=== PATIENT | female | born 1960 | race Caucasian/White ===

== ENCOUNTER → 2017-09-10 15:35 | Outpatient (CLI) | payer OTHER, SELFPAY ==
--- NOTE | 2017-09-10 15:42 | RAD_ITS ---
STUDY: X-RAY - FACIAL BONES REASON FOR STUDY: Female, 57 years old. Contusion of the right orbital region. TECHNIQUE: 3 view(s) of the facial bones. COMPARISON: None. FINDINGS: Normal bilateral frontozygomatic and zygomatic-temporal arches. Normal bilateral medial and inferior orbital mccain. Normal bilateral orbits. Normal visualized nasal bones. Normal anterior nasal spine. The remaining visualized osseous structures are normal. Normal visualized paranasal sinuses. RAD/Facial Bones min 3 Views IMPRESSION: Normal x-ray examination of the facial bones. Electronically Signed: Jorge Parada MD at 16:01 EST Tel [phone], Service support ,
== END ==
PROVIDERS: Family Provider Family Medicine; PCP Family Medicine; Visit Provider Physician Assistant Surgical
DX: S00.11XA Contusion of right eyelid and periocular area, initial encounter (principal)
CPT/HCPCS: 70150

== ENCOUNTER 2017-11-18 06:49 | Day surgery (SDC) | payer BC, SELFPAY ==
[2017-11-18] VITALS (7 sets, daily range): BP systolic 96–154; BP diastolic 62–93; PULSE 74–85; RESP 16–18; TEMP 36.3–37; O2SAT 99–100; BMI 35.5
--- NOTE | 2017-11-18 08:16 | COLBX_PTH ---
PATIENT: JADE OVERTON LOC: EN U#:[id number] AGE/SX: 57/F ROOM: RE11/18/[address]: Dr. Nghia Otero MD : 1960 BED: DIS: 11/18/2017 SPEC #: [id number] RECD: 11/18/17 15:38 STATUS: LIZZIE MAYRA #: [id number] MARIVEL: 11/18/17 08:[address]: Nghia Otero DEPT: SURGICAL PATHOLOGY RECD BY: Atul Lynne ENTERED: 11/19/17 09:29 SP TYPE: COLON BX OTHR DR: Dr. Delano Shaw MD Tissues: Descending colon Procedures: Surgery Specimen Level IV HEADER OPERATION: Colonoscopy PRE-OP DIAGNOSIS: Screening TISSUE SUBMITTED: Polyp descending colon MICROSCOPIC DIAGNOSIS Descending colon polyp, biopsy: Inflammatory polyp. AM:thalia 11/20/17 MICROSCOPIC DESCRIPTION Slides are reviewed. GROSS DESCRIPTION Received in fixative is one container labeled with the patient's name and designated descending colon polyp. The specimen consists of a cauliflower-shaped polyp measuring 1.2 x 0.8 x 0.5 cm. The specimen is bisected and totally submitted in one cassette. / AM:thalia 11/19/17 TC:1 CPT: 68864
--- NOTE | 2017-11-18 08:22 | PCM.HP.STD ---
Problem List (1) Colon cancer screening Status: Acute History of Present Illness Date of Admission: 11/18/17 The patient is a 57 year old F who presents for screening colonoscopy. Past Medical History Allergies No Known Allergies Allergy (Verified 11/15/17 11:49) Home Medications: Ambulatory Orders Medication Instructions Recorded bisoprolol 10 1 tab PO DAILY 30 Days #30 09/10/17 mg-hydrochlorothiazide 6.25 mg tablet lovastatin 40 mg tablet 40 mg PO DAILY 30 Days #30 09/10/17 Smoking Status: Current every day smoker Tobacco Use: Cigarettes Review of Systems Cardiovascular: Denies: Chest Pain, Chest Pressure, Chest Tightness, Palpitations Respiratory: Denies: Cough, Hemoptysis, Shortness of breath at rest, Shortness of breath upon exertion, Wheezing Gastrointestinal: Denies: Abdominal Pain, Constipation, Diarrhea, Hematemesis, Nausea, Melena, Vomiting VTE Information - Inpt Only VTE Present on Admission: No VTE Mechan Device Prophylaxis: None VTE Pharm Prophylaxis ordered?: No Reason prophylaxis not ordered:: Treatment Not Indicated Patient Problems: Active and Suspected Problems (Last Reviewed 10/22/17 @ 14:14 by Adele Lopez) Colon cancer screening (Acute) - Physical Exam Lungs: Clear to auscultation Cardiovascular: Regular rate, Regular Rhythm, No murmurs Abdomen: Bowel Sounds Present, Soft, Non Tender, Non-Distended Vital Signs Temp Pulse Resp BP Pulse Ox 98.6 F 85 16 119/86 H 99 11/18/17 07:21 11/18/17 07:21 11/18/17 07:21 11/18/17 07:21 11/18/17 07:21 Oxygen Delivery Method Room Air Weight: 233 lb 14.567 oz Body Mass Index (BMI) 35.5 Assessment/Plan Active and Suspected Problems (Last Reviewed 10/22/17 @ 14:14 by Adele Lopez) Colon cancer screening (Acute) My plan is to perform a screening colonoscopy.
--- NOTE | 2017-11-18 08:23 | PCM.OPRPT ---
Problem List (1) Colon cancer screening Status: Acute Report of Operation Date of Procedure: 11/18/17 Pre-Operative Diagnosis: z12.11 screening colonoscopy Post-Operative Diagnosis: Same Surgery/Procedure Performed:: [id number] colonoscopy with snare polypectomy of the descending colon polyp Type of Anesthesia:: MAC Anesthesiologist: Teddy Nichols Description of Procedure: Patient was brought into the endoscopy suite. Placed in the left lateral decubitus position. Given graded anesthesia. Scope was inserted into the rectum and directed through the sigmoid colon, descending colon, transverse colon, ascending colon, to the cecum. Operative findings: 1. Cecum: Normal appearance no mass lesions normal ileocecal valve. 2. Ascending colon: Normal appearance no mass lesions 3. Transverse colon: Normal appearance no mass lesions. 4. Descending colon: Normal appearance no mass lesions. Large polyp on a long stalk was identified in the distal descending colon. This was removed with snare cautery technique. I sucked it to the scope and brought it out through the anus without difficulty. 5. Sigmoid colon: Normal appearance no mass lesions. 6. Rectum: Normal appearance no mass lesions retroflexion did not show any significant internal hemorrhoidal disease. The scope was withdrawn digital rectal exam was performed showing no masses. The patient will need another colonoscopy in 1-3 years depending on the pathology report. - Admit VTE Documentation VTE Present on Admission: No VTE Mechan Device Prophylaxis: None VTE Pharm Prophylaxis ordered?: No Reason prophylaxis not ordered:: Treatment Not Indicated
== END 2017-11-18 09:10 | disposition home or self-care (01) ==
LOC: EN 06:49 → AC 06:51
PROVIDERS: Family Provider Family Medicine; PCP Family Medicine; Visit Provider Surgery
PROC: 0DJD8ZZ Inspection of Lower Intestinal Tract, Via Natural or Artificial Opening Endoscopic (ICD-10-PCS; CPT 45378; principal; 2017-11-18 07:55)
DX: Z12.11 Encounter for screening for malignant neoplasm of colon (principal); K51.40 Inflammatory polyps of colon without complications; I10 Essential (primary) hypertension; E78.00 Pure hypercholesterolemia, unspecified; F17.210 Nicotine dependence, cigarettes, uncomplicated; Z79.899 Other long term (current) drug therapy
CPT/HCPCS: 45380; 88305; J7120; J1610

== ENCOUNTER → 2019-06-02 | Outpatient (CLI) | payer BC, SELFPAY ==
--- NOTE | 2019-06-02 13:42 | ART_ITS ---
Reason For Study: Claudication Procedure A bilateral lower extremity continuous wave Doppler with analog waveform analysis,segmental pressures,and ankle brachial indexes without exercise. Left Segmental Pressures Left brachial= 198mmHg. Left posterior tibial artery = 229mmHg. Left dorsalis pedis artery = 223mmHg. Left digit = 175 mmHg. The left dorsalis pedis waveforms are triphasic. The left posterior tibial artery waveforms are triphasic. Right Segmental Pressures Right brachial= 200mmHg. Right posterior tibial artery = 233mmHg. Right dorsalis pedis artery = 237mmHg. Right digit = 161 mmHg. The right dorsalis pedis waveforms are triphasic. The right posterior tibial artery waveforms are triphasic. Indices The right ankle brachial index by the dorsalis pedis is 1.19. The right ankle brachial index by the posterior tibial artery is 1.17. The right digital-brachial index is 0.81. The left ankle brachial index by the dorsalis pedis is 1.12. The left ankle brachial index by the posterior tibial artery is 1.15. The left digital-brachial index is 0.88. Interpretation Summary Triphasic Doppler waveforms are noted at ankle level bilaterally. Pulse-volume recordings appear satisfactory at all levels bilaterally, including low-thigh, calf, ankle, and digital levels. Resting ankle-brachial indices are normal bilaterally. Digital-brachial indices are normal bilaterally. There is no evidence of significant arterial occlusive disease in the lower extremities bilaterally. Ordering Physician: Delano Shaw Referring Physician: Delano Shaw Performed By: Addie Thompson RVT
== END | disposition home or self-care (01) ==
LOC: CVS 13:38
PROVIDERS: Family Provider Family Medicine; PCP Family Medicine; Referring Provider Family Medicine; Visit Provider Family Medicine
DX: I73.9 Peripheral vascular disease, unspecified (principal)
CPT/HCPCS: 93923

== ENCOUNTER 2020-11-23 06:44 | Day surgery (SDC) | payer OTHER, SELFPAY ==
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
--- NOTE | 2020-11-16 12:53 | EKG12_ITS ---
Test Reason : PRE OP Blood Pressure : / mmHG Vent. Rate : 066 BPM Atrial Rate : 066 BPM P-R Int : 166 ms QRS Dur : 086 ms QT Int : 384 ms P-R-T Axes : 056 026 065 degrees QTc Int : 402 ms Normal sinus rhythm Septal [place], age undetermined Confirmed by EMILE SANABRIA, SOULEYMANE ([id number]), industrial editor JOELLEN GU ([id number]) on 11/17/2020 2:08:08 PM Referred By: Grey Francois Confirmed By:SOULEYMANE BAPTISTE MD
[2020-11-16 14:44] LABS: Absolute Lymphocyte Count 2.05 X10^3/uL (0.83-4.51); Absolute Neutrophil Count 6.2 X10^3/uL (2.0-7.7); Basophil# 0.03 X10^3/uL; Basophil% 0.3 % (0-1); Eosinophil# 0.03 X10^3/uL; Eosinophils% 0.3 % (0-5); Hematocrit 44.5 % (37-47); Hemoglobin 14.2 g/dL (12.0-15.0); Lymphocyte # 2.05 X10^3/ul (0.83-4.51); Lymphocyte % 22.1 % (19-41); Mean Corp Hgb Conc 31.9 g/dL (32-36); Mean Corpuscular Hgb 32.9 pg (27.0-32.0); Mean Corpuscular Volume 103.2 fL (81-99); Mean Platelet Vol. 9.3 fl (6.2-12.0); Monocyte# 0.87 X10^3/uL; Monocyte% 9.4 % (0-10); NRBC Flagged by Analyzer 0 % (0-5); Neutrophil # 6.23 X10^3/uL (2.7-7.7); Neutrophil % 67.4 % (47-70); Platelet Count 358 K/mm3 (150-450); RBC Distribution Width CV 12.1 % (11.6-14.6); RBC Distribution Width SD 46.1 fl (35.1-43.9); Red Blood Count 4.31 M/mm3 (4.2-5.4); White Blood Count 9.3 K/mm3 (4.4-11.0)
[2020-11-16 14:58] LABS: Magnesium 2.3 mg/dL (1.6-2.6)
[2020-11-16 15:40] LABS: Anion Gap 7 (5-15); BUN 11 mg/dL (7-18); BUN/Creat Ratio 12.8 RATIO (10-20); Calcium,Total 9.5 mg/dL (8.5-10.1); Chloride 97 mmol/L (98-107); Creatinine, Serum 0.86 mg/dL (0.55-1.02); EST Glomerular Filtration Rate 71 mL/min (>60); Est Glom Filt Rate - Afr Amer 86 mL/min (>60); Glucose 113 mg/dL (74-106); Potassium 4.6 mmol/L (3.5-5.1); Sodium Level 130 mmol/L (136-145)
[2020-11-17 09:56] LABS: Thyroid Stim Hormone (TSH) 2.34 uIU/mL (0.358-3.74)
[2020-11-23] VITALS (9 sets, daily range): BP systolic 126–165; BP diastolic 68–87; PULSE 75–91; RESP 16–18; TEMP 36.2–36.7; O2SAT 94–100; BMI 40.9
[2020-11-23] MEDS: Lactated Ringers 1,000 ML 999 ML IV ×2 (07:19→11:30)
[2020-11-23] MEDS: Scopolamine 1mg/72hr Patch 1 PATCH TD (07:20)
[2020-11-23] MEDS: Gabapentin 600 MG Tablet PO (07:20)
[2020-11-23] MEDS: Celecoxib 200 MG Capsule 400 MG PO (07:20)
[2020-11-23] MEDS: Acetaminophen 500 MG Tablet 1000 MG PO ×2 (07:21→14:00)
[2020-11-23 07:50] LABS: Bedside Glucose 135 mg/dL (70-110)
--- NOTE | 2020-11-23 09:00 | RAD_ITS ---
STUDY: X-RAY - PELVIS AND LEFT HIP REASON FOR EXAM: Left hip arthroplasty. TECHNIQUE: 3 intraoperative images of the pelvis and hip. COMPARISON: None. FINDINGS: There is a left hip arthroplasty without evidence of complication. 8 seconds of fluoroscopy time was used. Electronically Signed: Kwadwo Frederick MD at 14:07 EDT Tel , Service support , RAD/Hip 1 view with Pelvis
[2020-11-23] MEDS: dexAMETHasone 10 MG/ML Vial IV (09:04)
--- NOTE | 2020-11-23 10:35 | OP.PCM_ITS ---
Report of Operation Date of Procedure: 11/23/20 Pre-Operative Diagnosis: Left hip primary osteoarthritis Post-Operative Diagnosis: Left hip primary osteoarthritis Surgery/Procedure Performed:: Left minimally invasive direct anterior hip replacement Description of Surgical Findings:: Stable hip with equal leg lengths pinsetter mechanic automatic: Scott Azul Type of Anesthesia: Spinal Anesthesiologist: Toi Herrera Special Medications: 2 g Ancef, 1 g TXA at incision, 1 g TXA closure, 10 mg Decadron, joint cocktail (5 mg Duramorph, 30 mL of 0.5% Ropivicaine, 1000 units of epinephrine, 30 mg of Toradol) Specimen's removed: Bony cuts Estimated Blood Loss (mL): 200 Fluids Replaced: 1400 ML Description of Procedure: Components used: 1. Accolade 2 Alvarado femoral stem size 5 127? 2. [place] trident 2 acetabular shell size 50 mm 3. Alvarado X3 polyethylene E 4. [place] Biolox delta 36 mm, 5 mm femoral head Brief history operative indications: 60yo female who failed conservative measures for their hip osteoarthritis. X- rays were consistent with osteoarthritis including joint space narrowing, osteophyte formation and subchondral cysts. Total hip replacement was discussed with the patient with risks and benefits including but not limited to blood loss, DVTs, PEs, neurovascular damage, dislocation, general risks of anesthesia including loss of life. Patient demonstrated an understanding medical clearance is obtained the patient was consented for surgery. Procedure: On the date of procedure the patient's L hip was marked in the preoperative area. Patient was then taken back to the operating room where anesthesia assumed control of the C-spine and airway and administered anesthetic. Patient was transferred to the operating table and placed in the supine position. The hips were placed at the break of the bed and a sacral bump was placed. L The lower extremity was then prepped out in a sterile fashion using chlorhexidine while the surgeon scrubbed. The PA was vital in the positioning of the patient. Upon reentering the room the left lower extremity was draped in the standard orthopedic fashion and the incision was marked. A timeout was called and everyone agreed upon the side, the site, the procedure be performed, antibody given, and patient's identity. At this time incision was made through skin, subcutaneous tissue, and fat down to fascia. The fascia was then incised and the TFL was retracted laterally. A retractor was placed on the lateral border of the femoral neck. Attention was directed to the inferior portion of the approach and all crossing vessels were identified and appropriately coagulated. A retractor was then placed on the medial portion of the femoral neck. The anterior capsule was then cleared of all soft tissue and then H shaped capsulotomy was made. The retractors were then placed inside the capsule. The femoral neck was identified and a cleanup cut was made. At this time a power corkscrew was used to remove the femoral head. Attention was then turned toward the acetabulum where the soft tissues were appropriately retracted and the acetabulum was sequentially reamed to 50 mm. A 50 mm cup was then selected and impacted into place. Acetabular liner was impacted into place and locking mechanism was verified. The position of the acetabular cup was then verified under live fluoroscopy. Attention was then turned to the femur. Soft tissue releases on the medial and lateral femoral neck were appropriately done, the leg was externally rotated and lateralized. A Candelario retractor was placed medially and proximally to the greater trochanter this allowed appropriate visualization and exposure of the femoral canal. Rongeour was then used to remove excess lateral bone. A canal finder and entry broach were used to open the proximal canal. Once we verified we were down the femoral canal we subsequently broached up to a size 5 femur. The appropriate neck was placed in the previously selected head was trialed with a 5 mm neck. Traction was pulled and the hip was reduced with internal rotation. Once it was appropriately reduced and stability was checked. There was minimal shuck, equal leg lengths and appropriate stability with hype rextension and external rotation as well as with 90? flexion and internal rotation. Fluoroscopy was then also used to verify the position of the components and leg lengths using the contralateral side for comparison. The trial components were then dislocated the proximal femur was again exposed and the components were removed from the wound. The final components were verified and opened. The wound was copiously irrigated out with normal saline. The acetabulum was checked for any residual debris. The final components were placed and impacted. Traction and internal rotation were again used to reduce the hip. After adequate reduction the hip remained stable with appropriate leg lengths. The final components were once again checked with live fluoroscopy and were found to be satisfactory. The wound was then copiously irrigated with normal saline once more, and hemostasis was obtained. Closure was then done using #1 Vicryl runner to close the fascia. A 2-0 vicryl interuppted sutures were used to close the subcutaneous skin. A 3-0 Monocryl and Steri-Strips were used for final skin closure. A Silverlon dressing was placed. Patient was awakened by anesthesia and transferred to the [facility]. Patient was then transferred to the PACU for recovery. Postoperative plan: Patient will get 24 hours postop antibiotics. Patient will get in-house physical therapy and will be weight-bear as tolerated. Patient will follow up in office in 2 weeks for a wound check and x-rays. Aspirin 81 mg twice daily. Complications No intraoperative complications Admit VTE Documentation VTE Present on Admission: No VTE Mechan Device Prophylaxis: SCD's and Thigh High FRAN Hose VTE Pharm Prophylaxis ordered?: Yes
--- NOTE | 2020-11-23 11:20 | RAD_ITS ---
STUDY: X-RAY - PELVIS AND LEFT HIP REASON FOR EXAM: Postop left hip arthroplasty. TECHNIQUE: 2 views of the pelvis and hip. COMPARISON: Intraoperative images. FINDINGS: There is postoperative gas in the soft tissues and surgical clips in the pelvis. Normal bilateral superior and inferior pubic rami. Normal pubic symphysis. Normal bilateral ischial tuberosities. There is a left hip arthroplasty without evidence of complication. RAD/Hip Min 2 Views (Portable) IMPRESSION: Uncomplicated left hip arthroplasty. Electronically Signed: Kwadwo Frederick MD at 14:03 EDT Tel , Service support ,
[2020-11-23] MEDS: Cefazolin 1 GM/50 ML BAG IV (13:27)
== END 2020-11-23 15:35 ==
LOC: SDC 06:44 → AC 06:45
PROVIDERS: Anesthesiology; PCP Family Medicine; Referring Provider Specialist; Visit Provider Specialist
PROC: (CPT 27284; principal; 2020-11-23 08:35)
DX: M16.12 Unilateral primary osteoarthritis, left hip (principal); F17.210 Nicotine dependence, cigarettes, uncomplicated; I10 Essential (primary) hypertension; E78.00 Pure hypercholesterolemia, unspecified; Z79.1 Long term (current) use of non-steroidal anti-inflammatories (NSAID); Z79.899 Other long term (current) drug therapy; Z20.828 Contact with and (suspected) exposure to other viral communicable diseases
CPT/HCPCS: 27130; 36415; 73501; 73502; 76000; 80048; 82962; 83735; 84443; 85025; 87081; 87426; 93005; 97162; C1776; C9803; J7120; J2405

== ENCOUNTER → 2020-12-09 13:39 | Outpatient (CLI) | payer OTHER, SELFPAY ==
[2020-11-23 07:26] VITALS: BMI 40.9
--- NOTE | 2020-12-09 13:42 | VDLE_ITS ---
Reason For Study: RLE swelling, S/P LT THR RIGHT GSV is normal. CFV is compressible, spontaneous, phasic, competent and demonstrates normal augmentation. FV is compressible, spontaneous, phasic, competent and demonstrates normal augmentation. POP V is compressible, spontaneous, phasic, competent and demonstrates normal augmentation. T/P Trunk is compressible. PTV is compressible. RT PerV is compressible. Procedure This is a venous duplex using B-mode, color flow and spectral Doppler. Exam performed in department. The exam was diagnostic. A preliminary report was called and/or faxed to Dr. Shaw @ 2:05 pm @ [phone]. VL/Venous Duplex US, Unilateral Interpretation Summary Deep veins of the right lower extremity are patent and compressible segmentally . There is no evidence of right lower extremity deep vein thrombosis. Valvular competence lula ears intact within the proximal deep venous system on the right . The right great saphenous vein a ppears patent and compressible segmentally. Ordering Physician: Delano Shaw Referring Physician: Delano Shaw Performed By: Louann Maynard, SOLOMON, RVT
== END ==
PROVIDERS: PCP Family Medicine; Referring Provider Family Medicine; Visit Provider Family Medicine
DX: R60.0 Localized edema (principal)
CPT/HCPCS: 93971

== ENCOUNTER 2021-01-24 11:00 | Outpatient (RCR) | payer OTHER, SELFPAY ==
[2020-11-23 07:26] VITALS: BMI 40.9
[2021-01-17 09:58] VITALS: BP 183/83; PULSE 67; RESP 16; TEMP 36.6; BMI 38.0
--- NOTE | 2021-01-17 12:32 | HP.PCM_ITS ---
History of Present Illness Date of Service: 01/17/21 Chief Complaint: Infected, dehiscent surgical wound?left hip History of Wound: This is a 60-year-old female who underwent left total hip replacement at [facility] on November 23, 2020. Approximately 2 weeks postoperatively, the patient developed a surgical wound dehiscence. She has been under the care of her orthopedic surgeon, Dr. Grey Francois, who was [facility] the [facility] for further evaluation and management. Dr. Francois has been managing the patient in the postop period, and feels as though the underlying fascia remains intact. Current management includes the use of a silver alginate. Patient is currently in the midst of a course of oral doxycycline. It appears as though no recent wound cultures have been obtained. Routine laboratory studies were obtained preoperatively (11/16/20), and no significant abnormalities are noted. The patient is now fully ambulatory. She is consuming a protein shake on a daily basis. Referral was for the preparation and implementation of negative pressure wound therapy, if felt to be appropriate. [facility] Medical History (Updated 01/17/21 @ 12:[address] Teddy García MD) Alcohol use disorder, mild, abuse Colon cancer screening Contusion of right eyebrow Hyperlipidemia Hypertension Hypertension Laceration of eyebrow, right Obesity (BMI 30-39.9) Surgical wound dehiscence Surgical wound infection Tobacco abuse Tobacco abuse counseling Home Medications lovastatin 40 mg tablet 40 mg PO DAILY 30 Days #30 09/10/17 [History Last Taken Unknown] cyanocobalamin (vitamin B-12) 1,000 mcg PO DAILY 11/09/20 [History Last Taken Unknown] escitalopram oxalate 5 mg PO DAILY 11/09/20 [History Last Taken Unknown] meloxicam 15 mg PO BID 11/09/20 [History Last Taken Unknown] bisoprolol fumarate 10 mg PO DAILY 01/17/21 [History Last Taken Unknown] Allergy/AdvReac Type Severity Reaction Status Date / Time No Known Allergies Allergy Verified 11/09/20 13:58 Family History (Updated 11/27/17 @ 13:55 by Louann Hoffman) Father Diabetes Mother Hypertension Surgical History (Updated 01/17/21 @ 12:[address] Teddy García MD) History of removal of cyst History of tonsillectomy History of tubal ligation S/P colonoscopy with polypectomy (~11/18/17) Status post left hip replacement Social History (Updated 11/28/17 @ 06:[address] Nghia Otero MD) Smoking Status: Current every day smoker alcohol intake: never substance use type: does not use Vital Signs Vital Signs Vital Signs: 01/17/21 09:58 Temperature 97.9 F Temperature Source Temporal Pulse Rate 67 Respiratory Rate 16 Blood Pressure 183/83 H Blood Pressure Mean 116 Blood Pressure Source Monitor Blood Pressure Position Sitting Blood Pressure Location Right Arm Oxygen Delivery Method Room Air Weight Weight: 250 lb Body Mass Index (BMI) 38.0 Physical Exam Const alert, oriented x3, no apparent distress and well nourished General Appearance: cooperative, comfortable and well developed Orientation / Consciousness: awake, oriented to person, oriented to place and oriented to time HEENT normocephalic and head/scalp atraumatic Head and Scalp: normal to inspection, normocephalic and atraumatic External Ear: external ears normal Eyes PERRL and EOMs intact bilaterally General Eye: normal appearance of both eyes Resp normal respiratory effort, normal air movement, no retractions and no use of accessory muscles Effort and Inspection: able to speak in complete sentences Extremity no calf tenderness General Extremity: Negative for clubbing or cyanosis Skin Wound Narrative: And open, infected, dehiscent surgical wound is noted on the patient's left hip, related to recent surgical left hip replacement. There is a disagreeable odor. Contained within the dehiscent wound is a significant amount of necrotic, nonviable, and purulent material. There is slight undermining. Wound dimensions are documented elsewhere. There is no significant surrounding erythema or cellulitis. Cultures have been obtained by swab for both aerobic and anaerobic bacterial growth. Neuro oriented x3, CN's II-XII intact bilaterally and moves all extremities Sensorium / Orientation: awake, alert, oriented to person, oriented to place and oriented to time Speech: speech normal Psych Appearance: grossly normal and appropriate Attitude: calm and engaged Activity / Motor Behavior: appropriate eye contact Speech: normal speech Mood & Affect: euthymic mood Debridement Note Debridement Note Post-Debridement Measurements and Additional Note: Post-Debridement Francisco urements/Treatment [id number] - Nurse 1 - General Ulcer Assessment Start: 01/17/21 09:58 Freq: Status: Active Protocol: TAMIKO Activity Type Activity Date Activity User E-Sign Co-Sign Detail Recorded Client Recorded Date Recorded By Document 01/17/21 09:58 [id number] 01/17/21 10:06 01/17/21 09:58 WC - Today's Visit Information Type of service Initial Visit Arrival Mode Ambulatory Transfer Assistance None Accompanied by self Patient Identification Verified (Name & Yes ) Patient Requires Transmission-Based No Precautions Safety Precautions NA Height and Weight Height 5 ft 8 in Weight 250 lb Weight in Pounds 250.0 lbs Body Mass Index (BMI) 38.0 BMI Classification Obese BSA - Radha 2.25 Vital Signs Temperature (97.8 F-99.1 F) 97.9 F Temperature Source Temporal Pulse Rate (60-100) 67 Pulse Location Monitor Respiratory Rate (12-18) 16 Respiratory rate source Observation Oxygen Delivery Method Room Air Blood Pressure (90/60-120/80) 183/83 H Blood Pressure Mean 116 Source Monitor Position Sitting Blood Pressure Location Right Arm History Since Last Visit- (Skip if this is Patient's initial visit) Left Footwear Regular Shoe Right Footwear Regular Shoe Pain Scale: 0-10 Numeric Is Patient Pain Free? Yes Communication Assessment Preferred language Arabic Loans Consultant Required No Able to Read Yes Able to Write Yes Communication Tools None Caregiver Communication Skills No Impairment Impairment Right Hearing Abillity Normal Left Hearing Abillity Normal Visual Assistive Devices Glasses Teaching Assessment Preferences Verbal,Written Barriers to Learning None Readiness To Learn Excellent Willingness to Engage in Self Management High Activies Readiness to Engage in Self Management High Activities Anxiety Level Calm Cooperation Cooperative Perception Coherent Interest in Health Problem Asks Questions Education Importance Acknowledges Need Does Patient Smoke tobacco or other Yes substances Smoking Status Current every day smoker Is Patient Diabetic No Functional Assessment Recent Decline in Ability to Perform Denies Any Declines Assistive Device With Patient No Culture/Mandaeism/Client Support Associate Cultural/Mandaeism Needs that may affect No Treatment Plan Would you allow our hospital specifications writer to No meet you for the purpose of spiritual/ emotional support? Client Support Associate to contact place of [facility] No Teaching: Wound Center *Welcome to the Wound Center -Person Taught Patient -Teaching Method Discussion -Response to teaching Verbalize understanding - Nurse 1 - General Ulcer Measurement Start: 01/17/21 09:58 Freq: Status: Active Protocol: Activity Type Activity Date Activity User E-Sign Co-Sign Detail Recorded Client Recorded Date Recorded By Document 01/17/21 09:58 [id number] 01/17/21 10:06 MW 01/17/21 09:58 Wound Center Nurse 1 #1 left hip -Combined with other wound No -Current Size (cm) - Length 1.8 -Current Size (cm) - Width 5.0 -Current Size (cm) - Depth 2.0 -Total Square Cm 9.00 -Date of Last Picture (Recall this 01/17/21 field) -Photo Taken Yes -Epithelialization None Present -Tunneling No -Undermining/Tunneling No -Circular Undermining No -Exudate Amt Large -Exudate Type Yellow/Green -Wound Margin Distinct, Outline Attached -Granulation Amt Small (1-33%) -Granulation Quality Viking -Slough/Fibrin Yes -Necrosis Amt Large (67-100%) -Necrotic Tissue Type Adherent Slough -Structure Exposed N/A -Texture (Crystal-wound Skin Appearance) Assessed, Localized Edema -Moisture (Crystal-wound Skin Appearance) No Abnormality, Assessed -Color (Crystal-wound Skin Appearance) No Abnormality, Assessed -Temperature (Crystal-wound Skin No Abnormality Appearance) (Pt Warm) -Tenderness on Palpation (Crystal-wound Yes Skin Appearance) -Ulcer Cleansing Rinsed/ Irrigated with Saline -Foul Odor after Cleansing No -Anesthetic Used 5% Lidocaine Gel Lower Limb Edema Present No WC - Nurse 2 - General Ulcer CM Notes Start: 01/17/21 09:58 Freq: Status: Active Protocol: Activity Type Activity Date Activity User E-Sign Co-Sign Detail Recorded Client Recorded Date Recorded By Document 01/17/21 11:47 PL [id number] 01/17/21 11:48 PL 01/17/21 11:47 Wound Center Nurse 2 #1 left hip -Time 10:32 -Correct Patient Yes -Correct Side, Site, Position Yes -Correct Procedure Yes -Procedure Performed Yes -Type of Procedure Debridement -Clinical Debridement Subcutaneous -Tissue Removed Subcutaneous -Post Debridement (cm) - Length 1.8 -Post Debridement (cm) - Width 5.0 -Post Debridement (cm) - Depth 2.0 -Total Square (Post) (cm) 9.00 -Area of Debridement (cm) - Length 1.8 -Area of Debridement (cm) - Width 5.0 -Total Square (Area) (cm) 9.00 -Tunneling No -Undermining/Tunneling No -Circular Undermining No -Wound/Ulcer Outcome Not Healed -Ulcer Cleansing Rinsed/ Irrigated with Saline -Foul Odor after Cleansing No -Bioengineered Tissue No -Bleeding Controlled with Pressure -Treatment Response Procedure Tolerated Well -Debridement - Subq, 1st 20sq cm Yes Pain Scale: 0-10 Numeric Is Patient Pain Free? Yes - Nurse 3 - General Ulcer D/C NN Start: 01/17/21 09:58 Freq: Status: Active Protocol: Activity Type Activity Date Activity User E-Sign Co-Sign Detail Recorded Client Recorded Date Recorded By Document 01/17/21 10:50 MW [id number] 01/17/21 10:51 MW 01/17/21 10:50 Wound Care Nurse 3 #1 left hip -Ulcer Cleansing Rinsed/ Irrigated with Saline -Foul Odor after Cleansing No -Negative Pressure Wound Therapy N/A -Primary Dressing Covered/Secured with Dry Gauze, Secured with Tape -Other Covering abd pad Treatment Response Procedure Tolerated Well Pain Scale: 0-10 Numeric Is Patient Pain Free? Yes Teaching: Wound Center Dressing Your Wound -Person Taught Patient -Teaching Method Discussion, Demonstration -Response to teaching Verbalize understanding WC - Visit Discharge Discharge Condition Stable Ambulatory Status Ambulatory Transportation Private Auto Accompanied by self Medication Reconcilliation completed & No provided to patient/care provider Clinical Summary of Care Provided Yes Wound debrided: Left hip Laterality: Left Type of Debridement: Excisional debridement Anesthesia Used: 5% Lidocaine Gel Depth: Down to and including healthy tissue and in the subcutaneous layer Percentage of wound debrided: 100 Instrument Used: 5mm curette Tissue Removed: Bioburden, necrotic tissue, purulent material Severity: Fat Layer Exposed Amount of bleeding with debridement: Mild Bleeding Controlled with: Compression and gauze Patient tolerated procedure: Patient tolerated procedure well Debridement Free Text: The debridement was carried down through the dermal laye rs and into the subcutaneous tissue. The underlying fascia appears to be intact. Assessment/Plan Assessment/Plan (1) Surgical wound dehiscence: CODE(S): T81.31XA - Disruption of external operation (surgical) wound, not elsewhere classified, initial encounter (2) Surgical wound infection: CODE(S): T81.49XA - Infection following a procedure, other surgical site, initial encounter (3) Status post left hip replacement: CODE(S): Z96.642 - Presence of left artificial hip joint (4) Obesity (BMI 30-39.9): CODE(S): E66.9 - Obesity, unspecified (5) Hypertension: CODE(S): I10 - Essential (primary) hypertension (6) Hyperlipidemia: CODE(S): E78.5 - Hyperlipidemia, unspecified (7) Tobacco abuse: CODE(S): Z72.0 - Tobacco use (8) Tobacco abuse counseling: CODE(S): Z71.6 - Tobacco abuse counseling (9) Alcohol use disorder, mild, abuse: CODE(S): F10.10 - Alcohol abuse, uncomplicated PLAN: This is a 60-year-old female who presents status post left total hip replacement surgery performed on November 23, 2020. Approximately 2 weeks following her surgery, her surgical incision dehisced, and has been managed by her orthopedic surgeon, Dr. Grey Francois, since that time. Patient has now been referred for additional management. There is concern that the surgical wound may be infected, judging by its appearance and the odor emanating from the wound itself. Swab cultures have been obtained for both aerobic and anaerobic bacterial growth. Results will be awaited. Patient is currently on doxycycline, and has been instructed to continue the doxycycline prescription to completion. The patient is a smoker, and has been counseled as to the hazards of smoking, and how it may adversely affect wound healing. She has been advised to quit. Recent laboratory results have been reviewed, and appear satisfactory. We are to implement the use of one quarter strength Dakin's solution soaked gauze, which will be applied topically on a daily basis. The goal is to address issues related to suspected infection, improved the wound status, and ultimately resort to a modality such as negative pressure wound therapy (NPWT). The patient is to return in 1 week for reassessment. Total time: 65 minutes.
[2021-01-24 11:15] VITALS: BP 178/100; PULSE 87; TEMP 36.3; BMI 38.0
--- NOTE | 2021-01-24 12:42 | HP.PCM_ITS ---
History of Present Illness Date of Service: 01/24/21 Chief Complaint: Infected, dehiscent surgical wound?left hip History of Wound: This is a 60-year-old female who underwent left total hip replacement at [facility] on November 23, 2020. Approximately 2 weeks postoperatively, the patient developed a surgical wound dehiscence. She had been under the care of her orthopedic surgeon, Dr. Grey Francois, who [facility] and shravan godoy. Dr. Francois had been managing the patient in the postop period, and felt as though the underlying fascia remained intact. Management included the use of a silver alginate. Patient was treated with a course of oral doxycycline. No recent wound cultures had been obtained. Routine laboratory studies were obtained preoperatively (11/16/20), and no significant abnormalities were noted. The patient is fully ambulatory. She is consuming a protein shake on a daily basis. Referral was for the preparation and implementation of negative pressure wound therapy, if felt to be appropriate. [facility] Medical History (Updated 01/17/21 @ 12:[address] Teddy García MD) Alcohol use disorder, mild, abuse Colon cancer screening Contusion of right eyebrow Hyperlipidemia Hypertension Hypertension Laceration of eyebrow, right Obesity (BMI 30-39.9) Surgical wound dehiscence Surgical wound infection Tobacco abuse Tobacco abuse counseling Home Medications lovastatin 40 mg tablet 40 mg PO DAILY 30 Days #30 09/10/17 [History Last Taken Unknown] cyanocobalamin (vitamin B-12) 1,000 mcg PO DAILY 11/09/20 [History Last Taken Unknown] escitalopram oxalate 5 mg PO DAILY 11/09/20 [History Last Taken Unknown] meloxicam 15 mg PO BID 11/09/20 [History Last Taken Unknown] bisoprolol fumarate 10 mg PO DAILY 01/17/21 [History Last Taken Unknown] Allergy/AdvReac Type Severity Reaction Status Date / Time No Known Allergies Allergy Verified 11/09/20 13:58 Family History (Updated 11/27/17 @ 13:55 by Louann Hoffman) Father Diabetes Mother Hypertension Surgical History (Updated 01/17/21 @ 12:[address] Teddy García MD) History of removal of cyst History of tonsillectomy History of tubal ligation S/P colonoscopy with polypectomy (~11/18/17) Status post left hip replacement Social History (Updated 11/28/17 @ 06:[address] Nghia Otero MD) Smoking Status: Current every day smoker alcohol intake: never substance use type: does not use Vital Signs Vital Signs Vital Signs: 01/24/21 11:15 Temperature 97.3 F L Temperature Source Temporal Pulse Rate 87 Blood Pressure 178/100 H Blood Pressure Mean 126 Blood Pressure Source Monitor Blood Pressure Position Semi-Fowlers Blood Pressure Location Right Arm Weight Weight: 250 lb Body Mass Index (BMI) 38.0 Physical Exam Const alert, oriented x3, no apparent distress and well nourished General Appearance: cooperative, comfortable and well developed Orientation / Consciousness: awake, oriented to person, oriented to place and or iented to time Nutritional Appearance: obese HEENT normocephalic Head and Scalp: normal to inspection, normocephalic and atraumatic External Ear: external ears normal Eyes PERRL and EOMs intact bilaterally General Eye: normal appearance of both eyes Resp normal respiratory effort, normal air movement, no retractions and no use of accessory muscles Effort and Inspection: able to speak in complete sentences Extremity no clubbing, cyanosis or edema and no calf tenderness General Extremity: Negative for clubbing or cyanosis Skin Skin Narrative: The dehiscent surgical wound persists on the left hip. There has been significant improvement in the appearance of the wound, with far less non-viable and necrotic tissue. There is no current odor. There is no significant drainage. There is no surrounding erythema or cellulitis. There is a moderate amount of bioburden. Dimensions are documented elsewhere. Neuro oriented x3, CN's II-XII intact bilaterally and moves all extremities Speech: speech normal Psych Appearance: grossly normal and appropriate Activity / Motor Behavior: appropriate eye contact Speech: normal speech Mood & Affect: euthymic mood Thought Process: normal thought process Debridement Note Debridement Note Post-Debridement Measurements and Additional Note: Post-Debridement Measurements/Treatment WC - Nurse 1 - General Ulcer Assessment Start: 01/17/21 09:58 Freq: Status: Active Protocol: TAMIKO Activity Type Activity Date Activity User E-Sign Co-Sign Detail Recorded Client Recorded Date Recorded By Document 01/17/21 09:58 MW [id number] 01/17/21 10:06 MW Document 01/24/21 11:15 KR [id number] 01/24/21 11:16 KR 01/17/21 01/24/21 09:58 11:15 WC - Today's Visit Information Type of service Initial Visit Follow-up Visit (Physician/BUILDING MAINTENANCE MECHANIC ) Arrival Mode Ambulatory Ambulatory Transfer Assistance None Accompanied by self Patient Identification Verified (Name & Yes Yes ) Patient Requires Transmission-Based No Precautions Safety Precautions NA Height and Weight Height 5 ft 8 in Weight 250 lb Weight in Pounds 250.0 lbs Body Mass Index (BMI) 38.0 38.0 BMI Classification Obese Obese BSA - Radha 2.25 Vital Signs Temperature (97.8 F-99.1 F) 97.9 F 97.3 F L Temperature Source Temporal Temporal Pulse Rate (60-100) 67 87 Pulse Location Monitor Monitor Respiratory Rate (12-18) 16 Respiratory rate source Observation Oxygen Delivery Method Room Air Blood Pressure (90/60-120/80) 183/83 H 178/100 H Blood Pressure Mean 116 126 Source Monitor Monitor Position Sitting Semi-Fowlers Blood Pressure Location Right Arm Right Arm Have you changed medications since your No last visit? Any new allergies or adverse reactions No Had a fall/change in ADL's that may No increase risk of falls Signs or symptoms of abuse and/or No neglect since last visit Has dressing in place as prescribed Yes Has compression in place as prescribed N/A Has offloadiing in place as prescribed N/A Experienced any changes in pain level or No management History Since Last Visit- (Skip if this is Patient's initial visit) Left Footwear Regular Shoe Regular Shoe Right Footwear Regular Shoe Regular Shoe Pain Scale: 0-10 Numeric Is Patient Pain Free? Yes Yes Communication Assessment Preferred language Divehi Licensed Surveyor Required No Able to Read Yes Able to Write Yes Communication Tools None Caregiver Communication Skills No Impairment Impairment Right Hearing Abillity Normal Left Hearing Abillity Normal Visual Assistive Devices Glasses Teaching Assessment Preferences Verbal,Written Barriers to Learning None Readiness To Learn Excellent Willingness to Engage in Self Management High Activies Readiness to Engage in Self Management High Activities Anxiety Level Calm Cooperation Cooperative Perception Coherent Interest in Health Problem Asks Questions Education Importance Acknowledges Need Does Patient Smoke tobacco or other Yes substances Smoking Status Current every day smoker Is Patient Diabetic No Functional Assessment Recent Decline in Ability to Perform Denies Any Declines Assistive Device With Patient No Culture/Tenriism/Resource Management Specialist Cultural/Tenriism Needs that may affect No Treatment Plan Would you allow our hospital painter rough to No meet you for the purpose of spiritual/ emotional support? Resource Management Specialist to contact place of uatsdin No Teaching: Wound Center *Welcome to the Wound Center -Person Taught Patient -Teaching Method Discussion -Response to teaching Verbalize understanding WC - Nurse 1 - General Ulcer Measurement Start: 01/17/21 09:58 Freq: Status: Active Protocol: Activity Type Activity Date Activity User E-Sign Co-Sign Detail Recorded Client Recorded Date Recorded By Document 01/17/21 09:58 MW [id number] 01/17/21 10:06 MW Document 01/24/21 11:15 KR [id number] 01/24/21 11:16 KR 01/17/21 01/24/21 09:58 11:15 Wound Center Nurse 1 #1 left hip -Combined with other wound No -Current Size (cm) - Length 1.8 4.6 -Current Size (cm) - Width 5.0 1.9 -Current Size (cm) - Depth 2.0 1.8 -Total Square Cm 9.00 8.74 -Date of Last Picture (Recall this 01/17/21 field) -Photo Taken Yes -Epithelialization None Present -Tunneling No -Undermining/Tunneling No -Circular Undermining No -Exudate Amt Large Large -Exudate Type Yellow/Green Yellow/Green -Wound Margin Distinct, Distinct, Outline Outline Attached Attached -Granulation Amt Small (1-33%) Medium (34-66%) -Granulation Quality [place] Red -Slough/Fibrin Yes -Necrosis Amt Large (67-100%) Medium (34-66%) -Necrotic Tissue Type Adherent Slough Adherent Slough -Structure Exposed N/A -Texture (Crystal-wound Skin Appearance) Assessed, Assessed, Localized Edema Scarring -Moisture (Crystal-wound Skin Appearance) No Abnormality, No Abnormality, Assessed Assessed -Color (Crystal-wound Skin Appearance) No Abnormality, No Abnormality, Assessed Assessed -Temperature (Crystal-wound Skin No Abnormality No Abnormality Appearance) (Pt Warm) (Pt Warm) -Tenderness on Palpation (Crystal-wound Yes No Skin Appearance) -Ulcer Cleansing Rinsed/ Rinsed/ Irrigated with Irrigated with Saline Saline -Foul Odor after Cleansing No No -Anesthetic Used 5% Lidocaine 5% Lidocaine Gel Gel Lower Limb Edema Present No WC - Nurse 2 - General Ulcer CM Notes Start: 01/17/21 09:58 Freq: Status: Active Protocol: Activity Type Activity Date Activity User E-Sign Co-Sign Detail Recorded Client Recorded Date Recorded By Document 01/17/21 11:47 PL [id number] 01/17/21 11:48 PL 01/17/21 11:47 Wound Center Nurse 2 -Time 10:32 -Correct Patient Yes -Correct Side, Site, Position Yes -Correct Procedure Yes -Procedure Performed Yes -Type of Procedure Debridement -Clinical Debridement Subcutaneous -Tissue Removed Subcutaneous -Post Debridement (cm) - Length 1.8 -Post Debridement (cm) - Width 5.0 -Post Debridement (cm) - Depth 2.0 -Total Square (Post) (cm) 9.00 -Area of Debridement (cm) - Length 1.8 -Area of Debridement (cm) - Width 5.0 -Total Square (Area) (cm) 9.00 -Tunneling No -Undermining/Tunneling No -Circular Undermining No -Wound/Ulcer Outcome Not Healed -Ulcer Cleansing Rinsed/ Irrigated with Saline -Foul Odor after Cleansing No -Bioengineered Tissue No -Bleeding Controlled with Pressure -Treatment Response Procedure Tolerated Well -Debridement - Subq, 1st 20sq cm Yes Pain Scale: 0-10 Numeric Is Patient Pain Free? Yes WC - Nurse 3 - General Ulcer D/C NN Start: 01/17/21 09:58 Freq: Status: Active Protocol: Activity Type Activity Date Activity User E-Sign Co-Sign Detail Recorded Client Recorded Date Recorded By Document 01/17/21 10:50 MW [id number] 01/17/21 10:51 MW 01/17/21 10:50 Wound Care Nurse 3 #1 left hip -Ulcer Cleansing Rinsed/ Irrigated with Saline -Foul Odor after Cleansing No -Negative Pressure Wound Therapy N/A -Primary Dressing Covered/Secured with Dry Gauze, Secured with Tape -Other Covering abd pad Treatment Response Procedure Tolerated Well Pain Scale: 0-10 Numeric Is Patient Pain Free? Yes Teaching: Wound Center Dressing Your Wound -Person Taught Patient -Teaching Method Discussion, Demonstration -Response to teaching Verbalize understanding WC - Visit Discharge Discharge Condition Stable Ambulatory Status Ambulatory Transportation Private Auto Accompanied by self Medication Reconcilliation completed & No provided to patient/care provider Clinical Summary of Care Provided Yes Wound debrided: Left hip wound Laterality: Left Type of Debridement: Excisional debridement Anesthesia Used: 5% Lidocaine Gel Depth: Down to and including healthy tissue and in the subcutaneous layer Percentage of wound debrided: 100 Instrument Used: 5mm curette Severity: Fat Layer Exposed Amount of bleeding with debridement: Mild Bleeding Controlled with: Compression and gauze Patient tolerated procedure: Patient tolerated procedure well Lab / Micro Data Micro: Microbiology 01/17/21 10:35 Gram Stain - Final Wound Abcess - Hip Wound Culture - Final Escherichia coli Gram positive belem Anaerobic Culture - Final Anaerobic cocci Assessment/Plan Assessment/Plan (1) Surgical wound infection: CODE(S): T81.49XA - Infection following a procedure, other surgical site, initial encounter (2) Surgical wound dehiscence: CODE(S): T81.31XA - Disruption of external operation (surgical) wound, not elsewhere classified, initial encounter (3) Status post left hip replacement: CODE(S): Z96.642 - Presence of left artificial hip joint (4) Obesity (BMI 30-39.9): CODE(S): E66.9 - Obesity, unspecified (5) Hypertension: CODE(S): I10 - Essential (primary) hypertension (6) Hyperlipidemia: CODE(S): E78.5 - Hyperlipidemia, unspecified (7) Tobacco abuse: CODE(S): Z72.0 - Tobacco use (8) Tobacco abuse counseling: CODE(S): Z71.6 - Tobacco abuse counseling (9) Alcohol use disorder, mild, abuse: CODE(S): F10.10 - Alcohol abuse, uncomplicated PLAN: This is a 60-year-old female who presented status post left total hip replacement surgery performed on November 23, 2020. Approximately 2 weeks following her surgery, her surgical incision dehisced, and has been managed by her orthopedic surgeon, Dr. Grey Francois, since that time. Patient has now been referred for additional management. There is concern that the surgical wound may be infected, judging by its appearance and the odor emanating from the wound itself. Swab cultures have been obtained for both aerobic and anaerobic bacterial growth. The results have revealed the presence of an E. coli and gram-positive belem. Patient is being placed on Keflex 500 mg p.o. every 6 hours for 7 days. The antibiotic is tailored to the culture results. The patient has recently completed a prescription for doxycycline orally. The patient is a smoker, and has been counseled as to the hazards of smoking, and how it may adversely affect wound healing. She has been advised to quit. Recent laboratory results have been reviewed, and appear satisfactory. We are to continue the use of 0.25% Dakin's solution moistened gauze, which will be applied topically on a daily basis. The goal is to improve the wound status, and ultimately resort to a modality such as negative pressure wound therapy (NPWT). We are to request preauthorization for the use of negative pressure wound therapy. The patient is to return in 1 week for reassessment. Total time: 29 minutes.
== END 2021-01-25 23:59 ==
LOC: WC 11:00
PROVIDERS: PCP Family Medicine; Referring Provider Specialist; Visit Provider Surgery
DX: T81.31XA Disruption of external operation (surgical) wound, not elsewhere classified, initial encounter (principal); Y79.2 Prosthetic and other implants, materials and accessory orthopedic devices associated with adverse incidents; Z96.642 Presence of left artificial hip joint; E78.5 Hyperlipidemia, unspecified; I10 Essential (primary) hypertension; F10.10 Alcohol abuse, uncomplicated; E66.9 Obesity, unspecified; Z79.899 Other long term (current) drug therapy; F17.200 Nicotine dependence, unspecified, uncomplicated; Z68.38 Body mass index [BMI] 38.0-38.9, adult; T81.41XA Infection following a procedure, superficial incisional surgical site, initial encounter
CPT/HCPCS: 11042; 87070; 87075; 87077; 87186; 87205; 99213; G0463

== ENCOUNTER 2021-02-21 10:00 | Outpatient (RCR) | payer OTHER, SELFPAY ==
[2021-01-26 00:35] VITALS: BP 178/100; PULSE 87; RESP 16; TEMP 36.3
[2021-01-31 10:59] VITALS: BP 201/95; PULSE 75; TEMP 36.5; BMI 38.0
--- NOTE | 2021-01-31 12:46 | HP.PCM_ITS ---
History of Present Illness Date of Service: 01/31/21 Chief Complaint: Infected, dehiscent surgical wound?left hip History of Wound: This is a 60-year-old female who underwent left total hip replacement at [facility] on November 23, 2020. Approximately 2 weeks postoperatively, the patient developed a surgical wound dehiscence. She had been under the care of her orthopedic surgeon, Dr. Grey Francois, who [facility] the [facility] and shravan godoy. Dr. Francois had been managing the patient in the postop period, and felt as though the underlying fascia remained intact. Management included the use of a silver alginate. Patient was treated with a course of oral doxycycline. No recent wound cultures had been obtained. Routine laboratory studies were obtained preoperatively (11/16/20), and no significant abnormalities were noted. The patient is fully ambulatory. She is consuming a protein shake on a daily basis. Referral was for the preparation and implementation of negative pressure wound therapy, if felt to be appropriate. [facility] Medical History (Updated 01/17/21 @ 12:[address] Teddy García MD) Alcohol use disorder, mild, abuse Colon cancer screening Contusion of right eyebrow Hyperlipidemia Hypertension Hypertension Laceration of eyebrow, right Obesity (BMI 30-39.9) Surgical wound dehiscence Surgical wound infection Tobacco abuse Tobacco abuse counseling Home Medications lovastatin 40 mg tablet 40 mg PO DAILY 30 Days #30 09/10/17 [History Last Taken Unknown] cyanocobalamin (vitamin B-12) 1,000 mcg PO DAILY 11/09/20 [History Last Taken Unknown] escitalopram oxalate 5 mg PO DAILY 11/09/20 [History Last Taken Unknown] meloxicam 15 mg PO BID 11/09/20 [History Last Taken Unknown] bisoprolol fumarate 10 mg PO DAILY 01/17/21 [History Last Taken Unknown] Allergy/AdvReac Type Severity Reaction Status Date / Time No Known Allergies Allergy Verified 11/09/20 13:58 Family History (Updated 11/27/17 @ 13:55 by Lounan Hoffman) Father Diabetes Mother Hypertension Surgical History (Updated 01/17/21 @ 12:[address] Teddy García MD) History of removal of cyst History of tonsillectomy History of tubal ligation S/P colonoscopy with polypectomy (~11/18/17) Status post left hip replacement Social History (Updated 11/28/17 @ 06:[address] Nghia Otero MD) Smoking Status: Current every day smoker alcohol intake: never substance use type: does not use Vital Signs Vital Signs Vital Signs: 01/31/21 10:59 Temperature 97.7 F L Temperature Source Temporal Pulse Rate 75 Blood Pressure 201/95 H Blood Pressure Mean 130 Blood Pressure Source Monitor Blood Pressure Position Sitting Blood Pressure Location Left Arm Oxygen Delivery Method Room Air Weight Weight: 250 lb Body Mass Index (BMI) 38.0 Physical Exam Const alert, oriented x3, no apparent distress and well nourished General Appearance: cooperative, comfortable and well developed Orientation / Consciousness: awake, oriented to person, oriented to place and oriented to time HEENT normocephalic and head/scalp atraumatic Head and Scalp: normal to inspection, normocephalic and atraumatic External Ear: external ears normal Eyes PERRL and EOMs intact bilaterally Resp normal respiratory effort, normal air movement, no retractions and no use of accessory muscles Effort and Inspection: able to speak in complete sentences Extremity no calf tenderness General Extremity: Negative for clubbing or cyanosis Skin Wound Narrative: The dehiscent left hip surgical wound is improved. It appears to be smaller. Dimensions are documented elsewhere. The amount of necrotic and nonviable tissue is diminished as compared to last week. There remains a small amount of necrotic tissue, as well as bioburden. Neuro oriented x3 and CN's II-XII intact bilaterally Psych mental status grossly normal Appearance: grossly normal and appropriate Attitude: calm and engaged Activity / Motor Behavior: appropriate eye contact Speech: normal speech Mood & Affect: euthymic mood Thought Process: normal thought process Debridement Note Debridement Note Post-Debridement Measurements and Additional Note: Post-Debridement Measurements/Treatment - Nurse 1 - General Ulcer Assessment Start: 01/31/21 10:59 Freq: Status: Active Protocol: TAMIKO Activity Type Activity Date Activity User E-Sign Co-Sign Detail Recorded Client Recorded Date Recorded By Document 01/31/21 10:59 [id number] 01/31/21 11:10 01/31/21 10:59 - Today's Visit Information Type of service Follow-up Visit (Physician/CLAY PRESS OPERATOR ) Arrival Mode Ambulatory Transfer Assistance None Accompanied by self Patient Identification Verified (Name & Yes ) Patient Requires Transmission-Based No Precautions Safety Precautions NA Height and Weight Body Mass Index (BMI) 38.0 BMI Classification Obese Vital Signs Temperature (97.8 F-99.1 F) 97.7 F L Temperature Source Temporal Pulse Rate (60-100) 75 Pulse Location Monitor Respiratory rate source Observation Oxygen Delivery Method Room Air Blood Pressure (90/60-120/80) 201/95 H Blood Pressure Mean 130 Source Monitor Position Sitting Blood Pressure Location Left Arm History Since Last Visit- (Skip if this is Patient's initial visit) Have you changed medications since your No last visit? Any new allergies or adverse reactions No Had a fall/change in ADL's that may No increase risk of falls Signs or symptoms of abuse and/or No neglect since last visit Have you been in the hospital since your No last visit? Has dressing in place as prescribed Yes Has compression in place as prescribed N/A Has offloadiing in place as prescribed N/A Experienced any changes in pain level or No management Left Footwear Regular Shoe Right Footwear Regular Shoe Pain Scale: 0-10 Numeric Is Patient Pain Free? Yes WC - Nurse 1 - General Ulcer Measurement Start: 01/31/21 10:59 Freq: Status: Active Protocol: Activity Type Activity Date Activity User E-Sign Co-Sign Detail Recorded Client Recorded Date Recorded By Document 01/31/21 10:59 MW [id number] 01/31/21 11:10 MW 01/31/21 10:59 Wound Center Nurse 1 #1 left hip -Combined with other wound No -Current Size (cm) - Length 2.0 -Current Size (cm) - Width 4.2 -Current Size (cm) - Depth 2.3 -Total Square Cm 8.40 -Photo Taken No -Epithelialization None Present -Tunneling No -Undermining/Tunneling No -Circular Undermining No -Exudate Amt Medium -Exudate Type Serosanguineous -Wound Margin Distinct, Outline Attached -Granulation Amt Large (67-100%) -Granulation Quality Red -Slough/Fibrin Yes -Necrosis Amt Small (1-33%) -Necrotic Tissue Type Adherent Slough -Structure Exposed N/A -Texture (Crystal-wound Skin Appearance) Assessed, Scarring -Moisture (Crystal-wound Skin Appearance) No Abnormality, Assessed -Color (Crystal-wound Skin Appearance) No Abnormality, Assessed -Temperature (Crystal-wound Skin No Abnormality Appearance) (Pt Warm) -Tenderness on Palpation (Crystal-wound No Skin Appearance) -Ulcer Cleansing Rinsed/ Irrigated with Saline -Foul Odor after Cleansing No -Anesthetic Used 4% Lidocaine Solution Lower Limb Edema Present No WC - Nurse 3 - General Ulcer D/C NN Start: 01/31/21 10:59 Freq: Status: Active Protocol: Activity Type Activity Date Activity User E-Sign Co-Sign Detail Recorded Client Recorded Date Recorded By Document 01/31/21 11:39 MW [id number] 01/31/21 11:40 MW 01/31/21 11:39 Wound Care Nurse 3 #1 left hip -Ulcer Cleansing Rinsed/ Irrigated with Saline -Foul Odor after Cleansing No -Negative Pressure Wound Therapy N/A -Other Dressing dakins wet to dry -Primary Dressing Covered/Secured with Dry Gauze -Other Covering abd pad Treatment Response Procedure Tolerated Well Pain Scale: 0-10 Numeric Is Patient Pain Free? Yes Teaching: Wound Center Dressing Your Wound -Person Taught Patient -Teaching Method Discussion, Demonstration -Response to teaching Verbalize understanding WC - Visit Discharge Discharge Condition Stable Ambulatory Status Ambulatory Transportation Private Auto Accompanied by self Medication Reconcilliation completed & No provided to patient/care provider Clinical Summary of Care Provided Yes Wound debrided: Dehiscent left hip surgical wound. Laterality: Left Type of Debridement: Excisional debridement Anesthesia Used: 5% Lidocaine Gel Depth: Down to and including healthy tissue and in the subcutaneous layer Percentage of wound debrided: 100 Instrument Used: 5mm curette Tissue Removed: Necrotic tissue and bioburden Severity: Fat Layer Exposed Amount of bleeding with debridement: Mild Bleeding Controlled with: Compression and gauze Patient tolerated procedure: Patient tolerated procedure well Assessment/Plan Assessment/Plan (1) Surgical wound infection: CODE(S): T81.49XA - Infection following a procedure, other surgical site, initial encounter (2) Surgical wound dehiscence: CODE(S): T81.31XA - Disruption of external operation (surgical) wound, not elsewhere classified, initial encounter (3) Status post left hip replacement: CODE(S): Z96.642 - Presence of left artificial hip joint (4) Alcohol use disorder, mild, abuse: CODE(S): F10.10 - Alcohol abuse, uncomplicated (5) Tobacco abuse counseling: CODE(S): Z71.6 - Tobacco abuse counseling (6) Tobacco abuse: CODE(S): Z72.0 - Tobacco use (7) Hyperlipidemia: CODE(S): E78.5 - Hyperlipidemia, unspecified (8) Hypertension: CODE(S): I10 - Essential (primary) hypertension (9) Obesity (BMI 30-39.9): CODE(S): E66.9 - Obesity, unspecified PLAN: This is a 60-year-old female who presented status post left total hip replacement surgery performed on November 23, 2020. Approximately 2 weeks following her surgery, her surgical incision dehisced, and has been managed by her orthopedic surgeon, Dr. Grey Francois, since that time. Patient has now been referred for additional management. There is concern that the surgical wound may be infected, judging by its appearance and the odor emanating from the wound itself. Swab cultures have been obtained for both aerobic and anaerobic b acterial growth. The results have revealed the presence of an E. coli and gram- positive belem. Patient was placed on Keflex 500 mg p.o. every 6 hours for 7 days. The antibiotic is tailored to the culture results. The patient has recently completed a prescription for doxycycline orally. The patient is a smoker, and has been counseled as to the hazards of smoking, and how it may adversely affect wound healing. She has been advised to quit. Recent laboratory results have been reviewed, and appear satisfactory. The patient has encouraged to optimize her nutritional intake, and is using protein shakes on a daily basis. We are to continue the use of 0.25% Dakin's solution moistened gauze, which will be applied topically on a daily basis. The goal is to improve the wound status, and ultimately resort to a modality such as negative pressure wound therapy (NPWT). We are to request preauthorization for the use of negative pressure wound therapy. The patient is to return in 1 week for r eassessment. Total time: 28 minutes.
[2021-02-07 10:50] VITALS: BP 192/89; PULSE 73; RESP 18; TEMP 36.6; BMI 38.0
--- NOTE | 2021-02-07 11:29 | PCM.WC.HP ---
History of Present Illness Date of Service: 02/07/21 Chief Complaint: Infected, dehiscent surgical wound?left hip History of Wound: This is a 60-year-old female who underwent left total hip replacement at [facility] on November 23, 2020. Approximately 2 weeks postoperatively, the patient developed a surgical wound dehiscence. She had been under the care of her orthopedic surgeon, Dr. Grey Francois, who referred the [facility] for further evaluation and management. Dr. Francois had been managing the patient in the postop period, and felt as though the underlying fascia remained intact. Management included the use of a silver alginate. Patient was treated with a course of oral doxycycline. No recent wound cultures had been obtained. Routine laboratory studies were obtained preoperatively (11/16/20), and no significant abnormalities were noted. The patient is fully ambulatory. She is consuming a protein shake on a daily basis. Referral was for the preparation and implementation of negative pressure wound therapy, if felt to be appropriate. [facility] Medical History Alcohol use disorder, mild, abuse Colon cancer screening Contusion of right eyebrow Hyperlipidemia Hypertension Hypertension Laceration of eyebrow, right Obesity (BMI 30-39.9) Surgical wound dehiscence Surgical wound infection Tobacco abuse Tobacco abuse counseling Home Medications lovastatin 40 mg tablet 40 mg PO DAILY 30 Days #30 09/10/17 [History Last Taken Unknown] cyanocobalamin (vitamin B-12) 1,000 mcg PO DAILY 11/09/20 [History Last Taken Unknown] escitalopram oxalate 5 mg PO DAILY 11/09/20 [History Last Taken Unknown] meloxicam 15 mg PO BID 11/09/20 [History Last Taken Unknown] bisoprolol fumarate 10 mg PO DAILY 01/17/21 [History Last Taken Unknown] Allergy/AdvReac Type Severity Reaction Status Date / Time No Known Allergies Allergy Verified 11/09/20 13:58 Family History Father Diabetes Mother Hypertension Surgical History History of removal of cyst History of tonsillectomy History of tubal ligation S/P colonoscopy with polypectomy (~11/18/17) Status post left hip replacement Social History Smoking Status: Current every day smoker alcohol intake: never substance use type: does not use Vital Signs Vital Signs Vital Signs: 02/07/21 10:50 Temperature 97.8 F Temperature Source Temporal Pulse Rate 73 Respiratory Rate 18 Blood Pressure 192/89 H Blood Pressure Mean 123 Blood Pressure Source Monitor Weight Weight: 250 lb Body Mass Index (BMI) 38.0 Physical Exam Const alert, oriented x3, no apparent distress and well nourished General Appearance: cooperative, comfortable and well developed Orientation / Consciousness: awake, oriented to person, oriented to place and oriented to time HEENT normocephalic and head/scalp atraumatic Head and Scalp: normal to inspection, normocephalic and atraumatic External Ear: external ears normal Eyes PERRL and EOMs intact bilaterally General Eye: normal appearance of both eyes Resp normal respiratory effort, normal air movement, no retractions and no use of accessory muscles Effort and Inspection: able to speak in complete sentences Extremity no calf tenderness General Extremity: Negative for clubbing or cyanosis Skin Wound Narrative: The surgical wound dehiscence persists on the patient's left hip. It is smaller in size. It continues to decrease in dimensions, which are documented elsewhere. There is no sign of infection or cellulitis. There is a moderate amount of bioburden. Neuro oriented x3, CN's II-XII intact bilaterally and moves all extremities Speech: speech normal Psych Appearance: grossly normal and appropriate Attitude: calm Activity / Motor Behavior: appropriate eye contact Speech: normal speech Mood & Affect: euthymic mood Thought Process: normal thought process Thought Content: normal thought content Attention / Concentration: attention grossly intact Debridement Note Debridement Note Post-Debridement Measurements and Additional Note: Post-Debridement Measurements/Treatment - Nurse 1 - General Ulcer Assessment Start: 01/31/21 10:59 Freq: Status: Active Protocol: TAMIKO Activity Type Activity Date Activity User E-Sign Co-Sign Detail Recorded Client Recorded Date Recorded By Document 01/31/21 10:59 MW [id number] 01/31/21 11:10 MW Document 02/07/21 10:50 DL [id number] 02/07/21 10:55 DL 01/31/21 02/07/21 10:59 10:50 WC - Today's Visit Information Type of service Follow-up Visit Follow-up Visit (Physician/CORN PRESS OPERATOR (Physician/CORN PRESS OPERATOR ) ) Arrival Mode Ambulatory Ambulatory Transfer Assistance None None Accompanied by self Patient Identification Verified (Name & Yes Yes ) Patient Requires Transmission-Based No No Precautions Safety Precautions NA Height and Weight Body Mass Index (BMI) 38.0 38.0 BMI Classification Obese Obese Vital Signs Temperature (97.8 F-99.1 F) 97.7 F L 97.8 F Temperature Source Temporal Temporal Pulse Rate (60-100) 75 73 Pulse Location Monitor Monitor Respiratory Rate (12-18) 18 Respiratory rate source Observation Observation Oxygen Delivery Method Room Air Blood Pressure (90/60-120/80) 201/95 H 192/89 H Blood Pressure Mean 130 123 Source Monitor Monitor Position Sitting Blood Pressure Location Left Arm History Since Last Visit- (Skip if this is Patient's initial visit) Have you changed medications since your No No last visit? Any new allergies or adverse reactions No No Had a fall/change in ADL's that may No No increase risk of falls Signs or symptoms of abuse and/or No No neglect since last visit Have you been in the hospital since your No No last visit? Has dressing in place as prescribed Yes Yes Has compression in place as prescribed N/A N/A Has offloadiing in place as prescribed N/A Yes Experienced any changes in pain level or No No management Left Footwear Regular Shoe Right Footwear Regular Shoe Pain Scale: 0-10 Numeric Is Patient Pain Free? Yes Yes - Nurse 1 - General Ulcer Measurement Start: 01/31/21 10:59 Freq: Status: Active Protocol: Activity Type Activity Date Activity User E-Sign Co-Sign Detail Recorded Client Recorded Date Recorded By Document 01/31/21 10:59 MW [id number] 01/31/21 11:10 MW Document 02/07/21 10:50 DL [id number] 02/07/21 10:55 DL 01/31/21 02/07/21 10:59 10:50 Wound Center Nurse 1 #1 left hip -Combined with other wound No -Current Size (cm) - Length 2.0 1.3 -Current Size (cm) - Width 4.2 4 -Current Size (cm) - Depth 2.3 1.9 -Total Square Cm 8.40 5.2 -Photo Taken No No -Epithelialization None Present -Tunneling No -Undermining/Tunneling No -Circular Undermining No -Exudate Amt Medium Medium -Exudate Type Serosanguineous Serosanguineous -Wound Margin Distinct, Distinct, Outline Outline Attached Attached -Granulation Amt Large (67-100%) Medium (34-66%) -Granulation Quality Red Red -Slough/Fibrin Yes -Necrosis Amt Small (1-33%) Medium (34-66%) -Necrotic Tissue Type Adherent Slough Adherent Slough -Structure Exposed N/A N/A -Texture (Crystal-wound Skin Appearance) Assessed, Scarring Scarring -Moisture (Crystal-wound Skin Appearance) No Abnormality, No Abnormality Assessed -Color (Crystal-wound Skin Appearance) No Abnormality, Rubor Assessed -Temperature (Crystal-wound Skin No Abnormality No Abnormality Appearance) (Pt Warm) (Pt Warm) -Tenderness on Palpation (Crystal-wound No No Skin Appearance) -Ulcer Cleansing Rinsed/ Wound Cleanser Irrigated with Saline -Foul Odor after Cleansing No No -Anesthetic Used 4% Lidocaine 4% Lidocaine Solution Solution Lower Limb Edema Present No WC - Nurse 2 - General Ulcer CM Notes Start: 01/31/21 10:59 Freq: Status: Active Protocol: Activity Type Activity Date Activity User E-Sign Co-Sign Detail Recorded Client Recorded Date Recorded By Document 01/31/21 12:59 PL [id number] 01/31/21 13:00 PL 01/31/21 12:59 Wound Center Nurse 2 -Time 11:20 -Correct Patient Yes -Correct Side, Site, Position Yes -Correct Procedure Yes -Procedure Performed Yes -Type of Procedure Debridement -Clinical Debridement Subcutaneous -Tissue Removed Subcutaneous -Post Debridement (cm) - Length 2.0 -Post Debridement (cm) - Width 4.2 -Post Debridement (cm) - Depth 2.3 -Total Square (Post) (cm) 8.40 -Area of Debridement (cm) - Length 2.0 -Area of Debridement (cm) - Width 4.2 -Total Square (Area) (cm) 8.40 -Tunneling No -Undermining/Tunneling No -Circular Undermining No -Wound/Ulcer Outcome Not Healed -Ulcer Cleansing Rinsed/ Irrigated with Saline -Foul Odor after Cleansing No -Bioengineered Tissue No -Debridement - Subq, 1st 20sq cm Yes Pain Scale: 0-10 Numeric Is Patient Pain Free? Yes WC - Nurse 3 - General Ulcer D/C NN Start: 01/31/21 10:59 Freq: Status: Active Protocol: Activity Type Activity Date Activity User E-Sign Co-Sign Detail Recorded Client Recorded Date Recorded By Document 01/31/21 11:39 MW [id number] 01/31/21 11:40 MW 01/31/21 11:39 Wound Care Nurse 3 #1 left hip -Ulcer Cleansing Rinsed/ Irrigated with Saline -Foul Odor after Cleansing No -Negative Pressure Wound Therapy N/A -Other Dressing dakins wet to dry -Primary Dressing Covered/Secured with Dry Gauze -Other Covering abd pad Treatment Response Procedure Tolerated Well Pain Scale: 0-10 Numeric Is Patient Pain Free? Yes Teaching: Wound Center Dressing Your Wound -Person Taught Patient -Teaching Method Discussion, Demonstration -Response to teaching Verbalize understanding WC - Visit Discharge Discharge Condition Stable Ambulatory Status Ambulatory Transportation Private Auto Accompanied by self Medication Reconcilliation completed & No provided to patient/care provider Clinical Summary of Care Provided Yes Wound debrided: Left hip wound-surgical dehiscence Laterality: Left Type of Debridement: Excisional debridement Anesthesia Used: 5% Lidocaine Gel Depth: Down to and including healthy tissue and in the subcutaneous layer Percentage of wound debrided: 100 Instrument Used: 5mm curette Severity: Fat Layer Exposed Amount of bleeding with debridement: Mild Bleeding Controlled with: Compression and gauze Patient tolerated procedure: Patient tolerated procedure well Assessment/Plan Assessment/Plan (1) Surgical wound infection: CODE(S): T81.49XA - Infection following a procedure, other surgical site, initial encounter (2) Surgical wound dehiscence: CODE(S): T81.31XA - Disruption of external operation (surgical) wound, not elsewhere classified, initial encounter (3) Status post left hip replacement: CODE(S): Z96.642 - Presence of left artificial hip joint (4) Alcohol use disorder, mild, abuse: CODE(S): F10.10 - Alcohol abuse, uncomplicated (5) Tobacco abuse counseling: CODE(S): Z71.6 - Tobacco abuse counseling (6) Tobacco abuse: CODE(S): Z72.0 - Tobacco use (7) Hyperlipidemia: CODE(S): E78.5 - Hyperlipidemia, unspecified (8) Hypertension: CODE(S): I10 - Essential (primary) hypertension (9) Obesity (BMI 30-39.9): CODE(S): E66.9 - Obesity, unspecified PLAN: This is a 60-year-old female who presented status post left total hip replacement surgery performed on November 23, 2020. Approximately 2 weeks following her surgery, her surgical incision dehisced, and has been managed by her orthopedic surgeon, Dr. Grey Francois, since that time. Patient has now been referred for additional management. There is concern that the surgical wound may be infected, judging by its appearance and the odor emanating from the wound itself. Swab cultures have been obtained for both aerobic and anaerobic bacterial growth. The results have revealed the presence of an E. coli and gram-positive belem. Patient was placed on Keflex 500 mg p.o. every 6 hours for 7 days. The antibiotic is tailored to the culture results, and is nearly complete. The patient has recently completed a prescription for doxycycline orally. The patient is a smoker, and has been counseled as to the hazards of smoking, and how it may adversely affect wound healing. She has been advised to quit. Recent laboratory results have been reviewed, and appear satisfactory. The patient has encouraged to optimize her nutritional intake, and is using protein shakes on a daily basis. We are to continue the use of 0.25% Dakin's solution moistened gauze, which will be applied topically on a daily basis. The goal is to improve the wound status, and ultimately resort to a modality such as negative pressure wound therapy (NPWT). At present, there are some financial issues regarding the implementation of negative pressure wound therapy. We are to temporize until these issues have been resolved. The patient is to return in 1 week for reassessment. Total time: 29 minutes.
[2021-02-14 10:00] VITALS: BP 163/89; PULSE 80; TEMP 36.3; BMI 38.0
--- NOTE | 2021-02-14 10:31 | PCM.WC.HP ---
History of Present Illness Date of Service: 02/14/21 Chief Complaint: Infected, dehiscent surgical wound?left hip History of Wound: This is a 60-year-old female who underwent left total hip replacement at [facility] on November 23, 2020. Approximately 2 weeks postoperatively, the patient developed a surgical wound dehiscence. She had been under the care of her orthopedic surgeon, Dr. Grey Francois, who [facility] for [facility] evaluation and management. Dr. Francois had been managing the patient in the postop period, and felt as though the underlying fascia remained intact. Management included the use of a silver alginate. Patient was treated with a course of oral doxycycline. No recent wound cultures had been obtained. Routine laboratory studies were obtained preoperatively (11/16/20), and no significant abnormalities were noted. The patient is fully ambulatory. She is consuming a protein shake on a daily basis. Referral was for the preparation and implementation of negative pressure wound therapy, if felt to be appropriate. FOR[facility]LY [facility], LATER [facility] Medical History Alcohol use disorder, mild, abuse Colon cancer screening Contusion of right eyebrow Hyperlipidemia Hypertension Hypertension Laceration of eyebrow, right Obesity (BMI 30-39.9) Surgical wound dehiscence Surgical wound infection Tobacco abuse Tobacco abuse counseling Home Medications lovastatin 40 mg tablet 40 mg PO DAILY 30 Days #30 09/10/17 [History Last Taken Unknown] cyanocobalamin (vitamin B-12) 1,000 mcg PO DAILY 11/09/20 [History Last Taken Unknown] escitalopram oxalate 5 mg PO DAILY 11/09/20 [History Last Taken Unknown] meloxicam 15 mg PO BID 11/09/20 [History Last Taken Unknown] bisoprolol fumarate 10 mg PO DAILY 01/17/21 [History Last Taken Unknown] Allergy/AdvReac Type Severity Reaction Status Date / Time No Known Allergies Allergy Verified 11/09/20 13:58 Family History Father Diabetes Mother Hypertension Surgical History History of removal of cyst History of tonsillectomy History of tubal ligation S/P colonoscopy with polypectomy (~11/18/17) Status post left hip replacement Social History Smoking Status: Current every day smoker alcohol intake: never substance use type: does not use Vital Signs Vital Signs Vital Signs: 02/14/21 10:00 Temperature 97.3 F L Temperature Source Temporal Pulse Rate 80 Blood Pressure 163/89 H Blood Pressure Mean 113 Blood Pressure Source Monitor Blood Pressure Position Semi-Fowlers Blood Pressure Location Right Arm Weight Weight: 250 lb Body Mass Index (BMI) 38.0 Physical Exam Const alert, oriented x3, no apparent distress and well nourished General Appearance: cooperative, comfortable and well developed Orientation / Consciousness: awake, oriented to person, oriented to place and oriented to time HEENT normocephalic and head/scalp atraumatic Head and Scalp: normal to inspection, normocephalic and atraumatic External Ear: external ears normal Eyes PERRL and EOMs intact bilaterally General Eye: normal appearance of both eyes Resp normal respiratory effort, normal air movement, no retractions and no use of accessory muscles Effort and Inspection: able to speak in complete sentences Extremity no clubbing, cyanosis or edema and no calf tenderness General Extremity: Negative for clubbing or cyanosis Skin Wound Narrative: The dehiscent surgical wound on the left hip persists. It continues to diminish in size. Dimensions are documented elsewhere. There is no obvious sign of infection or cellulitis. There is a moderate amount of bioburden. The base of the wound appears generally pink and healthy in appearance, with active granulation tissue. Neuro oriented x3, CN's II-XII intact bilaterally, moves all extremities, no focal motor deficits and no sensory deficits noted Sensorium / Orientation: awake, alert, oriented to person, oriented to place and oriented to time Speech: speech normal Psych Appearance: grossly normal and appropriate Attitude: calm Activity / Motor Behavior: appropriate eye contact Speech: normal speech Mood & Affect: euthymic mood Thought Process: normal thought process Thought Content: normal thought content Attention / Concentration: attention grossly intact Debridement Note Debridement Note Post-Debridement Measurements and Additional Note: Post-Debridement Measurements/Treatment [id number] - Nurse 1 - General Ulcer Assessment Start: 01/31/21 10:59 Freq: Status: Active Protocol: TAMIKO Activity Type Activity Date Activity User E-Sign Co-Sign Detail Recorded Client Recorded Date Recorded By Document 01/31/21 10:59 MW [id number] 01/31/21 11:10 MW Document 02/07/21 10:50 DL [id number] 02/07/21 10:55 DL Document 02/14/21 10:00 KR [id number] 02/14/21 10:02 KR 01/31/21 02/07/21 02/14/21 10:59 10:50 10:00 WC - Today's Visit Information Type of service Follow-up Visit Follow-up Visit Follow-up Visit (Physician/WORKERS' COMPENSATION MEDIATOR (Physician/WORKERS' COMPENSATION MEDIATOR (Physician/WORKERS' COMPENSATION MEDIATOR ) ) ) Arrival Mode Ambulatory Ambulatory Ambulatory Transfer Assistance None None Accompanied by self Patient Identification Verified (Name & Yes Yes Yes ) Patient Requires Transmission-Based No No Precautions Safety Precautions NA Height and Weight Body Mass Index (BMI) 38.0 38.0 38.0 BMI Classification Obese Obese Obese Vital Signs Temperature (97.8 F-99.1 F) 97.7 F L 97.8 F 97.3 F L Temperature Source Temporal Temporal Temporal Pulse Rate (60-100) 75 73 80 Pulse Location Monitor Monitor Monitor Respiratory Rate (12-18) 18 Respiratory rate source Observation Observation Oxygen Delivery Method Room Air Blood Pressure (90/60-120/80) 201/95 H 192/89 H 163/89 H Blood Pressure Mean 130 123 113 Source Monitor Monitor Monitor Position Sitting Semi-Fowlers Blood Pressure Location Left Arm Right Arm History Since Last Visit- (Skip if this is Patient's initial visit) Have you changed medications since your No No No last visit? Any new allergies or adverse reactions No No Had a fall/change in ADL's that may No No increase risk of falls Signs or symptoms of abuse and/or No No neglect since last visit Have you been in the hospital since your No No last visit? Has dressing in place as prescribed Yes Yes Has compression in place as prescribed N/A N/A Has offloadiing in place as prescribed N/A Yes Experienced any changes in pain level or No No management Left Footwear Regular Shoe Right Footwear Regular Shoe Pain Scale: 0-10 Numeric Is Patient Pain Free? Yes Yes - Nurse 1 - General Ulcer Measurement Start: 01/31/21 10:59 Freq: Status: Active Protocol: Activity Type Activity Date Activity User E-Sign Co-Sign Detail Recorded Client Recorded Date Recorded By Document 01/31/21 10:59 MW [id number] 01/31/21 11:10 MW Document 02/07/21 10:50 DL [id number] 02/07/21 10:55 DL Document 02/14/21 10:00 KR [id number] 02/14/21 10:02 KR 01/31/21 02/07/21 02/14/21 10:59 10:50 10:00 Wound Center Nurse 1 #1 left hip -Combined with other wound No -Current Size (cm) - Length 2.0 1.3 1.9 -Current Size (cm) - Width 4.2 4 4 -Current Size (cm) - Depth 2.3 1.9 1.6 -Total Square Cm 8.40 5.2 7.6 -Photo Taken No No -Epithelialization None Present -Tunneling No -Undermining/Tunneling No -Circular Undermining No -Exudate Amt Medium Medium Medium -Exudate Type Serosanguineous Serosanguineous Serosanguineous -Wound Margin Distinct, Distinct, Distinct, Outline Outline Outline Attached Attached Attached -Granulation Amt Large (67-100%) Medium (34-66%) Large (67-100%) -Granulation Quality Red Red Red -Slough/Fibrin Yes -Necrosis Amt Small (1-33%) Medium (34-66%) Small (1-33%) -Necrotic Tissue Type Adherent Slough Adherent Slough Adherent Slough -Structure Exposed N/A N/A -Texture (Crystal-wound Skin Appearance) Assessed, Scarring Assessed, Scarring Scarring -Moisture (Crystal-wound Skin Appearance) No Abnormality, No Abnormality No Abnormality, Assessed Assessed -Color (Crystal-wound Skin Appearance) No Abnormality, Rubor No Abnormality, Assessed Assessed -Temperature (Crystal-wound Skin No Abnormality No Abnormality No Abnormality Appearance) (Pt Warm) (Pt Warm) (Pt Warm) -Tenderness on Palpation (Crystal-wound No No No Skin Appearance) -Ulcer Cleansing Rinsed/ Wound Cleanser Rinsed/ Irrigated with Irrigated with Saline Saline -Foul Odor after Cleansing No No No -Anesthetic Used 4% Lidocaine 4% Lidocaine 5% Lidocaine Solution Solution Gel Lower Limb Edema Present No WC - Nurse 2 - General Ulcer CM Notes Start: 01/31/21 10:59 Freq: Status: Active Protocol: Activity Type Activity Date Activity User E-Sign Co-Sign Detail Recorded Client Recorded Date Recorded By Document 01/31/21 12:59 PL [id number] 01/31/21 13:00 PL Document 02/07/21 14:26 PL [id number] 02/07/21 14:28 PL 01/31/21 02/07/21 12:59 14:26 Wound Center Nurse 2 #1 left hip -Time 11:20 11:24 -Correct Patient Yes Yes -Correct Side, Site, Position Yes Yes -Correct Procedure Yes Yes -Procedure Performed Yes Yes -Type of Procedure Debridement Debridement -Clinical Debridement Subcutaneous Subcutaneous -Tissue Removed Subcutaneous Subcutaneous -Post Debridement (cm) - Length 2.0 1.3 -Post Debridement (cm) - Width 4.2 4.0 -Post Debridement (cm) - Depth 2.3 1.9 -Total Square (Post) (cm) 8.40 5.20 -Area of Debridement (cm) - Length 2.0 1.3 -Area of Debridement (cm) - Width 4.2 4.0 -Total Square (Area) (cm) 8.40 5.20 -Tunneling No No -Undermining/Tunneling No No -Circular Undermining No No -Wound/Ulcer Outcome Not Healed Not Healed -Ulcer Cleansing Rinsed/ Rinsed/ Irrigated with Irrigated with Saline Saline -Foul Odor after Cleansing No No -Bioengineered Tissue No No -Debridement - Subq, 1st 20sq cm Yes Yes Pain Scale: 0-10 Numeric Is Patient Pain Free? Yes - Nurse 3 - General Ulcer D/C NN Start: 01/31/21 10:59 Freq: Status: Active Protocol: Activity Type Activity Date Activity User E-Sign Co-Sign Detail Recorded Client Recorded Date Recorded By Document 01/31/21 11:39 MW [id number] 01/31/21 11:40 MW Document 02/07/21 14:26 PL [id number] 02/07/21 14:28 PL 01/31/21 02/07/21 11:39 14:26 Wound Care Nurse 3 #1 left hip -Ulcer Cleansing Rinsed/ Rinsed/ Irrigated with Irrigated with Saline Saline -Foul Odor after Cleansing No No -Negative Pressure Wound Therapy N/A -Other Dressing dakins wet to Dakins dry Moistened Gauze -Primary Dressing Covered/Secured with Dry Gauze Dry Gauze, Secured with Tape -Other Covering abd pad Treatment Response Procedure Tolerated Well Pain Scale: 0-10 Numeric Is Patient Pain Free? Yes Teaching: Wound Center Dressing Your Wound -Person Taught Patient -Teaching Method Discussion, Demonstration -Response to teaching Verbalize understanding WC - Visit Discharge Discharge Condition Stable Stable Ambulatory Status Ambulatory Ambulatory Transportation Private Auto Private Auto Accompanied by self Medication Reconcilliation completed & No provided to patient/care provider Clinical Summary of Care Provided Yes Yes Wound debrided: Dehiscent surgical left hip wound Laterality: Left Type of Debridement: Excisional debridement Anesthesia Used: 5% Lidocaine Gel Depth: Down to and including healthy tissue and in the subcutaneous layer Percentage of wound debrided: 100 Instrument Used: 5mm curette Tissue Removed: Bioburden Severity: Fat Layer Exposed Amount of bleeding with debridement: Mild Bleeding Controlled with: Compression and gauze Patient tolerated procedure: Patient tolerated procedure well Assessment/Plan Assessment/Plan (1) Surgical wound infection: CODE(S): T81.49XA - Infection following a procedure, other surgical site, initial encounter (2) Surgical wound dehiscence: CODE(S): T81.31XA - Disruption of external operation (surgical) wound, not elsewhere classified, initial encounter QUALIFIERS: Encounter type: subsequent encounter Qualified Code(s): T81.31XD - Disruption of external operation (surgical) wound, not elsewhere classified, subsequent encounter (3) Status post left hip replacement: CODE(S): Z96.642 - Presence of left artificial hip joint (4) Alcohol use disorder, mild, abuse: CODE(S): F10.10 - Alcohol abuse, uncomplicated (5) Tobacco abuse counseling: CODE(S): Z71.6 - Tobacco abuse counseling (6) Tobacco abuse: CODE(S): Z72.0 - Tobacco use (7) Hyperlipidemia: CODE(S): E78.5 - Hyperlipidemia, unspecified (8) Hypertension: CODE(S): I10 - Essential (primary) hypertension (9) Obesity (BMI 30-39.9): CODE(S): E66.9 - Obesity, unspecified PLAN: This is a 60-year-old female who presented status post left total hip replacement surgery performed on November 23, 2020. Approximately 2 weeks following her surgery, her surgical incision dehisced, and has been managed by her orthopedic surgeon, Dr. Grey Francois, since that time. Patient has been referred for additional management. There was concern that the surgical wound may be infected, judging by its appearance and the odor emanating from the wound itself at the patient's initial visit. Swab cultures were obtained for both aerobic and anaerobic bacterial growth. The results revealed the presence of an E. coli and gram-positive belem. Patient was placed on Keflex 500 mg p.o. every 6 hours for 7 days. The antibiotic is tailored to the culture results, which has been completed. The patient is a smoker, and has been counseled as to the hazards of smoking, and how it may adversely affect wound healing. She has been advised to quit. Recent laboratory results have been reviewed, and appear satisfactory. The patient has encouraged to optimize her nutritional intake, and is using protein shakes on a daily basis. We are to continue the use of 0.25% Dakin's solution moistened gauze, which will be applied topically on a daily basis. The goal had been to improve the wound status, and ultimately resort to a modality such as negative pressure wound therapy (NPWT). At present, there are some financial issues regarding the implementation of negative pressure wound therapy. Therefore, the plan to proceed to negative pressure wound therapy has been abandoned, for the time being. We are to continue with the use of 0.25% Dakin's solution-moistened gauze on a daily basis. The patient is to return in 1 week for reassessment. Total time: 28 minutes.
[2021-02-21 09:57] VITALS: BP 167/78; TEMP 35.8; BMI 38.0
--- NOTE | 2021-02-21 12:06 | PCM.WC.HP ---
History of Present Illness Date of Service: 02/21/21 Chief Complaint: Infected, dehiscent surgical wound?left hip History of Wound: This is a 60-year-old female who underwent left total hip replacement at [facility] on November 23, 2020. Approximately 2 weeks postoperatively, the patient developed a surgical wound dehiscence. She had been under the care of her orthopedic surgeon, Dr. Grey Francois, who [facility] for [facility] evaluation and management. Dr. Francois had been managing the patient in the postop period, and felt as though the underlying fascia remained intact. Management included the use of a silver alginate. Patient was treated with a course of oral doxycycline. No recent wound cultures had been obtained. Routine laboratory studies were obtained preoperatively (11/16/20), and no significant abnormalities were noted. The patient is fully ambulatory. She is consuming a protein shake on a daily basis. Referral was for the preparation and implementation of negative pressure wound therapy, if felt to be appropriate. [facility] Medical History Alcohol use disorder, mild, abuse Colon cancer screening Contusion of right eyebrow Hyperlipidemia Hypertension Hypertension Laceration of eyebrow, right Obesity (BMI 30-39.9) Surgical wound dehiscence Surgical wound infection Tobacco abuse Tobacco abuse counseling Home Medications lovastatin 40 mg tablet 40 mg PO DAILY 30 Days #30 09/10/17 [History Last Taken Unknown] cyanocobalamin (vitamin B-12) 1,000 mcg PO DAILY 11/09/20 [History Last Taken Unknown] escitalopram oxalate 5 mg PO DAILY 11/09/20 [History Last Taken Unknown] meloxicam 15 mg PO BID 11/09/20 [History Last Taken Unknown] bisoprolol fumarate 10 mg PO DAILY 01/17/21 [History Last Taken Unknown] Allergy/AdvReac Type Severity Reaction Status Date / Time No Known Allergies Allergy Verified 11/09/20 13:58 Family History Father Diabetes Mother Hypertension Surgical History History of removal of cyst History of tonsillectomy History of tubal ligation S/P colonoscopy with polypectomy (~11/18/17) Status post left hip replacement Social History Smoking Status: Current every day smoker alcohol intake: never substance use type: does not use Vital Signs Vital Signs Vital Signs: 02/21/21 09:57 Temperature 96.5 F L Temperature Source Temporal Blood Pressure 167/78 H Blood Pressure Mean 107 Blood Pressure Source Monitor Blood Pressure Position Sitting Blood Pressure Location Left Arm Weight Weight: 250 lb Body Mass Index (BMI) 38.0 Physical Exam Const alert, oriented x3, no apparent distress and well nourished General Appearance: cooperative, comfortable, well kempt and well developed Orientation / Consciousness: awake, oriented to person, oriented to place and oriented to time Nutritional Appearance: obese HEENT normocephalic and head/scalp atraumatic Head and Scalp: normal to inspection, normocephalic and atraumatic External Ear: external ears normal Eyes PERRL and EOMs intact bilaterally General Eye: normal appearance of both eyes Resp normal respiratory effort, normal air movement, no retractions and no use of accessory muscles Effort and Inspection: able to speak in complete sentences Extremity no clubbing, cyanosis or edema and no calf tenderness General Extremity: Negative for clubbing or cyanosis Skin Wound Narrative: The dehiscent surgical wound on the left hip persists. It continues to decrease in size, particularly in terms of depth. It is generally pink and healthy in appearance. There is a moderate amount of bioburden. There is no frankly necrotic or gangrenous tissue present. There is no sign of infection or cellulitis. Dimensions are documented elsewhere. Slight periwound erythema is noted, and suspected to be due to Dakin's solution from the moistened wound packing itself. Neuro oriented x3, CN's II-XII intact bilaterally and moves all extremities Sensorium / Orientation: awake, alert, oriented to person, oriented to place and oriented to time Speech: speech normal Psych Appearance: grossly normal and appropriate Attitude: calm Activity / Motor Behavior: appropriate eye contact Speech: normal speech Mood & Affect: euthymic mood Thought Process: normal thought process Thought Content: normal thought content Attention / Concentration: attention grossly intact Debridement Note Debridement Note Post-Debridement Measurements and Additional Note: Post-Debridement Measurements/Treatment [id number] - Nurse 1 - General Ulcer Assessment Start: 01/31/21 10:59 Freq: Status: Active Protocol: GERARDOT Activity Type Activity Date Activity User E-Sign Co-Sign Detail Recorded Client Recorded Date Recorded By Document 01/31/21 10:59 MW [id number] 01/31/21 11:10 MW Document 02/07/21 10:50 DL [id number] 02/07/21 10:55 DL Document 02/14/21 10:00 KR [id number] 02/14/21 10:02 KR Document 02/21/21 09:57 KR [id number] 02/21/21 10:05 KR 01/31/21 02/07/21 02/14/21 10:59 10:50 10:00 WC - Today's Visit Information Type of service Follow-up Visit Follow-up Visit Follow-up Visit (Physician/CAMERA SYSTEMS ENGINEER (Physician/CAMERA SYSTEMS ENGINEER (Physician/CAMERA SYSTEMS ENGINEER ) ) ) Arrival Mode Ambulatory Ambulatory Ambulatory Transfer Assistance None None Accompanied by self Patient Identification Verified (Name & Yes Yes Yes ) Patient Requires Transmission-Based No No Precautions Safety Precautions NA Height and Weight Body Mass Index (BMI) 38.0 38.0 38.0 BMI Classification Obese Obese Obese Vital Signs Temperature (97.8 F-99.1 F) 97.7 F L 97.8 F 97.3 F L Temperature Source Temporal Temporal Temporal Pulse Rate (60-100) 75 73 80 Pulse Location Monitor Monitor Monitor Respiratory Rate (12-18) 18 Respiratory rate source Observation Observation Oxygen Delivery Method Room Air Blood Pressure (90/60-120/80) 201/95 H 192/89 H 163/89 H Blood Pressure Mean 130 123 113 Source Monitor Monitor Monitor Position Sitting Semi-Fowlers Blood Pressure Location Left Arm Right Arm History Since Last Visit- (Skip if this is Patient's initial visit) Have you changed medications since your No No No last visit? Any new allergies or adverse reactions No No Had a fall/change in ADL's that may No No increase risk of falls Signs or symptoms of abuse and/or No No neglect since last visit Have you been in the hospital since your No No last visit? Has dressing in place as prescribed Yes Yes Has compression in place as prescribed N/A N/A Has offloadiing in place as prescribed N/A Yes Experienced any changes in pain level or No No management Left Footwear Regular Shoe Right Footwear Regular Shoe Pain Scale: 0-10 Numeric Is Patient Pain Free? Yes Yes 02/21/21 09:57 - Today's Visit Information Type of service Follow-up Visit (Physician/CAMERA SYSTEMS ENGINEER ) Arrival Mode Ambulatory Transfer Assistance Accompanied by Patient Identification Verified (Name & Yes ) Patient Requires Transmission-Based Precautions Safety Precautions Height and Weight Body Mass Index (BMI) 38.0 BMI Classification Obese Vital Signs Temperature (97.8 F-99.1 F) 96.5 F L Temperature Source Temporal Pulse Rate (60-100) Pulse Location Monitor Respiratory Rate (12-18) Respiratory rate source Oxygen Delivery Method Blood Pressure (90/60-120/80) 167/78 H Blood Pressure Mean 107 Source Monitor Position Sitting Blood Pressure Location Left Arm History Since Last Visit- (Skip if this is Patient's initial visit) Have you changed medications since your No last visit? Any new allergies or adverse reactions No Had a fall/change in ADL's that may No increase risk of falls Signs or symptoms of abuse and/or No neglect since last visit Have you been in the hospital since your No last visit? Has dressing in place as prescribed Yes Has compression in place as prescribed N/A Has offloadiing in place as prescribed N/A Experienced any changes in pain level or No management Left Footwear Regular Shoe Right Footwear Regular Shoe Pain Scale: 0-10 Numeric Is Patient Pain Free? Yes - Nurse 1 - General Ulcer Measurement Start: 01/31/21 10:59 Freq: Status: Active Protocol: Activity Type Activity Date Activity User E-Sign Co-Sign Detail Recorded Client Recorded Date Recorded By Document 01/31/21 10:59 MW [id number] 01/31/21 11:10 MW Document 02/07/21 10:50 DL [id number] 02/07/21 10:55 DL Document 02/14/21 10:00 KR [id number] 02/14/21 10:02 KR Document 02/21/21 09:57 KR [id number] 02/21/21 10:05 KR 01/31/21 02/07/21 02/14/21 10:59 10:50 10:00 Wound Center Nurse 1 #1 left hip -Combined with other wound No -Current Size (cm) - Length 2.0 1.3 1.9 -Current Size (cm) - Width 4.2 4 4 -Current Size (cm) - Depth 2.3 1.9 1.6 -Total Square Cm 8.40 5.2 7.6 -Photo Taken No No -Epithelialization None Present -Tunneling No -Undermining/Tunneling No -Circular Undermining No -Exudate Amt Medium Medium Medium -Exudate Type Serosanguineous Serosanguineous Serosanguineous -Wound Margin Distinct, Distinct, Distinct, Outline Outline Outline Attached Attached Attached -Granulation Amt Large (67-100%) Medium (34-66%) Large (67-100%) -Granulation Quality Red Red Red -Slough/Fibrin Yes -Necrosis Amt Small (1-33%) Medium (34-66%) Small (1-33%) -Necrotic Tissue Type Adherent Slough Adherent Slough Adherent Slough -Structure Exposed N/A N/A -Texture (Crystal-wound Skin Appearance) Assessed, Scarring Assessed, Scarring Scarring -Moisture (Crystal-wound Skin Appearance) No Abnormality, No Abnormality No Abnormality, Assessed Assessed -Color (Crystal-wound Skin Appearance) No Abnormality, Rubor No Abnormality, Assessed Assessed -Temperature (Crystal-wound Skin No Abnormality No Abnormality No Abnormality Appearance) (Pt Warm) (Pt Warm) (Pt Warm) -Tenderness on Palpation (Crystal-wound No No No Skin Appearance) -Ulcer Cleansing Rinsed/ Wound Cleanser Rinsed/ Irrigated with Irrigated with Saline Saline -Foul Odor after Cleansing No No No -Anesthetic Used 4% Lidocaine 4% Lidocaine 5% Lidocaine Solution Solution Gel Lower Limb Edema Present No 02/21/21 09:57 Wound Center Nurse 1 #1 left hip -Combined with other wound -Current Size (cm) - Length 2 -Current Size (cm) - Width 4 -Current Size (cm) - Depth 1.6 -Total Square Cm 8 -Photo Taken -Epithelialization -Tunneling -Undermining/Tunneling -Circular Undermining -Exudate Amt Medium -Exudate Type Yellow/Green -Wound Margin Distinct, Outline Attached -Granulation Amt Medium (34-66%) -Granulation Quality Red -Slough/Fibrin -Necrosis Amt Small (1-33%) -Necrotic Tissue Type Adherent Slough -Structure Exposed -Texture (Crystal-wound Skin Appearance) Assessed, Scarring -Moisture (Crystal-wound Skin Appearance) No Abnormality, Assessed -Color (Crystal-wound Skin Appearance) No Abnormality, Assessed -Temperature (Crystal-wound Skin No Abnormality Appearance) (Pt Warm) -Tenderness on Palpation (Crystal-wound No Skin Appearance) -Ulcer Cleansing Rinsed/ Irrigated with Saline -Foul Odor after Cleansing No -Anesthetic Used 5% Lidocaine Gel Lower Limb Edema Present - Nurse 2 - General Ulcer CM Notes Start: 01/31/21 10:59 Freq: Status: Active Protocol: Activity Type Activity Date Activity User E-Sign Co-Sign Detail Recorded Client Recorded Date Recorded By Document 01/31/21 12:59 PL [id number] 01/31/21 13:00 PL Document 02/07/21 14:26 PL [id number] 02/07/21 14:28 PL Document 02/14/21 13:34 PL [id number] 02/14/21 13:35 PL 01/31/21 02/07/21 02/14/21 12:59 14:26 13:34 Wound Center Nurse 2 #1 left hip -Time 11:20 11:24 10:22 -Correct Patient Yes Yes Yes -Correct Side, Site, Position Yes Yes Yes -Correct Procedure Yes Yes Yes -Procedure Performed Yes Yes Yes -Type of Procedure Debridement Debridement Debridement -Clinical Debridement Subcutaneous Subcutaneous Subcutaneous -Tissue Removed Subcutaneous Subcutaneous Subcutaneous -Post Debridement (cm) - Length 2.0 1.3 1.9 -Post Debridement (cm) - Width 4.2 4.0 4.0 -Post Debridement (cm) - Depth 2.3 1.9 0.6 -Total Square (Post) (cm) 8.40 5.20 7.60 -Area of Debridement (cm) - Length 2.0 1.3 1.9 -Area of Debridement (cm) - Width 4.2 4.0 4.0 -Total Square (Area) (cm) 8.40 5.20 7.60 -Tunneling No No No -Undermining/Tunneling No No No -Circular Undermining No No No -Wound/Ulcer Outcome Not Healed Not Healed Not Healed -Ulcer Cleansing Rinsed/ Rinsed/ Rinsed/ Irrigated with Irrigated with Irrigated with Saline Saline Saline -Foul Odor after Cleansing No No No -Bioengineered Tissue No No No -Bleeding Controlled with Pressure -Treatment Response Procedure Tolerated Well -Debridement - Subq, 1st 20sq cm Yes Yes Yes Pain Scale: 0-10 Numeric Is Patient Pain Free? Yes Yes - Nurse 3 - General Ulcer D/C NN Start: 01/31/21 10:59 Freq: Status: Active Protocol: Activity Type Activity Date Activity User E-Sign Co-Sign Detail Recorded Client Recorded Date Recorded By Document 01/31/21 11:39 MW [id number] 01/31/21 11:40 MW Document 02/07/21 14:26 PL [id number] 02/07/21 14:28 PL Document 02/14/21 10:45 BM [id number] 02/14/21 10:45 BM 01/31/21 02/07/21 02/14/21 11:39 14:26 10:45 Wound Care Nurse 3 #1 left hip -Ulcer Cleansing Rinsed/ Rinsed/ Rinsed/ Irrigated with Irrigated with Irrigated with Saline Saline Saline -Foul Odor after Cleansing No No No -Negative Pressure Wound Therapy N/A -Primary Dressing Applied Other -Other Dressing dakins wet to Dakins dakins dry Moistened Gauze -Primary Dressing Covered/Secured with Dry Gauze Dry Gauze, Secured with Secured with Tape,Other Tape -Other Covering abd pad abd Treatment Response Procedure Procedure Tolerated Well Tolerated Well Pain Scale: 0-10 Numeric Is Patient Pain Free? Yes Yes Teaching: Wound Center Dressing Your Wound -Person Taught Patient -Teaching Method Discussion, Demonstration -Response to teaching Verbalize understanding WC - Visit Discharge Discharge Condition Stable Stable Stable Ambulatory Status Ambulatory Ambulatory Ambulatory Transportation Private Auto Private Auto Private Auto Accompanied by self Medication Reconcilliation completed & No provided to patient/care provider Clinical Summary of Care Provided Yes Yes Wound debrided: Left hip Laterality: Left Type of Debridement: Excisional debridement Anesthesia Used: 5% Lidocaine Gel Depth: Down to and including healthy tissue and in the subcutaneous layer Percentage of wound debrided: 100 Instrument Used: 5mm curette Tissue Removed: Bioburden Severity: Fat Layer Exposed Amount of bleeding with debridement: Mild Bleeding Controlled with: Compression and gauze Patient tolerated procedure: Patient tolerated procedure well Assessment/Plan Assessment/Plan (1) Surgical wound infection: CODE(S): T81.49XA - Infection following a procedure, other surgical site, initial encounter (2) Surgical wound dehiscence: CODE(S): T81.31XA - Disruption of external operation (surgical) wound, not elsewhere classified, initial encounter QUALIFIERS: Encounter type: subsequent encounter Qualified Code(s): T81.31XD - Disruption of external operation (surgical) wound, not elsewhere classified, subsequent encounter (3) Status post left hip replacement: CODE(S): Z96.642 - Presence of left artificial hip joint (4) Alcohol use disorder, mild, abuse: CODE(S): F10.10 - Alcohol abuse, uncomplicated (5) Tobacco abuse counseling: CODE(S): Z71.6 - Tobacco abuse counseling (6) Tobacco abuse: CODE(S): Z72.0 - Tobacco use (7) Hyperlipidemia: CODE(S): E78.5 - Hyperlipidemia, unspecified (8) Hypertension: CODE(S): I10 - Essential (primary) hypertension (9) Obesity (BMI 30-39.9): CODE(S): E66.9 - Obesity, unspecified PLAN: This is a 60-year-old female who presented status post left total hip replacement surgery performed on November 23, 2020. Approximately 2 weeks following her surgery, her surgical incision dehisced, and had been managed by her orthopedic surgeon, Dr. Grey Francois, since that time. Patient has been referred for additional management. There was concern that the surgical wound may be infected, judging by its appearance and the odor emanating from the wound itself at the patient's initial visit. Swab cultures were obtained for both aerobic and anaerobic bacterial growth. The results revealed the presence of an E. coli and gram-positive belem. Patient was placed on Keflex 500 mg p.o. every 6 hours for 7 days. The antibiotic is tailored to the culture results, which has been completed. The patient is a smoker, and has been counseled as to the hazards of smoking, and how it may adversely affect wound healing. She has been advised to quit. Recent laboratory results have been reviewed, and appear satisfactory. The patient has encouraged to optimize her nutritional intake, and is using protein shakes on a daily basis. We are to continue the use of 0.25% Dakin's solution moistened gauze, which will be applied topically on a daily basis. The goal had been to improve the wound status, and ultimately resort to a modality such as negative pressure wound therapy (NPWT). At present, there are some financial issues regarding the implementation of negative pressure wound therapy. Therefore, the plan to proceed to negative pressure wound therapy has been abandoned, for the time being. We are to continue with the use of 0.25% Dakin's solution-moistened gauze on a daily basis. Some mild erythema about the patient's wound is thought to be secondary to Dakin's solution and its caustic effect on the skin. We have discussed the means by which this can be avoided, minimizing the amount of Dakin's solution used to moisten the gauze prior to packing. The patient is to return in 1 week for reassessment. Total time: 29 minutes.
== END 2021-02-25 23:59 ==
LOC: WC 10:00
PROVIDERS: PCP Family Medicine; Referring Provider Specialist; Visit Provider Surgery
DX: T81.31XA Disruption of external operation (surgical) wound, not elsewhere classified, initial encounter (principal); Z96.642 Presence of left artificial hip joint; I10 Essential (primary) hypertension; E78.5 Hyperlipidemia, unspecified; F10.10 Alcohol abuse, uncomplicated; Z79.899 Other long term (current) drug therapy; F17.200 Nicotine dependence, unspecified, uncomplicated; T81.49XA Infection following a procedure, other surgical site, initial encounter; E66.9 Obesity, unspecified; Y79.2 Prosthetic and other implants, materials and accessory orthopedic devices associated with adverse incidents; Z68.38 Body mass index [BMI] 38.0-38.9, adult
CPT/HCPCS: 11042

== ENCOUNTER 2021-03-28 10:15 | Outpatient (RCR) | payer OTHER, SELFPAY ==
[2021-02-26 00:34] VITALS: BP 167/78; PULSE 80; RESP 18; TEMP 35.8
[2021-02-28 10:16] VITALS: PULSE 67; TEMP 35.8; BMI 38.0
--- NOTE | 2021-02-28 10:33 | HP.PCM_ITS ---
History of Present Illness Date of Service: 02/28/21 Chief Complaint: Infected, dehiscent surgical wound?left hip History of Wound: This is a 60-year-old female who underwent left total hip replacement at [facility] on November 23, 2020. Approximately 2 weeks postoperatively, the patient developed a surgical wound dehiscence. She had been under the care of her orthopedic surgeon, Dr. Grey Francois, who [facility] the [facility] and shravan godoy. Dr. Francois had been managing the patient in the postop period, and felt as though the underlying fascia remained intact. Management included the use of a silver alginate. Patient was treated with a course of oral doxycycline. No recent wound cultures had been obtained. Routine laboratory studies were obtained preoperatively (11/16/20), and no significant abnormalities were noted. The patient is fully ambulatory. She is consuming a protein shake on a daily basis. Referral was for the preparation and implementation of negative pressure wound therapy, if felt to be appropriate. FOR[facility]LY [facility], [facility] Medical History Alcohol use disorder, mild, abuse Colon cancer screening Contusion of right eyebrow Hyperlipidemia Hypertension Hypertension Laceration of eyebrow, right Obesity (BMI 30-39.9) Surgical wound dehiscence Surgical wound infection Tobacco abuse Tobacco abuse counseling Home Medications lovastatin 40 mg tablet 40 mg PO DAILY 30 Days #30 09/10/17 [History Last Taken Unknown] cyanocobalamin (vitamin B-12) 1,000 mcg PO DAILY 11/09/20 [History Last Taken Unknown] escitalopram oxalate 5 mg PO DAILY 11/09/20 [History Last Taken Unknown] meloxicam 15 mg PO BID 11/09/20 [History Last Taken Unknown] bisoprolol fumarate 10 mg PO DAILY 01/17/21 [History Last Taken Unknown] Allergy/AdvReac Type Severity Reaction Status Date / Time No Known Allergies Allergy Verified 11/09/20 13:58 Family History Father Diabetes Mother Hypertension Surgical History History of removal of cyst History of tonsillectomy History of tubal ligation S/P colonoscopy with polypectomy (~11/18/17) Status post left hip replacement Social History Smoking Status: Current every day smoker alcohol intake: never substance use type: does not use Vital Signs Vital Signs Vital Signs: 02/28/21 10:16 Temperature 96.5 F L Temperature Source Temporal Pulse Rate 67 Weight Weight: 250 lb Body Mass Index (BMI) 38.0 Physical Exam Const alert, oriented x3, no apparent distress and well nourished General Appearance: cooperative and well developed Orientation / Consciousness: awake, oriented to person, oriented to place and oriented to time HEENT normocephalic and head/scalp atraumatic Head and Scalp: normal to inspection, normocephalic and atraumatic External Ear: external ears normal Eyes PERRL and EOMs intact bilaterally General Eye: normal appearance of both eyes Resp normal respiratory effort, normal air movement, no retractions and no use of accessory muscles Effort and Inspection: able to speak in complete sentences Extremity no calf tenderness General Extremity: normal exam except as noted; Negative for clubbing or cyanosis Skin Wound Narrative: The wound of the left hip persists. It appears smaller in size. Dimensions are documented elsewhere. There is a moderate amount of bioburden. There is no sign of infection or cellulitis. The periwound skin remains slightly erythematous. Neuro oriented x3, CN's II-XII intact bilaterally and moves all extremities Sensorium / Orientation: awake, alert, oriented to person, oriented to place and oriented to time Psych Appearance: grossly normal and appropriate Attitude: calm Activity / Motor Behavior: appropriate eye contact Speech: normal speech Mood & Affect: euthymic mood Thought Process: normal thought process Thought Content: normal thought content Attention / Concentration: attention grossly intact Debridement Note Debridement Note Post-Debridement Measurements and Additional Note: Post-Debridement Measurements/Treatment - Nurse 1 - General Ulcer Assessment Start: 02/28/21 10:15 Freq: Status: Active Protocol: TAMIKO Activity Type Activity Date Activity User E-Sign Co-Sign Detail Recorded Client Recorded Date Recorded By Document 02/28/21 10:16 ELIE [id number] 02/28/21 10:17 ELIE 02/28/21 10:16 - Today's Visit Information Type of service Follow-up Visit (Physician/LOCAL TRUCK DRIVER ) Arrival Mode Ambulatory Patient Identification Verified (Name & Yes ) Height and Weight Body Mass Index (BMI) 38.0 BMI Classification Obese Vital Signs Temperature (97.8 F-99.1 F) 96.5 F L Temperature Source Temporal Pulse Rate (60-100) 67 Pulse Location Monitor History Since Last Visit- (Skip if this is Patient's initial visit) Have you changed medications since your No last visit? Any new allergies or adverse reactions No Had a fall/change in ADL's that may No increase risk of falls Signs or symptoms of abuse and/or No neglect since last visit Have you been in the hospital since your No last visit? Has dressing in place as prescribed Yes Has compression in place as prescribed N/A Has offloadiing in place as prescribed N/A Experienced any changes in pain level or No management Left Footwear Regular Shoe Right Footwear Regular Shoe Pain Scale: 0-10 Numeric Is Patient Pain Free? Yes WC - Nurse 1 - General Ulcer Measurement Start: 02/28/21 10:15 Freq: Status: Active Protocol: Activity Type Activity Date Activity User E-Sign Co-Sign Detail Recorded Client Recorded Date Recorded By Document 02/28/21 10:16 ELIE [id number] 02/28/21 10:17 ELIE 02/28/21 10:16 Wound Center Nurse 1 #1 left hip -Current Size (cm) - Length 1.9 -Current Size (cm) - Width 3.8 -Current Size (cm) - Depth 1.5 -Total Square Cm 7.22 -Exudate Amt Large -Exudate Type Serosanguineous -Wound Margin Distinct, Outline Attached -Granulation Amt Medium (34-66%) -Granulation Quality Red -Necrosis Amt Small (1-33%) -Necrotic Tissue Type Adherent Slough -Texture (Crystal-wound Skin Appearance) Assessed, Scarring -Moisture (Crystal-wound Skin Appearance) Assessed, Maceration -Color (Crystal-wound Skin Appearance) No Abnormality, Assessed -Temperature (Crystal-wound Skin No Abnormality Appearance) (Pt Warm) -Tenderness on Palpation (Crystal-wound No Skin Appearance) -Ulcer Cleansing Rinsed/ Irrigated with Saline -Foul Odor after Cleansing No -Anesthetic Used 5% Lidocaine Gel Wound debrided: Left hip Laterality: Left Type of Debridement: Excisional debridement Anesthesia Used: 5% Lidocaine Gel Depth: Down to and including healthy tissue and in the subcutaneous layer Percentage of wound debrided: 100 Instrument Used: 5mm curette Tissue Removed: Bioburden Severity: Fat Layer Exposed Amount of bleeding with debridement: Mild Bleeding Controlled with: Compression and gauze Patient tolerated procedure: Patient tolerated procedure well Assessment/Plan Assessment/Plan (1) Surgical wound infection: CODE(S): T81.49XA - Infection following a procedure, other surgical site, initial encounter (2) Surgical wound dehiscence: CODE(S): T81.31XA - Disruption of external operation (surgical) wound, not elsewhere classified, initial encounter QUALIFIERS: Encounter type: subsequent encounter Qualified Code(s): T81.31XD - Disruption of external operation (surgical) wound, not elsewhere classified, subsequent encounter (3) Status post left hip replacement: CODE(S): Z96.642 - Presence of left artificial hip joint (4) Alcohol use disorder, mild, abuse: CODE(S): F10.10 - Alcohol abuse, uncomplicated (5) Tobacco abuse counseling: CODE(S): Z71.6 - Tobacco abuse counseling (6) Tobacco abuse: CODE(S): Z72.0 - Tobacco use (7) Hyperlipidemia: CODE(S): E78.5 - Hyperlipidemia, unspecified (8) Hypertension: CODE(S): I10 - Essential (primary) hypertension (9) Obesity (BMI 30-39.9): CODE(S): E66.9 - Obesity, unspecified PLAN: This is a 60-year-old female who presented status post left total hip replacement surgery performed on November 23, 2020. Approximately 2 weeks following her surgery, her surgical incision dehisced, and had been managed by her orthopedic surgeon, Dr. Grey Francois, since that time. Patient has been referred for additional management. There was concern that the surgical wound may be infected, judging by its appearance and the odor emanating from the wound itself at the patient's initial visit. Swab cultures were obtained for both aerobic and anaerobic bacterial growth. The results revealed the presence of an E. coli and gram-positive belem. Patient was placed on Keflex 500 mg p.o. every 6 hours for 7 days. The antibiotic is tailored to the culture results, which has been completed. The patient is a smoker, and has been counseled as to the hazards of smoking, and how it may adversely affect wound healing. She has been advised to quit. Recent laboratory results have been reviewed, and appear satisfactory. The patient has encouraged to optimize her nutritional intake, and is using protein shakes on a daily basis. We are to continue the use of 0.25% Dakin's solution moistened gauze, which will be applied topically on a daily basis. The goal had been to improve the wound status, and ultimately resort to a modality such as negative pressure wound therapy (NPWT). At present, there are some financial issues regarding the implementation of negative pressure wound therapy. Therefore, the plan to proceed to negative pressure wound therapy has been abandoned, for the time being. We are to continue with the use of 0.25% Dakin's solution-moistened gauze on a daily basis. Some mild erythema about the patient's wound persists. This may be, in fact, related to the gauze and tape which the patient is using to cover the wound. We are to make some changes, including the use of silicone tape. The status of the periwound skin will be reassessed at the patient's follow-up visit in 1 week. Total time: 28 minutes.
[2021-03-07 09:51] VITALS: BP 194/94; PULSE 75; RESP 18; TEMP 36.4; BMI 38.0
--- NOTE | 2021-03-07 13:33 | PCM.WC.HP ---
History of Present Illness Date of Service: 03/07/21 Chief Complaint: Infected, dehiscent surgical wound?left hip History of Wound: This is a 60-year-old female who underwent left total hip replacement at [facility] on November 23, 2020. Approximately 2 weeks postoperatively, the patient developed a surgical wound dehiscence. She had been under the care of her orthopedic surgeon, Dr. Grey Francois, who referred the [facility] for further evaluation and management. Dr. Francois had been managing the patient in the postop period, and felt as though the underlying fascia remained intact. Management included the use of a silver alginate. Patient was treated with a course of oral doxycycline. No recent wound cultures had been obtained. Routine laboratory studies were obtained preoperatively (11/16/20), and no significant abnormalities were noted. The patient is fully ambulatory. She is consuming a protein shake on a daily basis. Referral was for the preparation and implementation of negative pressure wound therapy, if felt to be appropriate. [facility] Medical History Alcohol use disorder, mild, abuse Colon cancer screening Contusion of right eyebrow Hyperlipidemia Hypertension Hypertension Laceration of eyebrow, right Obesity (BMI 30-39.9) Surgical wound dehiscence Surgical wound infection Tobacco abuse Tobacco abuse counseling Home Medications lovastatin 40 mg tablet 40 mg PO DAILY 30 Days #30 09/10/17 [History Last Taken Unknown] cyanocobalamin (vitamin B-12) 1,000 mcg PO DAILY 11/09/20 [History Last Taken Unknown] escitalopram oxalate 5 mg PO DAILY 11/09/20 [History Last Taken Unknown] meloxicam 15 mg PO BID 11/09/20 [History Last Taken Unknown] bisoprolol fumarate 10 mg PO DAILY 01/17/21 [History Last Taken Unknown] Allergy/AdvReac Type Severity Reaction Status Date / Time No Known Allergies Allergy Verified 11/09/20 13:58 Family History Father Diabetes Mother Hypertension Surgical History History of removal of cyst History of tonsillectomy History of tubal ligation S/P colonoscopy with polypectomy (~11/18/17) Status post left hip replacement Social History Smoking Status: Current every day smoker alcohol intake: never substance use type: does not use Vital Signs Vital Signs Vital Signs: 03/07/21 09:51 Temperature 97.5 F L Temperature Source Temporal Pulse Rate 75 Respiratory Rate 18 Blood Pressure 194/94 H Blood Pressure Mean 127 Blood Pressure Source Monitor Blood Pressure Position Sitting Blood Pressure Location Left Arm Oxygen Delivery Method Room Air Weight Weight: 250 lb Body Mass Index (BMI) 38.0 Physical Exam Const alert, oriented x3, no apparent distress and well nourished General Appearance: cooperative, comfortable and well developed Orientation / Consciousness: awake, oriented to person, oriented to place and oriented to time Exam Limitations: no limitations HEENT normocephalic and head/scalp atraumatic Head and Scalp: normal to inspection, normocephalic and atraumatic External Ear: external ears normal Eyes PERRL and EOMs intact bilaterally General Eye: normal appearance of both eyes Resp normal respiratory effort, normal air movement, no retractions and no use of accessory muscles Effort and Inspection: able to speak in complete sentences Extremity no calf tenderness General Extremity: Negative for clubbing or cyanosis Skin Wound Narrative: The surgical dehiscence wound on the left hip appears slightly smaller in size. Dimensions are documented elsewhere. There is no sign of infection or cellulitis. There is a mild amount of bioburden. The periwound erythema appears to be diminished. Neuro oriented x3, CN's II-XII intact bilaterally and moves all extremities Sensorium / Orientation: awake, alert, oriented to person, oriented to place and oriented to time Speech: speech normal Psych Appearance: grossly normal and appropriate Attitude: calm Activity / Motor Behavior: appropriate eye contact Speech: normal speech Mood & Affect: euthymic mood Thought Process: normal thought process Thought Content: normal thought content Attention / Concentration: attention grossly intact Debridement Note Debridement Note Post-Debridement Measurements and Additional Note: Post-Debridement Measurements/Treatment WC - Nurse 1 - General Ulcer Assessment Start: 02/28/21 10:15 Freq: Status: Active Protocol: ASHLYN.JACKY Activity Type Activity Date Activity User E-Sign Co-Sign Detail Recorded Client Recorded Date Recorded By Document 02/28/21 10:16 ELIE [id number] 02/28/21 10:17 KR Document 03/07/21 09:51 MW [id number] 03/07/21 09:59 MW 02/28/21 03/07/21 10:16 09:51 - Today's Visit Information Type of service Follow-up Visit Follow-up Visit (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 ) ) Arrival Mode Ambulatory Ambulatory Transfer Assistance None Accompanied by self Patient Identification Verified (Name & Yes Yes ) Patient Requires Transmission-Based No Precautions Safety Precautions NA Height and Weight Body Mass Index (BMI) 38.0 38.0 BMI Classification Obese Obese Vital Signs Temperature (97.8 F-99.1 F) 96.5 F L 97.5 F L Temperature Source Temporal Temporal Pulse Rate (60-100) 67 75 Pulse Location Monitor Monitor Respiratory Rate (12-18) 18 Respiratory rate source Observation Oxygen Delivery Method Room Air Blood Pressure (90/60-120/80) 194/94 H Blood Pressure Mean 127 Source Monitor Position Sitting Blood Pressure Location Left Arm History Since Last Visit- (Skip if this is Patient's initial visit) Have you changed medications since your No No last visit? Any new allergies or adverse reactions No No Had a fall/change in ADL's that may No No increase risk of falls Signs or symptoms of abuse and/or No No neglect since last visit Have you been in the hospital since your No No last visit? Has dressing in place as prescribed Yes Yes Has compression in place as prescribed N/A N/A Has offloadiing in place as prescribed N/A N/A Experienced any changes in pain level or No No management Left Footwear Regular Shoe Regular Shoe Right Footwear Regular Shoe Regular Shoe Pain Scale: 0-10 Numeric Is Patient Pain Free? Yes Yes - Nurse 1 - General Ulcer Measurement Start: 02/28/21 10:15 Freq: Status: Active Protocol: Activity Type Activity Date Activity User E-Sign Co-Sign Detail Recorded Client Recorded Date Recorded By Document 02/28/21 10:16 KR [id number] 02/28/21 10:17 KR Document 03/07/21 09:51 MW [id number] 03/07/21 09:59 MW 02/28/21 03/07/21 10:16 09:51 Wound Center Nurse 1 #1 left hip -Combined with other wound No -Current Size (cm) - Length 1.9 1.8 -Current Size (cm) - Width 3.8 3.7 -Current Size (cm) - Depth 1.5 1.5 -Total Square Cm 7.22 6.66 -Photo Taken No -Epithelialization Small 1-33% -Tunneling No -Undermining/Tunneling No -Circular Undermining No -Exudate Amt Large Medium -Exudate Type Serosanguineous Serosanguineous -Wound Margin Distinct, Flat & Intact Outline Attached -Granulation Amt Medium (34-66%) Large (67-100%) -Granulation Quality Red Red -Slough/Fibrin Yes -Necrosis Amt Small (1-33%) None Present (0 %) -Necrotic Tissue Type Adherent Slough Adherent Slough -Structure Exposed N/A -Texture (Crystal-wound Skin Appearance) Assessed, Assessed, Scarring Scarring -Moisture (Crystal-wound Skin Appearance) Assessed, No Abnormality, Maceration Assessed,Dry/ Scaly -Color (Crystal-wound Skin Appearance) No Abnormality, Assessed, Assessed Erythema -Temperature (Crystal-wound Skin No Abnormality No Abnormality Appearance) (Pt Warm) (Pt Warm) -Tenderness on Palpation (Crystal-wound No No Skin Appearance) -Ulcer Cleansing Rinsed/ Rinsed/ Irrigated with Irrigated with Saline Saline -Foul Odor after Cleansing No No -Anesthetic Used 5% Lidocaine 4% Lidocaine Gel Solution Lower Limb Edema Present No - Nurse 2 - General Ulcer CM Notes Start: 02/28/21 10:15 Freq: Status: Active Protocol: Activity Type Activity Date Activity User E-Sign Co-Sign Detail Recorded Client Recorded Date Recorded By Document 02/28/21 12:22 [id number] 02/28/21 12:24 Document 03/07/21 12:59 [id number] 03/07/21 13:00 PL 02/28/21 03/07/21 12:22 12:59 Wound Center Nurse 2 #1 left hip -Time 10:28 10:25 -Correct Patient Yes Yes -Correct Side, Site, Position Yes Yes -Correct Procedure Yes Yes -Procedure Performed Yes Yes -Type of Procedure Debridement Debridement -Clinical Debridement Subcutaneous Subcutaneous -Tissue Removed Subcutaneous Subcutaneous -Post Debridement (cm) - Length 1.9 1.8 -Post Debridement (cm) - Width 3.8 3.7 -Post Debridement (cm) - Depth 1.5 1.5 -Total Square (Post) (cm) 7.22 6.66 -Area of Debridement (cm) - Length 1.9 1.8 -Area of Debridement (cm) - Width 3.8 3.7 -Total Square (Area) (cm) 7.22 6.66 -Tunneling No No -Undermining/Tunneling No No -Circular Undermining No No -Wound/Ulcer Outcome Not Healed Not Healed -Ulcer Cleansing Rinsed/ Rinsed/ Irrigated with Irrigated with Saline Saline -Foul Odor after Cleansing No No -Bioengineered Tissue No No -Debridement - Subq, 1st 20sq cm Yes Yes WC - Nurse 3 - General Ulcer D/C NN Start: 02/28/21 10:15 Freq: Status: Active Protocol: Activity Type Activity Date Activity User E-Sign Co-Sign Detail Recorded Client Recorded Date Recorded By Document 02/28/21 12:22 PL [id number] 02/28/21 12:24 PL Document 03/07/21 10:27 MW [id number] 03/07/21 10:28 MW 02/28/21 03/07/21 12:22 10:27 Pain Scale: 0-10 Numeric Is Patient Pain Free? Yes Wound Care Nurse 3 #1 left hip -Ulcer Cleansing Rinsed/ Irrigated with Saline -Foul Odor after Cleansing No -Negative Pressure Wound Therapy N/A -Other Dressing Dakins dakins wet to dry -Primary Dressing Covered/Secured with Dry Gauze, Dry Gauze, Secured with Secured with Tape Tape Treatment Response Procedure Tolerated Well Teaching: Wound Center Dressing Your Wound -Person Taught Patient -Teaching Method Discussion, Demonstration -Response to teaching Verbalize understanding WC - Visit Discharge Discharge Condition Stable Stable Ambulatory Status Ambulatory Cane Transportation Private Auto Private Auto Accompanied by self Medication Reconcilliation completed & No provided to patient/care provider Clinical Summary of Care Provided Yes Yes Wound debrided: Left hip Laterality: Left Type of Debridement: Excisional debridement Anesthesia Used: 5% Lidocaine Gel Depth: Down to and including healthy tissue and in the subcutaneous layer Percentage of wound debrided: 100 Instrument Used: 5mm curette Tissue Removed: Bioburden Severity: Fat Layer Exposed Amount of bleeding with debridement: Mild Bleeding Controlled with: Compression and gauze Patient tolerated procedure: Patient tolerated procedure well Assessment/Plan Assessment/Plan (1) Surgical wound dehiscence: CODE(S): T81.31XA - Disruption of external operation (surgical) wound, not elsewhere classified, initial encounter QUALIFIERS: Encounter type: subsequent encounter Qualified Code(s): T81.31XD - Disruption of external operation (surgical) wound, not elsewhere classified, subsequent encounter (2) Surgical wound infection: CODE(S): T81.49XA - Infection following a procedure, other surgical site, initial encounter (3) Status post left hip replacement: CODE(S): Z96.642 - Presence of left artificial hip joint (4) Alcohol use disorder, mild, abuse: CODE(S): F10.10 - Alcohol abuse, uncomplicated (5) Tobacco abuse counseling: CODE(S): Z71.6 - Tobacco abuse counseling (6) Tobacco abuse: CODE(S): Z72.0 - Tobacco use (7) Hyperlipidemia: CODE(S): E78.5 - Hyperlipidemia, unspecified (8) Hypertension: CODE(S): I10 - Essential (primary) hypertension (9) Obesity (BMI 30-39.9): CODE(S): E66.9 - Obesity, unspecified PLAN: This is a 60-year-old female who presented status post left total hip replacement surgery performed on November 23, 2020. Approximately 2 weeks following her surgery, her surgical incision dehisced, and had been managed by her orthopedic surgeon, Dr. Grey Francois, since that time. Patient has been referred for additional management. There was concern that the surgical wound may be infected, judging by its appearance and the odor emanating from the wound itself at the patient's initial visit. Swab cultures were obtained for both aerobic and anaerobic bacterial growth. The results revealed the presence of an E. coli and gram-positive belem. Patient was placed on Keflex 500 mg p.o. every 6 hours for 7 days. The antibiotic was tailored to the culture results, and has been completed. The patient is a smoker, and has been counseled as to the hazards of smoking, and how it may adversely affect wound healing. She has been advised to quit. Recent laboratory results have been reviewed, and appear satisfactory. The patient has encouraged to optimize her nutritional intake, and is using protein shakes on a daily basis. We are to continue the use of 0.25% Dakin's solution moistened gauze, which will be applied topically on a daily basis. The goal had been to improve the wound status, and ultimately resort to a modality such as negative pressure wound therapy (NPWT). At present, there are some financial issues regarding the implementation of negative pressure wound therapy. Therefore, the plan to proceed to negative pressure wound therapy has been abandoned, for the time being. We are to continue with the use of 0.25% Dakin's solution-moistened gauze on a daily basis. Some mild erythema about the patient's wound persists. This is suspected to be related to the gauze and tape which the patient is using to cover the wound. We have made some changes, including the use of silicone tape, which has resulted in improvement. The status of the periwound skin will be reassessed at the patient's follow-up visit in 1 week. Total time: 29 minutes.
[2021-03-14 10:14] VITALS: TEMP 36.2; BMI 38.0
--- NOTE | 2021-03-14 10:45 | PCM.WC.HP ---
History of Present Illness Date of Service: 03/14/21 Chief Complaint: Infected, dehiscent surgical wound?left hip History of Wound: This is a 60-year-old female who underwent left total hip replacement at [facility] on November 23, 2020. Approximately 2 weeks postoperatively, the patient developed a surgical wound dehiscence. She had been under the care of her orthopedic surgeon, Dr. Grey Francois, who [facility] evaluation and management. Dr. Francois had been managing the patient in the postop period, and felt as though the underlying fascia remained intact. Management included the use of a silver alginate. Patient was treated with a course of oral doxycycline. No recent wound cultures had been obtained. Routine laboratory studies were obtained preoperatively (11/16/20), and no significant abnormalities were noted. The patient is fully ambulatory. She is consuming a protein shake on a daily basis. Referral was for the preparation and implementation of negative pressure wound therapy, if felt to be appropriate. [facility] Medical History Alcohol use disorder, mild, abuse Colon cancer screening Contusion of right eyebrow Hyperlipidemia Hypertension Hypertension Laceration of eyebrow, right Obesity (BMI 30-39.9) Surgical wound dehiscence Surgical wound infection Tobacco abuse Tobacco abuse counseling Home Medications lovastatin 40 mg tablet 40 mg PO DAILY 30 Days #30 09/10/17 [History Last Taken Unknown] cyanocobalamin (vitamin B-12) 1,000 mcg PO DAILY 11/09/20 [History Last Taken Unknown] escitalopram oxalate 5 mg PO DAILY 11/09/20 [History Last Taken Unknown] meloxicam 15 mg PO BID 11/09/20 [History Last Taken Unknown] bisoprolol fumarate 10 mg PO DAILY 01/17/21 [History Last Taken Unknown] Allergy/AdvReac Type Severity Reaction Status Date / Time No Known Allergies Allergy Verified 11/09/20 13:58 Family History Father Diabetes Mother Hypertension Surgical History History of removal of cyst History of tonsillectomy History of tubal ligation S/P colonoscopy with polypectomy (~11/18/17) Status post left hip replacement Social History Smoking Status: Current every day smoker alcohol intake: never substance use type: does not use Vital Signs Vital Signs Vital Signs: 03/14/21 10:14 Temperature 97.2 F L Temperature Source Temporal Weight Weight: 250 lb Body Mass Index (BMI) 38.0 Physical Exam Const alert, oriented x3, no apparent distress and well nourished General Appearance: cooperative, comfortable and well developed Orientation / Consciousness: awake, oriented to person, oriented to place and oriented to time HEENT normocephalic and head/scalp atraumatic Head and Scalp: normal to inspection, normocephalic and atraumatic External Ear: external ears normal Eyes PERRL and EOMs intact bilaterally General Eye: normal appearance of both eyes Resp normal respiratory effort, normal air movement, no retractions and no use of accessory muscles Effort and Inspection: able to speak in complete sentences Extremity no calf tenderness General Extremity: Negative for clubbing or cyanosis Skin Wound Narrative: The patient's left hip surgical dehiscence wound persists. It continues to decrease in size. The dehiscent wound is pink and healthy in appearance, with active granulation tissue. Dimensions are documented elsewhere. There is no sign of infection or cellulitis. However, there is periwound erythema which appears to conform to the size and shape of a 4 x 4 gauze pad. The erythema appears to be inflammatory rather than cellulitic. Neuro oriented x3, CN's II-XII intact bilaterally and moves all extremities Sensorium / Orientation: awake, alert, oriented to person, oriented to place and oriented to time Psych Appearance: grossly normal and appropriate Attitude: calm Activity / Motor Behavior: appropriate eye contact Speech: normal speech Mood & Affect: euthymic mood Thought Process: normal thought process Thought Content: normal thought content Attention / Concentration: attention grossly intact Debridement Note Debridement Note Post-Debridement Measurements and Additional Note: Post-Debridement Measurements/Treatment WC - Nurse 1 - General Ulcer Assessment Start: 02/28/21 10:15 Freq: Status: Active Protocol: ASHLYN.LOWEXMeredith Activity Type Activity Date Activity User E-Sign Co-Sign Detail Recorded Client Recorded Date Recorded By Document 02/28/21 10:16 KR [id number] 02/28/21 10:17 KR Document 03/07/21 09:51 MW [id number] 03/07/21 09:59 MW Document 03/14/21 10:14 AK [id number] 03/14/21 10:24 AK 02/28/21 03/07/21 03/14/21 10:16 09:51 10:14 WC - Today's Visit Information Type of service Follow-up Visit Follow-up Visit Follow-up Visit (Physician/ASSISTANT BASEBALL COACH (Physician/ASSISTANT BASEBALL COACH (Physician/ASSISTANT BASEBALL COACH ) ) ) Arrival Mode Ambulatory Ambulatory Ambulatory Transfer Assistance None Accompanied by self Patient Identification Verified (Name & Yes Yes Yes ) Patient Requires Transmission-Based No No Precautions Safety Precautions NA Height and Weight Body Mass Index (BMI) 38.0 38.0 38.0 BMI Classification Obese Obese Obese Vital Signs Temperature (97.8 F-99.1 F) 96.5 F L 97.5 F L 97.2 F L Temperature Source Temporal Temporal Temporal Pulse Rate (60-100) 67 75 Pulse Location Monitor Monitor Respiratory Rate (12-18) 18 Respiratory rate source Observation Oxygen Delivery Method Room Air Blood Pressure (90/60-120/80) 194/94 H Blood Pressure Mean 127 Source Monitor Position Sitting Blood Pressure Location Left Arm History Since Last Visit- (Skip if this is Patient's initial visit) Have you changed medications since your No No No last visit? Any new allergies or adverse reactions No No No Had a fall/change in ADL's that may No No No increase risk of falls Signs or symptoms of abuse and/or No No No neglect since last visit Have you been in the hospital since your No No No last visit? Has dressing in place as prescribed Yes Yes Yes Has compression in place as prescribed N/A N/A N/A Has offloadiing in place as prescribed N/A N/A N/A Experienced any changes in pain level or No No management Left Footwear Regular Shoe Regular Shoe Regular Shoe Right Footwear Regular Shoe Regular Shoe Regular Shoe Pain Scale: 0-10 Numeric Is Patient Pain Free? Yes Yes - Nurse 1 - General Ulcer Measurement Start: 02/28/21 10:15 Freq: Status: Active Protocol: Activity Type Activity Date Activity User E-Sign Co-Sign Detail Recorded Client Recorded Date Recorded By Document 02/28/21 10:16 KR [id number] 02/28/21 10:17 KR Document 03/07/21 09:51 MW [id number] 03/07/21 09:59 MW Document 03/14/21 10:14 AK [id number] 03/14/21 10:24 AK 02/28/21 03/07/21 03/14/21 10:16 09:51 10:14 Wound Center Nurse 1 #1 left hip -Combined with other wound No No -Current Size (cm) - Length 1.9 1.8 1.8 -Current Size (cm) - Width 3.8 3.7 3.7 -Current Size (cm) - Depth 1.5 1.5 0.5 -Total Square Cm 7.22 6.66 6.66 -Photo Taken No -Epithelialization Small 1-33% -Tunneling No No -Undermining/Tunneling No No -Circular Undermining No No -Exudate Amt Large Medium Large -Exudate Type Serosanguineous Serosanguineous Yellow/Green -Wound Margin Distinct, Flat & Intact Distinct, Outline Outline Attached Attached -Granulation Amt Medium (34-66%) Large (67-100%) Medium (34-66%) -Granulation Quality Red Red Red -Slough/Fibrin Yes Yes -Necrosis Amt Small (1-33%) None Present (0 Medium (34-66%) %) -Necrotic Tissue Type Adherent Slough Adherent Slough Adherent Slough -Structure Exposed N/A Fat Layer Exposed -Texture (Crystal-wound Skin Appearance) Assessed, Assessed, Assessed, Scarring Scarring Excoriation -Moisture (Crystal-wound Skin Appearance) Assessed, No Abnormality, Assessed,Dry/ Maceration Assessed,Dry/ Scaly Scaly -Color (Crystal-wound Skin Appearance) No Abnormality, Assessed, No Abnormality, Assessed Erythema Assessed -Temperature (Crystal-wound Skin No Abnormality No Abnormality No Abnormality Appearance) (Pt Warm) (Pt Warm) (Pt Warm) -Tenderness on Palpation (Crystal-wound No No No Skin Appearance) -Ulcer Cleansing Rinsed/ Rinsed/ Rinsed/ Irrigated with Irrigated with Irrigated with Saline Saline Saline -Foul Odor after Cleansing No No -Anesthetic Used 5% Lidocaine 4% Lidocaine 5% Lidocaine Gel Solution Gel Lower Limb Edema Present No WC - Nurse 2 - General Ulcer CM Notes Start: 02/28/21 10:15 Freq: Status: Active Protocol: Activity Type Activity Date Activity User E-Sign Co-Sign Detail Recorded Client Recorded Date Recorded By Document 02/28/21 12:22 PL [id number] 02/28/21 12:24 Document 03/07/21 12:59 PL [id number] 03/07/21 13:00 PL 02/28/21 03/07/21 12:22 12:59 Wound Center Nurse 2 -Time 10:28 10:25 -Correct Patient Yes Yes -Correct Side, Site, Position Yes Yes -Correct Procedure Yes Yes -Procedure Performed Yes Yes -Type of Procedure Debridement Debridement -Clinical Debridement Subcutaneous Subcutaneous -Tissue Removed Subcutaneous Subcutaneous -Post Debridement (cm) - Length 1.9 1.8 -Post Debridement (cm) - Width 3.8 3.7 -Post Debridement (cm) - Depth 1.5 1.5 -Total Square (Post) (cm) 7.22 6.66 -Area of Debridement (cm) - Length 1.9 1.8 -Area of Debridement (cm) - Width 3.8 3.7 -Total Square (Area) (cm) 7.22 6.66 -Tunneling No No -Undermining/Tunneling No No -Circular Undermining No No -Wound/Ulcer Outcome Not Healed Not Healed -Ulcer Cleansing Rinsed/ Rinsed/ Irrigated with Irrigated with Saline Saline -Foul Odor after Cleansing No No -Bioengineered Tissue No No -Debridement - Subq, 1st 20sq cm Yes Yes - Nurse 3 - General Ulcer D/C NN Start: 02/28/21 10:15 Freq: Status: Active Protocol: Activity Type Activity Date Activity User E-Sign Co-Sign Detail Recorded Client Recorded Date Recorded By Document 02/28/21 12:22 [id number] 02/28/21 12:24 Document 03/07/21 10:27 MW [id number] 03/07/21 10:28 MW 02/28/21 03/07/21 12:22 10:27 Pain Scale: 0-10 Numeric Is Patient Pain Free? Yes Wound Care Nurse 3 #1 left hip -Ulcer Cleansing Rinsed/ Irrigated with Saline -Foul Odor after Cleansing No -Negative Pressure Wound Therapy N/A -Other Dressing Dakins dakins wet to dry -Primary Dressing Covered/Secured with Dry Gauze, Dry Gauze, Secured with Secured with Tape Tape Treatment Response Procedure Tolerated Well Teaching: Wound Center Dressing Your Wound -Person Taught Patient -Teaching Method Discussion, Demonstration -Response to teaching Verbalize understanding WC - Visit Discharge Discharge Condition Stable Stable Ambulatory Status Ambulatory Cane Transportation Private Auto Private Auto Accompanied by self Medication Reconcilliation completed & No provided to patient/care provider Clinical Summary of Care Provided Yes Yes Wound debrided: Left hip Laterality: Left Type of Debridement: Excisional debridement Anesthesia Used: 5% Lidocaine Gel Depth: Down to and including healthy tissue and in the subcutaneous layer Percentage of wound debrided: 100 Instrument Used: 5mm curette Tissue Removed: Bioburden Severity: Fat Layer Exposed Amount of bleeding with debridement: Mild Bleeding Controlled with: Compression and gauze Patient tolerated procedure: Patient tolerated procedure well Assessment/Plan Assessment/Plan (1) Surgical wound infection: CODE(S): T81.49XA - Infection following a procedure, other surgical site, initial encounter (2) Surgical wound dehiscence: CODE(S): T81.31XA - Disruption of external operation (surgical) wound, not elsewhere classified, initial encounter QUALIFIERS: Encounter type: subsequent encounter Qualified Code(s): T81.31XD - Disruption of external operation (surgical) wound, not elsewhere classified, subsequent encounter (3) Status post left hip replacement: CODE(S): Z96.642 - Presence of left artificial hip joint (4) Alcohol use disorder, mild, abuse: CODE(S): F10.10 - Alcohol abuse, uncomplicated (5) Tobacco abuse counseling: CODE(S): Z71.6 - Tobacco abuse counseling (6) Tobacco abuse: CODE(S): Z72.0 - Tobacco use (7) Hyperlipidemia: CODE(S): E78.5 - Hyperlipidemia, unspecified (8) Hypertension: CODE(S): I10 - Essential (primary) hypertension (9) Obesity (BMI 30-39.9): CODE(S): E66.9 - Obesity, unspecified PLAN: This is a 60-year-old female who presented status post left total hip replacement surgery performed on November 23, 2020. Approximately 2 weeks following her surgery, her surgical incision dehisced, and had been managed by her orthopedic surgeon, Dr. Grey Francois, since that time. Patient has been referred for additional management. There was concern that the surgical wound may be infected, judging by its appearance and the odor emanating from the wound itself at the patient's initial visit. Swab cultures were obtained for both aerobic and anaerobic bacterial growth. The results revealed the presence of an E. coli and gram-positive belem. Patient was placed on Keflex 500 mg p.o. every 6 hours for 7 days. The antibiotic was tailored to the culture results, and has been completed. The patient is a smoker, and has been counseled as to the hazards of smoking, and how it may adversely affect wound healing. She has been advised to quit. Recent laboratory results have been reviewed, and appear satisfactory. The patient has encouraged to optimize her nutritional intake, and is using protein shakes on a daily basis. Although the patient's dehiscent wound continues to decrease in size, the surrounding skin remains erythematous, and appears to conform to the size and dimensions of a 4 x 4 gauze pad. Therefore, concern exists as to whether the erythema is inflammatory in nature, and perhaps related to extension of the Dakin's solution onto the periwound skin. Therefore, we are to transition our local wound care to the use of Promogran applied topically on a daily basis, and the use of a silicone border dressing. This will eliminate the use of Dakin's solution, and hopefully eliminate the periwound skin irritation. The goal had been to implement negative pressure wound therapy (NPWT). At present, there are some financial issues regarding the implementation of negative pressure wound therapy. Therefore, the plan to proceed to negative pressure wound therapy has been abandoned, for the time being. The status of the periwound skin will be reassessed at the patient's follow-up visit in 1 week. Total time: 28 minutes.
[2021-03-21 10:15] VITALS: RESP 18; TEMP 36.6; BMI 38.0
--- NOTE | 2021-03-21 11:15 | HP.PCM_ITS ---
History of Present Illness Date of Service: 03/21/21 Chief Complaint: Infected, dehiscent surgical wound?left hip History of Wound: This is a 60-year-old female who underwent left total hip replacement at [facility] on November 23, 2020. Approximately 2 weeks postoperatively, the patient developed a surgical wound dehiscence. She had been under the care of her orthopedic surgeon, Dr. Grey Francois, who [facility] and shravan godoy. Dr. Francois had been managing the patient in the postop period, and felt as though the underlying fascia remained intact. Management included the use of a silver alginate. Patient was treated with a course of oral doxycycline. No recent wound cultures had been obtained. Routine laboratory studies were obtained preoperatively (11/16/20), and no significant abnormalities were noted. The patient is fully ambulatory. She is consuming a protein shake on a daily basis. Referral was for the preparation and implementation of negative pressure wound therapy, if felt to be appropriate. [facility] Medical History Alcohol use disorder, mild, abuse Colon cancer screening Contusion of right eyebrow Hyperlipidemia Hypertension Hypertension Laceration of eyebrow, right Obesity (BMI 30-39.9) Surgical wound dehiscence Surgical wound infection Tobacco abuse Tobacco abuse counseling Home Medications lovastatin 40 mg tablet 40 mg PO DAILY 30 Days #30 09/10/17 [History Last Taken Unknown] cyanocobalamin (vitamin B-12) 1,000 mcg PO DAILY 11/09/20 [History Last Taken Unknown] escitalopram oxalate 5 mg PO DAILY 11/09/20 [History Last Taken Unknown] meloxicam 15 mg PO BID 11/09/20 [History Last Taken Unknown] bisoprolol fumarate 10 mg PO DAILY 01/17/21 [History Last Taken Unknown] Allergy/AdvReac Type Severity Reaction Status Date / Time No Known Allergies Allergy Verified 11/09/20 13:58 Family History Father Diabetes Mother Hypertension Surgical History History of removal of cyst History of tonsillectomy History of tubal ligation S/P colonoscopy with polypectomy (~11/18/17) Status post left hip replacement Social History Smoking Status: Current every day smoker alcohol intake: never substance use type: does not use Vital Signs Vital Signs Vital Signs: 03/21/21 10:15 Temperature 97.9 F Temperature Source Temporal Respiratory Rate 18 Weight Weight: 250 lb Body Mass Index (BMI) 38.0 Physical Exam Const alert, oriented x3, no apparent distress and well nourished Constitutional Narrative: The patient is obese. General Appearance: cooperative, comfortable and well developed Orientation / Consciousness: awake, oriented to person, oriented to place and oriented to time HEENT normocephalic and head/scalp atraumatic Head and Scalp: normal to inspection, normocephalic and atraumatic External Ear: external ears normal Eyes PERRL and EOMs intact bilaterally General Eye: normal appearance of both eyes Resp normal respiratory effort, normal air movement, no retractions and no use of accessory muscles Effort and Inspection: able to speak in complete sentences Extremity no calf tenderness General Extremity: Negative for clubbing or cyanosis Skin Wound Narrative: The dehiscent left hip wound persists. It appears to be smaller in size. Dimensions are documented elsewhere. There is no sign of infection or cellulitis. There is a moderate amount of bioburden. In general, the wound appears to be river and diminishing in size, with evidence of active, healthy granulation tissue. Neuro oriented x3, CN's II-XII intact bilaterally, moves all extremities and no focal motor deficits Sensorium / Orientation: awake, alert, oriented to person, oriented to place and oriented to time Psych Appearance: grossly normal and appropriate Attitude: calm Activity / Motor Behavior: appropriate eye contact Speech: normal speech Mood & Affect: euthymic mood Thought Process: normal thought process Thought Content: normal thought content Attention / Concentration: attention grossly intact Debridement Note Debridement Note Post-Debridement Measurements and Additional Note: Post-Debridement Measurements/Treatment WC - Nurse 1 - General Ulcer Assessment Start: 02/28/21 10:15 Freq: Status: Active Protocol: TAMIKO Activity Type Activity Date Activity User E-Sign Co-Sign Detail Recorded Client Recorded Date Recorded By Document 02/28/21 10:16 KR [id number] 02/28/21 10:17 KR Document 03/07/21 09:51 [id number] 03/07/21 09:59 MW Document 03/14/21 10:14 AK [id number] 03/14/21 10:24 AK Document 03/21/21 10:15 BMF [id number] 03/21/21 10:21 BMF 02/28/21 03/07/21 03/14/21 10:16 09:51 10:14 WC - Today's Visit Information Type of service Follow-up Visit Follow-up Visit Follow-up Visit (Physician/RECEIVER SETTER (Physician/RECEIVER SETTER (Physician/RECEIVER SETTER ) ) ) Arrival Mode Ambulatory Ambulatory Ambulatory Transfer Assistance None Accompanied by self Patient Identification Verified (Name & Yes Yes Yes ) Patient Requires Transmission-Based No No Precautions Safety Precautions NA Height and Weight Body Mass Index (BMI) 38.0 38.0 38.0 BMI Classification Obese Obese Obese Vital Signs Temperature (97.8 F-99.1 F) 96.5 F L 97.5 F L 97.2 F L Temperature Source Temporal Temporal Temporal Pulse Rate (60-100) 67 75 Pulse Location Monitor Monitor Respiratory Rate (12-18) 18 Respiratory rate source Observation Oxygen Delivery Method Room Air Blood Pressure (90/60-120/80) 194/94 H Blood Pressure Mean 127 Source Monitor Position Sitting Blood Pressure Location Left Arm Comment History Since Last Visit- (Skip if this is Patient's initial visit) Have you changed medications since your No No No last visit? Any new allergies or adverse reactions No No No Had a fall/change in ADL's that may No No No increase risk of falls Signs or symptoms of abuse and/or No No No neglect since last visit Have you been in the hospital since your No No No last visit? Has dressing in place as prescribed Yes Yes Yes Has compression in place as prescribed N/A N/A N/A Has offloadiing in place as prescribed N/A N/A N/A Experienced any changes in pain level or No No management Left Footwear Regular Shoe Regular Shoe Regular Shoe Right Footwear Regular Shoe Regular Shoe Regular Shoe Pain Scale: 0-10 Numeric Is Patient Pain Free? Yes Yes 03/21/21 10:15 WC - Today's Visit Information Type of service Follow-up Visit (Physician/RECEIVER SETTER ) Arrival Mode Ambulatory Transfer Assistance Accompanied by Patient Identification Verified (Name & Yes ) Patient Requires Transmission-Based No Precautions Safety Precautions Height and Weight Body Mass Index (BMI) 38.0 BMI Classification Obese Vital Signs Temperature (97.8 F-99.1 F) 97.9 F Temperature Source Temporal Pulse Rate (60-100) Pulse Location Respiratory Rate (12-18) 18 Respiratory rate source Monitor Oxygen Delivery Method Blood Pressure (90/60-120/80) Blood Pressure Mean Source Position Blood Pressure Location Comment REFUSED BP History Since Last Visit- (Skip if this is Patient's initial visit) Have you changed medications since your last visit? Any new allergies or adverse reactions Had a fall/change in ADL's that may increase risk of falls Signs or symptoms of abuse and/or neglect since last visit Have you been in the hospital since your last visit? Has dressing in place as prescribed Has compression in place as prescribed Has offloadiing in place as prescribed Experienced any changes in pain level or management Left Footwear Regular Shoe Right Footwear Regular Shoe Pain Scale: 0-10 Numeric Is Patient Pain Free? Yes WC - Nurse 1 - General Ulcer Measurement Start: 02/28/21 10:15 Freq: Status: Active Protocol: Activity Type Activity Date Activity User E-Sign Co-Sign Detail Recorded Client Recorded Date Recorded By Document 02/28/21 10:16 KR [id number] 02/28/21 10:17 KR Document 03/07/21 09:51 MW [id number] 03/07/21 09:59 MW Document 03/14/21 10:14 AK [id number] 03/14/21 10:24 AK Document 03/21/21 10:15 BMF [id number] 03/21/21 10:21 BMF 02/28/21 03/07/21 03/14/21 10:16 09:51 10:14 Wound Center Nurse 1 #1 left hip -Combined with other wound No No -Current Size (cm) - Length 1.9 1.8 1.8 -Current Size (cm) - Width 3.8 3.7 3.7 -Current Size (cm) - Depth 1.5 1.5 0.5 -Total Square Cm 7.22 6.66 6.66 -Photo Taken No -Epithelialization Small 1-33% -Tunneling No No -Undermining/Tunneling No No -Circular Undermining No No -Exudate Amt Large Medium Large -Exudate Type Serosanguineous Serosanguineous Yellow/Green -Wound Margin Distinct, Flat & Intact Distinct, Outline Outline Attached Attached -Granulation Amt Medium (34-66%) Large (67-100%) Medium (34-66%) -Granulation Quality Red Red Red -Slough/Fibrin Yes Yes -Necrosis Amt Small (1-33%) None Present (0 Medium (34-66%) %) -Necrotic Tissue Type Adherent Slough Adherent Slough Adherent Slough -Structure Exposed N/A Fat Layer Exposed -Texture (Crystal-wound Skin Appearance) Assessed, Assessed, Assessed, Scarring Scarring Excoriation -Moisture (Crystal-wound Skin Appearance) Assessed, No Abnormality, Assessed,Dry/ Maceration Assessed,Dry/ Scaly Scaly -Color (Crystal-wound Skin Appearance) No Abnormality, Assessed, No Abnormality, Assessed Erythema Assessed -Temperature (Crystal-wound Skin No Abnormality No Abnormality No Abnormality Appearance) (Pt Warm) (Pt Warm) (Pt Warm) -Tenderness on Palpation (Crystal-wound No No No Skin Appearance) -Ulcer Cleansing Rinsed/ Rinsed/ Rinsed/ Irrigated with Irrigated with Irrigated with Saline Saline Saline -Foul Odor after Cleansing No No -Anesthetic Used 5% Lidocaine 4% Lidocaine 5% Lidocaine Gel Solution Gel Lower Limb Edema Present No 03/21/21 10:15 Wound Center Nurse 1 #1 left hip -Combined with other wound No -Current Size (cm) - Length 0.9 -Current Size (cm) - Width 1.4 -Current Size (cm) - Depth 0.3 -Total Square Cm 1.26 -Photo Taken No -Epithelialization Small 1-33% -Tunneling No -Undermining/Tunneling No -Circular Undermining No -Exudate Amt Medium -Exudate Type Serosanguineous -Wound Margin Distinct, Outline Attached -Granulation Amt Large (67-100%) -Granulation Quality Red -Slough/Fibrin Yes -Necrosis Amt Small (1-33%) -Necrotic Tissue Type Adherent Slough -Structure Exposed -Texture (Crystal-wound Skin Appearance) Assessed, Scarring,Rash -Moisture (Crystal-wound Skin Appearance) Assessed,Dry/ Scaly -Color (Crystal-wound Skin Appearance) Assessed -Temperature (Crystal-wound Skin No Abnormality Appearance) (Pt Warm) -Tenderness on Palpation (Crystal-wound No Skin Appearance) -Ulcer Cleansing Rinsed/ Irrigated with Saline -Foul Odor after Cleansing No -Anesthetic Used 5% Lidocaine Gel Lower Limb Edema Present WC - Nurse 2 - General Ulcer CM Notes Start: 02/28/21 10:15 Freq: Status: Active Protocol: Activity Type Activity Date Activity User E-Sign Co-Sign Detail Recorded Client Recorded Date Recorded By Document 02/28/21 12:22 PL [id number] 02/28/21 12:24 PL Document 03/07/21 12:59 PL [id number] 03/07/21 13:00 PL Document 03/14/21 12:20 PL [id number] 03/14/21 12:23 PL 02/28/21 03/07/21 03/14/21 12:22 12:59 12:20 Wound Center Nurse 2 -Time 10:28 10:25 10:30 -Correct Patient Yes Yes Yes -Correct Side, Site, Position Yes Yes Yes -Correct Procedure Yes Yes Yes -Procedure Performed Yes Yes Yes -Type of Procedure Debridement Debridement Debridement -Clinical Debridement Subcutaneous Subcutaneous Subcutaneous -Tissue Removed Subcutaneous Subcutaneous Subcutaneous -Post Debridement (cm) - Length 1.9 1.8 1.8 -Post Debridement (cm) - Width 3.8 3.7 3.7 -Post Debridement (cm) - Depth 1.5 1.5 0.5 -Total Square (Post) (cm) 7.22 6.66 6.66 -Area of Debridement (cm) - Length 1.9 1.8 1.8 -Area of Debridement (cm) - Width 3.8 3.7 3.7 -Total Square (Area) (cm) 7.22 6.66 6.66 -Tunneling No No No -Undermining/Tunneling No No No -Circular Undermining No No No -Wound/Ulcer Outcome Not Healed Not Healed Not Healed -Ulcer Cleansing Rinsed/ Rinsed/ Rinsed/ Irrigated with Irrigated with Irrigated with Saline Saline Saline -Foul Odor after Cleansing No No No -Bioengineered Tissue No No No -Debridement - Subq, 1st 20sq cm Yes Yes Yes - Nurse 3 - General Ulcer D/C NN Start: 02/28/21 10:15 Freq: Status: Active Protocol: Activity Type Activity Date Activity User E-Sign Co-Sign Detail Recorded Client Recorded Date Recorded By Document 02/28/21 12:22 PL [id number] 02/28/21 12:24 PL Document 03/07/21 10:27 MW [id number] 03/07/21 10:28 MW Document 03/14/21 12:20 PL [id number] 03/14/21 12:23 PL Document 03/21/21 10:41 [facility] [id number] 03/21/21 10:44 BMF 02/28/21 03/07/21 03/14/21 12:22 10:27 12:20 Pain Scale: 0-10 Numeric Is Patient Pain Free? Yes Wound Care Nurse 3 #1 left hip -Ulcer Cleansing Rinsed/ Rinsed/ Irrigated with Irrigated with Saline Saline -Foul Odor after Cleansing No No -Negative Pressure Wound Therapy N/A -Primary Dressing Applied Mepilex Border, Promogran -Other Dressing Dakins dakins wet to dry -Primary Dressing Covered/Secured with Dry Gauze, Dry Gauze, Secured with Secured with Tape Tape -Mepilex Border 3 -Promogran 2 Treatment Response Procedure Tolerated Well Teaching: Wound Center Dressing Your Wound -Person Taught Patient Patient -Teaching Method Discussion, Discussion Demonstration -Response to teaching Verbalize Verbalize understanding understanding WC - Visit Discharge Discharge Condition Stable Stable Ambulatory Status Ambulatory Cane Transportation Private Auto Private Auto Accompanied by self Medication Reconcilliation completed & No provided to patient/care provider Clinical Summary of Care Provided Yes Yes 03/21/21 10:41 Pain Scale: 0-10 Numeric Is Patient Pain Free? Yes Wound Care Nurse 3 #1 left hip -Ulcer Cleansing Rinsed/ Irrigated with Saline -Foul Odor after Cleansing No -Negative Pressure Wound Therapy -Primary Dressing Applied Mepilex Border, Promogran -Other Dressing -Primary Dressing Covered/Secured with -Mepilex Border 1 -Promogran 1 Treatment Response Procedure Tolerated Well Teaching: Wound Center Dressing Your Wound -Person Taught -Teaching Method -Response to teaching WC - Visit Discharge Discharge Condition Stable Ambulatory Status Ambulatory Transportation Private Auto Accompanied by Medication Reconcilliation completed & provided to patient/care provider Clinical Summary of Care Provided Wound debrided: Left hip wound dehiscence Laterality: Left Type of Debridement: Excisional debridement Anesthesia Used: 5% Lidocaine Gel Depth: Down to and including healthy tissue and in the subcutaneous layer Percentage of wound debrided: 100 Instrument Used: 5mm curette Tissue Removed: Bioburden Severity: Fat Layer Exposed Amount of bleeding with debridement: Mild Bleeding Controlled with: Compression and gauze Patient tolerated procedure: Patient tolerated procedure well Assessment/Plan Assessment/Plan (1) Surgical wound infection: CODE(S): T81.49XA - Infection following a procedure, other surgical site, initial encounter (2) Surgical wound dehiscence: CODE(S): T81.31XA - Disruption of external operation (surgical) wound, not elsewhere classified, initial encounter QUALIFIERS: Encounter type: subsequent encounter Qualified Code(s): T81.31XD - Disruption of external operation (surgical) wound, not elsewhere classified, subsequent encounter (3) Status post left hip replacement: CODE(S): Z96.642 - Presence of left artificial hip joint (4) Alcohol use disorder, mild, abuse: CODE(S): F10.10 - Alcohol abuse, uncomplicated (5) Tobacco abuse counseling: CODE(S): Z71.6 - Tobacco abuse counseling (6) Tobacco abuse: CODE(S): Z72.0 - Tobacco use (7) Hyperlipidemia: CODE(S): E78.5 - Hyperlipidemia, unspecified (8) Hypertension: CODE(S): I10 - Essential (primary) hypertension (9) Obesity (BMI 30-39.9): CODE(S): E66.9 - Obesity, unspecified PLAN: This is a 60-year-old female who presented status post left total hip replacement surgery performed on November 23, 2020. Approximately 2 weeks following her surgery, her surgical incision dehisced, and had been managed by her orthopedic surgeon, Dr. Grey Francois, since that time. Patient has been referred for additional management. There was concern that the surgical wound may be infected, judging by its appearance and the odor emanating from the wound itself at the patient's initial visit. Swab cultures were obtained for both aerobic and anaerobic bacterial growth. The results revealed the presence of an E. coli and gram-positive belem. Patient was placed on Keflex 500 mg p.o. every 6 hours for 7 days. The antibiotic was tailored to the culture results, and has been completed. The patient is a smoker, and has been counseled as to the hazards of smoking, and how it may adversely affect wound healing. She has been advised to quit. Recent laboratory results have been reviewed, and appear sati sfactory. The patient has encouraged to optimize her nutritional intake, and is using protein shakes on a daily basis. Although the patient's dehiscent wound continues to decrease in size, the surrounding skin remains erythematous, and appears to conform to the size and dimensions of a 4 x 4 gauze pad. Therefore, concern exists as to whether the erythema is inflammatory in nature, and perhaps related to extension of the Dakin's solution onto the periwound skin. Therefore, we have transitioned our local wound care to the use of Promogran applied topically on a daily basis, and the use of a silicone border dressing. This will eliminate the use of Dakin's solution, and hopefully eliminate the periwound skin irritation. The goal had been to implement negative pressure wound therapy (NPWT). At present, there are some financial issues regarding the implementation of negative pressure wound therapy. Therefore, the plan to proceed to negative pressure wound therapy has been abandoned, for the time being. The status of the periwound skin will be reassessed at the patient's follow-up visit in 1 week. Total time: 29 minutes.
[2021-03-28 11:34] VITALS: BP 127/74; PULSE 65; TEMP 36.2; BMI 38.0
--- NOTE | 2021-03-28 13:31 | HP.PCM_ITS ---
History of Present Illness Date of Service: 03/28/21 Chief Complaint: Infected, dehiscent surgical wound?left hip History of Wound: This is a 60-year-old female who underwent left total hip replacement at [facility] on November 23, 2020. Approximately 2 weeks postoperatively, the patient developed a surgical wound dehiscence. She had been under the care of her orthopedic surgeon, Dr. Grey Francois, who [facility] and shravan godoy. Dr. Francois had been managing the patient in the postop period, and felt as though the underlying fascia remained intact. Management included the use of a silver alginate. Patient was treated with a course of oral doxycycline. No recent wound cultures had been obtained. Routine laboratory studies were obtained preoperatively (11/16/20), and no significant abnormalities were noted. The patient is fully ambulatory. She is consuming a protein shake on a daily basis. Referral was for the preparation and implementation of negative pressure wound therapy, if felt to be appropriate. PENDING SALE TO [facility] Medical History Alcohol use disorder, mild, abuse Colon cancer screening Contusion of right eyebrow Hyperlipidemia Hypertension Hypertension Laceration of eyebrow, right Obesity (BMI 30-39.9) Surgical wound dehiscence Surgical wound infection Tobacco abuse Tobacco abuse counseling Home Medications lovastatin 40 mg tablet 40 mg PO DAILY 30 Days #30 09/10/17 [History Last Taken Unknown] cyanocobalamin (vitamin B-12) 1,000 mcg PO DAILY 11/09/20 [History Last Taken Unknown] escitalopram oxalate 5 mg PO DAILY 11/09/20 [History Last Taken Unknown] meloxicam 15 mg PO BID 11/09/20 [History Last Taken Unknown] bisoprolol fumarate 10 mg PO DAILY 01/17/21 [History Last Taken Unknown] Allergy/AdvReac Type Severity Reaction Status Date / Time No Known Allergies Allergy Verified 11/09/20 13:58 Family History Father Diabetes Mother Hypertension Surgical History History of removal of cyst History of tonsillectomy History of tubal ligation S/P colonoscopy with polypectomy (~11/18/17) Status post left hip replacement Social History Smoking Status: Current every day smoker alcohol intake: never substance use type: does not use Vital Signs Vital Signs Vital Signs: 03/28/21 11:34 Temperature 97.1 F L Temperature Source Temporal Pulse Rate 65 Blood Pressure 127/74 H Blood Pressure Mean 91 Blood Pressure Source Monitor Blood Pressure Position Semi-Fowlers Blood Pressure Location Right Arm Weight Weight: 250 lb Body Mass Index (BMI) 38.0 Physical Exam Const alert, oriented x3, no apparent distress and well nourished General Appearance: cooperative, comfortable and well developed Orientation / Consciousness: awake, oriented to person, oriented to place and oriented to time HEENT normocephalic and head/scalp atraumatic Head and Scalp: normal to inspection, normocephalic and atraumatic External Ear: external ears normal Eyes PERRL and EOMs intact bilaterally General Eye: normal appearance of both eyes Resp normal respiratory effort, normal air movement, no retractions and no use of accessory muscles Effort and Inspection: able to speak in complete sentences Extremity no calf tenderness General Extremity: Negative for clubbing or cyanosis Skin Wound Narrative: The dehiscent surgical wound on the patient's left hip persists, but continues to diminish in size. Dimensions are documented elsewhere. There is no sign of infection or cellulitis. There is evidence of peripheral epithelialization. There is a moderate amount of bioburden. Neuro oriented x3, CN's II-XII intact bilaterally and moves all extremities Sensorium / Orientation: awake, alert, oriented to person, oriented to place and oriented to time Psych Appearance: grossly normal and appropriate Attitude: calm Activity / Motor Behavior: appropriate eye contact Speech: normal speech Mood & Affect: euthymic mood Thought Process: normal thought process Thought Content: normal thought content Attention / Concentration: attention grossly intact Debridement Note Debridement Note Post-Debridement Measurements and Additional Note: Post-Debridement Measurements/Treatment WC - Nurse 1 - General Ulcer Assessment Start: 02/28/21 10:15 Freq: Status: Active Protocol: ASHLYN.JACKY Activity Type Activity Date Activity User E-Sign Co-Sign Detail Recorded Client Recorded Date Recorded By Document 02/28/21 10:16 KR [id number] 02/28/21 10:17 KR Document 03/07/21 09:51 MW [id number] 03/07/21 09:59 MW Document 03/14/21 10:14 AK [id number] 03/14/21 10:24 AK Document 03/21/21 10:15 BMF [id number] 03/21/21 10:21 BMF Document 03/28/21 11:34 KR [id number] 03/28/21 11:35 KR 02/28/21 03/07/21 03/14/21 10:16 09:51 10:14 WC - Today's Visit Information Type of service Follow-up Visit Follow-up Visit Follow-up Visit (Physician/DUMPSTER DRIVER (Physician/DUMPSTER DRIVER (Physician/DUMPSTER DRIVER ) ) ) Arrival Mode Ambulatory Ambulatory Ambulatory Transfer Assistance None Accompanied by self Patient Identification Verified (Name & Yes Yes Yes ) Patient Requires Transmission-Based No No Precautions Safety Precautions NA Height and Weight Body Mass Index (BMI) 38.0 38.0 38.0 BMI Classification Obese Obese Obese Vital Signs Temperature (97.8 F-99.1 F) 96.5 F L 97.5 F L 97.2 F L Temperature Source Temporal Temporal Temporal Pulse Rate (60-100) 67 75 Pulse Location Monitor Monitor Respiratory Rate (12-18) 18 Respiratory rate source Observation Oxygen Delivery Method Room Air Blood Pressure (90/60-120/80) 194/94 H Blood Pressure Mean 127 Source Monitor Position Sitting Blood Pressure Location Left Arm Comment History Since Last Visit- (Skip if this is Patient's initial visit) Have you changed medications since your No No No last visit? Any new allergies or adverse reactions No No No Had a fall/change in ADL's that may No No No increase risk of falls Signs or symptoms of abuse and/or No No No neglect since last visit Have you been in the hospital since your No No No last visit? Has dressing in place as prescribed Yes Yes Yes Has compression in place as prescribed N/A N/A N/A Has offloadiing in place as prescribed N/A N/A N/A Experienced any changes in pain level or No No management Left Footwear Regular Shoe Regular Shoe Regular Shoe Right Footwear Regular Shoe Regular Shoe Regular Shoe Pain Scale: 0-10 Numeric Is Patient Pain Free? Yes Yes 03/21/21 03/28/21 10:15 11:34 WC - Today's Visit Information Type of service Follow-up Visit Follow-up Visit (Physician/DUMPSTER DRIVER (Physician/DUMPSTER DRIVER ) ) Arrival Mode Ambulatory Ambulatory Transfer Assistance Accompanied by Patient Identification Verified (Name & Yes Yes ) Patient Requires Transmission-Based No Precautions Safety Precautions Height and Weight Body Mass Index (BMI) 38.0 38.0 BMI Classification Obese Obese Vital Signs Temperature (97.8 F-99.1 F) 97.9 F 97.1 F L Temperature Source Temporal Temporal Pulse Rate (60-100) 65 Pulse Location Monitor Respiratory Rate (12-18) 18 Respiratory rate source Monitor Oxygen Delivery Method Blood Pressure (90/60-120/80) 127/74 H Blood Pressure Mean 91 Source Monitor Position Semi-Fowlers Blood Pressure Location Right Arm Comment REFUSED BP History Since Last Visit- (Skip if this is Patient's initial visit) Have you changed medications since your No last visit? Any new allergies or adverse reactions No Had a fall/change in ADL's that may No increase risk of falls Signs or symptoms of abuse and/or No neglect since last visit Have you been in the hospital since your No last visit? Has dressing in place as prescribed Yes Has compression in place as prescribed N/A Has offloadiing in place as prescribed N/A Experienced any changes in pain level or No management Left Footwear Regular Shoe Regular Shoe Right Footwear Regular Shoe Regular Shoe Pain Scale: 0-10 Numeric Is Patient Pain Free? Yes Yes WC - Nurse 1 - General Ulcer Measurement Start: 02/28/21 10:15 Freq: Status: Active Protocol: Activity Type Activity Date Activity User E-Sign Co-Sign Detail Recorded Client Recorded Date Recorded By Document 02/28/21 10:16 KR [id number] 02/28/21 10:17 KR Document 03/07/21 09:51 MW [id number] 03/07/21 09:59 MW Document 03/14/21 10:14 AK [id number] 03/14/21 10:24 AK Document 03/21/21 10:15 BMF [id number] 03/21/21 10:21 BMF Document 03/28/21 11:34 KR [id number] 03/28/21 11:35 KR 02/28/21 03/07/21 03/14/21 10:16 09:51 10:14 Wound Center Nurse 1 #1 left hip -Combined with other wound No No -Current Size (cm) - Length 1.9 1.8 1.8 -Current Size (cm) - Width 3.8 3.7 3.7 -Current Size (cm) - Depth 1.5 1.5 0.5 -Total Square Cm 7.22 6.66 6.66 -Photo Taken No -Epithelialization Small 1-33% -Tunneling No No -Undermining/Tunneling No No -Circular Undermining No No -Exudate Amt Large Medium Large -Exudate Type Serosanguineous Serosanguineous Yellow/Green -Wound Margin Distinct, Flat & Intact Distinct, Outline Outline Attached Attached -Granulation Amt Medium (34-66%) Large (67-100%) Medium (34-66%) -Granulation Quality Red Red Red -Slough/Fibrin Yes Yes -Necrosis Amt Small (1-33%) None Present (0 Medium (34-66%) %) -Necrotic Tissue Type Adherent Slough Adherent Slough Adherent Slough -Structure Exposed N/A Fat Layer Exposed -Texture (Crystal-wound Skin Appearance) Assessed, Assessed, Assessed, Scarring Scarring Excoriation -Moisture (Crystal-wound Skin Appearance) Assessed, No Abnormality, Assessed,Dry/ Maceration Assessed,Dry/ Scaly Scaly -Color (Crystal-wound Skin Appearance) No Abnormality, Assessed, No Abnormality, Assessed Erythema Assessed -Temperature (Crystal-wound Skin No Abnormality No Abnormality No Abnormality Appearance) (Pt Warm) (Pt Warm) (Pt Warm) -Tenderness on Palpation (Crystal-wound No No No Skin Appearance) -Ulcer Cleansing Rinsed/ Rinsed/ Rinsed/ Irrigated with Irrigated with Irrigated with Saline Saline Saline -Foul Odor after Cleansing No No -Anesthetic Used 5% Lidocaine 4% Lidocaine 5% Lidocaine Gel Solution Gel Lower Limb Edema Present No 03/21/21 03/28/21 10:15 11:34 Wound Center Nurse 1 #1 left hip -Combined with other wound No -Current Size (cm) - Length 0.9 0.6 -Current Size (cm) - Width 1.4 2 -Current Size (cm) - Depth 0.3 0.3 -Total Square Cm 1.26 1.2 -Photo Taken No -Epithelialization Small 1-33% -Tunneling No -Undermining/Tunneling No -Circular Undermining No -Exudate Amt Medium Small -Exudate Type Serosanguineous Serosanguineous -Wound Margin Distinct, Distinct, Outline Outline Attached Attached -Granulation Amt Large (67-100%) Small (1-33%) -Granulation Quality Red [place] -Slough/Fibrin Yes -Necrosis Amt Small (1-33%) Small (1-33%) -Necrotic Tissue Type Adherent Slough Adherent Slough -Structure Exposed -Texture (Crystal-wound Skin Appearance) Assessed, Assessed, Scarring,Rash Scarring -Moisture (Crystal-wound Skin Appearance) Assessed,Dry/ No Abnormality, Scaly Assessed -Color (Crystal-wound Skin Appearance) Assessed No Abnormality, Assessed -Temperature (Crystal-wound Skin No Abnormality No Abnormality Appearance) (Pt Warm) (Pt Warm) -Tenderness on Palpation (Crystal-wound No No Skin Appearance) -Ulcer Cleansing Rinsed/ Rinsed/ Irrigated with Irrigated with Saline Saline -Foul Odor after Cleansing No No -Anesthetic Used 5% Lidocaine 5% Lidocaine Gel Gel Lower Limb Edema Present WC - Nurse 2 - General Ulcer CM Notes Start: 02/28/21 10:15 Freq: Status: Active Protocol: Activity Type Activity Date Activity User E-Sign Co-Sign Detail Recorded Client Recorded Date Recorded By Document 02/28/21 12:22 PL [id number] 02/28/21 12:24 PL Document 03/07/21 12:59 PL [id number] 03/07/21 13:00 PL Document 03/14/21 12:20 PL [id number] 03/14/21 12:23 PL Document 03/21/21 12:16 PL [id number] 03/21/21 12:17 PL Document 03/28/21 13:27 PL [id number] 03/28/21 13:27 PL 02/28/21 03/07/21 03/14/21 12:22 12:59 12:20 Wound Center Nurse 2 -Time 10:28 10:25 10:30 -Correct Patient Yes Yes Yes -Correct Side, Site, Position Yes Yes Yes -Correct Procedure Yes Yes Yes -Procedure Performed Yes Yes Yes -Type of Procedure Debridement Debridement Debridement -Clinical Debridement Subcutaneous Subcutaneous Subcutaneous -Tissue Removed Subcutaneous Subcutaneous Subcutaneous -Post Debridement (cm) - Length 1.9 1.8 1.8 -Post Debridement (cm) - Width 3.8 3.7 3.7 -Post Debridement (cm) - Depth 1.5 1.5 0.5 -Total Square (Post) (cm) 7.22 6.66 6.66 -Area of Debridement (cm) - Length 1.9 1.8 1.8 -Area of Debridement (cm) - Width 3.8 3.7 3.7 -Total Square (Area) (cm) 7.22 6.66 6.66 -Tunneling No No No -Undermining/Tunneling No No No -Circular Undermining No No No -Wound/Ulcer Outcome Not Healed Not Healed Not Healed -Ulcer Cleansing Rinsed/ Rinsed/ Rinsed/ Irrigated with Irrigated with Irrigated with Saline Saline Saline -Foul Odor after Cleansing No No No -Bioengineered Tissue No No No -Bleeding Controlled with -Treatment Response -Debridement - Subq, 20sq cm Yes Yes Yes 03/21/21 03/28/21 12:16 13:27 Wound Center Nurse 2 -Time 10:28 11:40 -Correct Patient Yes Yes -Correct Side, Site, Position Yes Yes -Correct Procedure Yes Yes -Procedure Performed Yes Yes -Type of Procedure Debridement Debridement -Clinical Debridement Subcutaneous Subcutaneous -Tissue Removed Subcutaneous Subcutaneous -Post Debridement (cm) - Length 0.9 0.6 -Post Debridement (cm) - Width 1.4 2.0 -Post Debridement (cm) - Depth 0.3 0.3 -Total Square (Post) (cm) 1.26 1.20 -Area of Debridement (cm) - Length 0.9 0.6 -Area of Debridement (cm) - Width 1.4 2.0 -Total Square (Area) (cm) 1.26 1.20 -Tunneling No No -Undermining/Tunneling No No -Circular Undermining No No -Wound/Ulcer Outcome Not Healed Not Healed -Ulcer Cleansing Rinsed/ Rinsed/ Irrigated with Irrigated with Saline Saline -Foul Odor after Cleansing No No -Bioengineered Tissue No No -Bleeding Controlled with Pressure -Treatment Response Procedure Tolerated Well -Debridement - Subq, 20sq cm Yes Yes WC - Nurse 3 - General Ulcer D/C NN Start: 02/28/21 10:15 Freq: Status: Active Protocol: Activity Type Activity Date Activity User E-Sign Co-Sign Detail Recorded Client Recorded Date Recorded By Document 02/28/21 12:22 PL [id number] 02/28/21 12:24 PL Document 03/07/21 10:27 MW [id number] 03/07/21 10:28 MW Document 03/14/21 12:20 PL [id number] 03/14/21 12:23 PL Document 03/21/21 10:41 [facility] [id number] 03/21/21 10:44 BMF 02/28/21 03/07/21 03/14/21 12:22 10:27 12:20 Pain Scale: 0-10 Numeric Is Patient Pain Free? Yes Wound Care Nurse 3 #1 left hip -Ulcer Cleansing Rinsed/ Rinsed/ Irrigated with Irrigated with Saline Saline -Foul Odor after Cleansing No No -Negative Pressure Wound Therapy N/A -Primary Dressing Applied Mepilex Border, Promogran -Other Dressing Dakins dakins wet to dry -Primary Dressing Covered/Secured with Dry Gauze, Dry Gauze, Secured with Secured with Tape Tape -Mepilex Border 3 -Promogran 2 Treatment Response Procedure Tolerated Well Teaching: Wound Center Dressing Your Wound -Person Taught Patient Patient -Teaching Method Discussion, Discussion Demonstration -Response to teaching Verbalize Verbalize understanding understanding WC - Visit Discharge Discharge Condition Stable Stable Ambulatory Status Ambulatory Cane Transportation Private Auto Private Auto Accompanied by self Medication Reconcilliation completed & No provided to patient/care provider Clinical Summary of Care Provided Yes Yes 03/21/21 10:41 Pain Scale: 0-10 Numeric Is Patient Pain Free? Yes Wound Care Nurse 3 #1 left hip -Ulcer Cleansing Rinsed/ Irrigated with Saline -Foul Odor after Cleansing No -Negative Pressure Wound Therapy -Primary Dressing Applied Mepilex Border, Promogran -Other Dressing -Primary Dressing Covered/Secured with -Mepilex Border 1 -Promogran 1 Treatment Response Procedure Tolerated Well Teaching: Wound Center Dressing Your Wound -Person Taught -Teaching Method -Response to teaching WC - Visit Discharge Discharge Condition Stable Ambulatory Status Ambulatory Transportation Private Auto Accompanied by Medication Reconcilliation completed & provided to patient/care provider Clinical Summary of Care Provided Wound debrided: Left hip Laterality: Left Type of Debridement: Excisional debridement Anesthesia Used: 5% Lidocaine Gel Depth: Down to and including healthy tissue and in the subcutaneous layer Percentage of wound debrided: 100 Instrument Used: 5mm curette Tissue Removed: Bioburden Severity: Fat Layer Exposed Amount of bleeding with debridement: Mild Bleeding Controlled with: Compression and gauze Patient tolerated procedure: Patient tolerated procedure well Assessment/Plan Assessment/Plan (1) Surgical wound dehiscence: CODE(S): T81.31XA - Disruption of external operation (surgical) wound, not elsewhere classified, initial encounter QUALIFIERS: Encounter type: subsequent encounter Qualified Code(s): T81.31XD - Disruption of external operation (surgical) wound, not elsewhere classified, subsequent encounter (2) Surgical wound infection: CODE(S): T81.49XA - Infection following a procedure, other surgical site, initial encounter (3) Status post left hip replacement: CODE(S): Z96.642 - Presence of left artificial hip joint (4) Alcohol use disorder, mild, abuse: CODE(S): F10.10 - Alcohol abuse, uncomplicated (5) Tobacco abuse counseling: CODE(S): Z71.6 - Tobacco abuse counseling (6) Tobacco abuse: CODE(S): Z72.0 - Tobacco use (7) Hyperlipidemia: CODE(S): E78.5 - Hyperlipidemia, unspecified (8) Hypertension: CODE(S): I10 - Essential (primary) hypertension (9) Obesity (BMI 30-39.9): CODE(S): E66.9 - Obesity, unspecified PLAN: This is a 60-year-old female who presented status post left total hip replacement surgery performed on November 23, 2020. Approximately 2 weeks following her surgery, her surgical incision dehisced, and had been managed by her orthopedic surgeon, Dr. Grey Francois, since that time. Patient has been referred for additional management. There was concern that the surgical wound may be infected, judging by its appearance and the odor emanating from the wound itself at the patient's initial visit. Swab cultures were obtained for both aerobic and anaerobic bacterial growth. The results revealed the presence of an E. coli and gram-positive belem. Patient was placed on Keflex 500 mg p.o. every 6 hours for 7 days. The antibiotic was tailored to the culture results, and has been completed. The patient is a smoker, and has been counseled as to the hazards of smoking, and how it may adversely affect wound healing. She has been advised to quit. Recent laboratory results have been reviewed, and appear satisfactory. The patient has encouraged to optimize her nutritional intake, and is using protein shakes on a daily basis. Although the patient's dehiscent wound continues to decrease in size, the surrounding skin remains erythematous, and appears to conform to the size and dimensions of a 4 x 4 gauze pad. Therefore, concern exists as to whether the erythema is inflammatory in nature, and perhaps related to extension of the Dakin's solution onto the periwound skin. Therefore, we have transitioned our local wound care to the use of Promogran applied topically on a daily basis, and the use of a silicone border dressing. This will eliminate the use of Dakin's solution, and hopefully eliminate the periwound skin irritation. The goal had been to implement negative pressure wound therapy (NPWT). At present, there are some financial issues regarding the implementation of negative pressure wound therapy. Therefore, the plan to proceed to negative pressure wound therapy has been abandoned, for the time being. The status of the periwound skin will be reassessed at the patient's follow-up visit in 1 week. Total time: 28 minutes.
== END 2021-03-28 23:59 ==
LOC: WC 10:15
PROVIDERS: PCP Family Medicine; Referring Provider Specialist; Visit Provider Surgery
DX: T81.31XA Disruption of external operation (surgical) wound, not elsewhere classified, initial encounter (principal); Y79.2 Prosthetic and other implants, materials and accessory orthopedic devices associated with adverse incidents; F10.10 Alcohol abuse, uncomplicated; E78.5 Hyperlipidemia, unspecified; I10 Essential (primary) hypertension; E66.9 Obesity, unspecified; Z79.1 Long term (current) use of non-steroidal anti-inflammatories (NSAID); Z79.899 Other long term (current) drug therapy; F17.200 Nicotine dependence, unspecified, uncomplicated; Z68.38 Body mass index [BMI] 38.0-38.9, adult; Z96.642 Presence of left artificial hip joint
CPT/HCPCS: 11042

== ENCOUNTER 2021-04-11 11:00 | Outpatient (RCR) | payer OTHER, SELFPAY ==
[2021-03-29 00:37] VITALS: BP 127/74; PULSE 65; RESP 18; TEMP 36.2; BMI 38.0
[2021-04-11 11:09] VITALS: BP 179/92; PULSE 76; TEMP 36.2; BMI 38.0
--- NOTE | 2021-04-11 11:46 | HP.PCM_ITS ---
History of Present Illness Date of Service: 04/11/21 Chief Complaint: Infected, dehiscent surgical wound?left hip History of Wound: This is a 60-year-old female who underwent left total hip replacement at [facility] on November 23, 2020. Approximately 2 weeks postoperatively, the patient developed a surgical wound dehiscence. She had been under the care of her orthopedic surgeon, Dr. Grey Francois, who [facility] the [facility] evaluation and shravan godoy. Dr. Francois had been managing the patient in the postop period, and felt as though the underlying fascia remained intact. Management included the use of a silver alginate. Patient was treated with a course of oral doxycycline. No recent wound cultures had been obtained. Routine laboratory studies were obtained preoperatively (11/16/20), and no significant abnormalities were noted. The patient is fully ambulatory. She is consuming a protein shake on a daily basis. Referral was for the preparation and implementation of negative pressure wound therapy, if felt to be appropriate. [facility] Medical History Alcohol use disorder, mild, abuse Colon cancer screening Contusion of right eyebrow Hyperlipidemia Hypertension Hypertension Laceration of eyebrow, right Obesity (BMI 30-39.9) Surgical wound dehiscence Surgical wound infection Tobacco abuse Tobacco abuse counseling Home Medications lovastatin 40 mg tablet 40 mg PO DAILY 30 Days #30 09/10/17 [History Last Taken Unknown] cyanocobalamin (vitamin B-12) 1,000 mcg PO DAILY 11/09/20 [History Last Taken Unknown] escitalopram oxalate 5 mg PO DAILY 11/09/20 [History Last Taken Unknown] meloxicam 15 mg PO BID 11/09/20 [History Last Taken Unknown] bisoprolol fumarate 10 mg PO DAILY 01/17/21 [History Last Taken Unknown] Allergy/AdvReac Type Severity Reaction Status Date / Time No Known Allergies Allergy Verified 11/09/20 13:58 Family History Father Diabetes Mother Hypertension Surgical History History of removal of cyst History of tonsillectomy History of tubal ligation S/P colonoscopy with polypectomy (~11/18/17) Status post left hip replacement Social History Smoking Status: Current every day smoker alcohol intake: never substance use type: does not use Vital Signs Vital Signs Vital Signs: 04/11/21 11:09 Temperature 97.1 F L Temperature Source Temporal Pulse Rate 76 Blood Pressure 179/92 H Blood Pressure Mean 121 Blood Pressure Source Monitor Blood Pressure Position Sitting Blood Pressure Location Right Arm Weight Weight: 250 lb Body Mass Index (BMI) 38.0 Physical Exam Const alert, oriented x3, no apparent distress and well nourished General Appearance: cooperative, comfortable and well developed Orientation / Consciousness: awake, oriented to person, oriented to place and oriented to time HEENT normocephalic and head/scalp atraumatic Head and Scalp: normal to inspection, normocephalic and atraumatic External Ear: external ears normal Eyes PERRL and EOMs intact bilaterally General Eye: normal appearance of both eyes Resp normal respiratory effort, normal air movement, no retractions and no use of accessory muscles Effort and Inspection: able to speak in complete sentences Extremity no calf tenderness General Extremity: Negative for clubbing or cyanosis Skin Wound Narrative: The dehiscent left hip surgical wound now appears to be totally healed and epithelialized. There is some depression of the skin at the site, but no remaining open wound. Neuro oriented x3, CN's II-XII intact bilaterally, moves all extremities and no focal motor deficits Sensorium / Orientation: awake, alert, oriented to person, oriented to place and oriented to time Psych Appearance: grossly normal and appropriate Attitude: calm Activity / Motor Behavior: appropriate eye contact Speech: normal speech Mood & Affect: euthymic mood Thought Process: normal thought process Thought Content: normal thought content Attention / Concentration: attention grossly intact Debridement Note Debridement Note No debridement was completed: No debridement was completed today Assessment/Plan Assessment/Plan (1) Surgical wound dehiscence: CODE(S): T81.31XA - Disruption of external operation (surgical) wound, not elsewhere classified, initial encounter QUALIFIERS: Encounter type: subsequent encounter Qualified Code(s): T81.31XD - Disruption of external operation (surgical) wound, not elsewhere classified, subsequent encounter (2) Surgical wound infection: CODE(S): T81.49XA - Infection following a procedure, other surgical site, initial encounter (3) Status post left hip replacement: CODE(S): Z96.642 - Presence of left artificial hip joint (4) Alcohol use disorder, mild, abuse: CODE(S): F10.10 - Alcohol abuse, uncomplicated (5) Tobacco abuse counseling: CODE(S): Z71.6 - Tobacco abuse counseling (6) Tobacco abuse: CODE(S): Z72.0 - Tobacco use (7) Hyperlipidemia: CODE(S): E78.5 - Hyperlipidemia, unspecified (8) Hypertension: CODE(S): I10 - Essential (primary) hypertension (9) Obesity (BMI 30-39.9): CODE(S): E66.9 - Obesity, unspecified PLAN: This is a 60-year-old female who presented status post left total hip replacement surgery performed on November 23, 2020. Approximately 2 weeks following her surgery, her surgical incision dehisced, and had been managed by her orthopedic surgeon, Dr. Grey Francois, since that time. Patient was referred for additional management. There was concern that the surgical wound may be infected, judging by its appearance and the odor emanating from the wound itself at the patient's initial visit. Swab cultures were obtained for both aerobic and anaerobic bacterial growth. The results revealed the presence of an E. coli and gram-positive belem. Patient was placed on Keflex 500 mg p.o. every 6 hours for 7 days. The antibiotic was tailored to the culture results, and has been completed. The patient is a smoker, and has been counseled as to the hazards of smoking, and how it may adversely affect wound healing. She has been advised to quit. Recent laboratory results have been reviewed, and appear satisfactory. The patient has encouraged to optimize her nutritional intake, and is using protein shakes on a daily basis. Although the patient's dehiscent wound decreased in size, the surrounding skin became erythematous, and appeared to conform to the size and dimensions of a 4 x 4 gauze pad. Therefore, concern existed as to whether the erythema was inflammatory in nature, and perhaps related to extension of the Dakin's solution onto the periwound skin. Therefore, we transitioned our local wound care to the use of Promogran applied topically on a daily basis, and the use of a silicone border dressing. This eliminated the use of Dakin's solution, and alleviated the periwound skin irritation. The goal had been to implement negative pressure wound therapy (NPWT). There had been some financial issues regarding the implementation of negative pressure wound therapy. Therefore, the plan to proceed to negative pressure wound therapy was abandoned. Upon follow-up in the [facility] today, the left hip wound is completely healed and epithelialized. She is to be discharged, and will follow-up henceforth on an as-needed basis. Total time: 28 minutes.
== END 2021-04-11 11:36 | disposition home or self-care (01) ==
LOC: WC 11:00
PROVIDERS: PCP Family Medicine; Referring Provider Specialist; Visit Provider Surgery
DX: T81.31XA Disruption of external operation (surgical) wound, not elsewhere classified, initial encounter (principal); Y79.2 Prosthetic and other implants, materials and accessory orthopedic devices associated with adverse incidents; E78.5 Hyperlipidemia, unspecified; E66.9 Obesity, unspecified; I10 Essential (primary) hypertension; Z68.38 Body mass index [BMI] 38.0-38.9, adult; Z78.0 Asymptomatic menopausal state; Z79.899 Other long term (current) drug therapy; Z96.642 Presence of left artificial hip joint; F17.200 Nicotine dependence, unspecified, uncomplicated; F10.10 Alcohol abuse, uncomplicated
CPT/HCPCS: 99213; G0463

== ENCOUNTER → 2022-07-10 | Outpatient (CLI) | payer OTHER, SELFPAY | END | disposition home or self-care (01) | LOC: LABSPEC 11:17 | PROVIDERS: PCP Family Medicine; Visit Provider Surgery | DX: Z01.818 Encounter for other preprocedural examination (principal) | CPT/HCPCS: 87081 ==

== ENCOUNTER 2022-07-16 10:50 | Day surgery (SDC) | payer OTHER, SELFPAY ==
[2022-07-16] VITALS (9 sets, daily range): BP systolic 132–172; BP diastolic 80–94; PULSE 75–89; RESP 16–18; TEMP 36.2–36.7; O2SAT 94–100; BMI 41.0
--- NOTE | 2022-07-16 | AXNB_PTH ---
PATIENT: JADE OVERTON LOC: [facility] U#:[id number] AGE/SX: 62/F ROOM: RE07/16/[address]: Dr. Himanshu Adams MD : 1960 BED: DIS: 07/16/2022 SPEC #: [id number] RECD: 07/16/22 15:04 STATUS: LIZZIE REMaggie #: [id number] MARIVEL: 07/16/22 00:[address]: Himanshu Adams DEPT: SURGICAL PATHOLOGY RECD BY: Paz Arceo ENTERED: 07/16/22 15:44 SP TYPE: AX NODE BX OTHR DR: Dr. Delano Shaw MD Tissues: A - Axillary lymph node, NOS B - Right breast, NOS C - Axillary lymph node, NOS Procedures: Frozen Section (charge) Frozen Section Add'l ([facility]) Surgery Specimen Level V HEADER OPERATION: Breast stereo wire localization lumpectomy with blue dye PRE-OP DIAGNOSIS: Breast cancer TISSUE SUBMITTED: A ? Right axillary sentinel lymph node, FS, B ? Right breast mass (wire ? anterior, long suture ? lateral, short suture ? superior), C - Right sentinel lymph nodes axillary, FS FROZEN SECTION DIAGNOSIS A. Right axillary sentinel lymph node, biopsy: One out of one lymph node negative for carcinoma. AM: 07/16/2022 C. Right axillary sentinel lymph nodes, biopsy: Two out of two lymph nodes, negative for metastatic carcinoma. : 07/16/2022 MICROSCOPIC DIAGNOSIS A. Right axillary sentinel lymph node, biopsy: One lymph node, negative for metastatic carcinoma. See comment. B. Right breast mass, lumpectomy with wire localization: Invasive ductal carcinoma. See cancer summary in the comment section. C. Right axillary sentinel lymph node, biopsy: Two out of two lymph nodes, negative for metastatic carcinoma. See comment. : 07/20/2022 COMMENT A & C. The lymph nodes are negative for metastatic carcinoma on multiple H & E levels and immuno-histochemical stains for cytokeratins ([id number]). B. Immunohistochemistry ([id number]) supports the above diagnosis. B. BREAST CANCER SUMMARY Procedure ? excision, lumpectomy with wire localization Specimen laterality - right Tumor site ? not specified Tumor size ? 1.5 x 1 x 1 cm Histologic type ? invasive ductal carcinoma, not otherwise specified. Histologic grade (Melinda grade): Glandular/tubular differentiation score - 3 Nuclear pleomorphism score - 2 Mitotic count score - 2 Overall grade - grade 2 (score of 6) Tumor focality ? single focus of invasive carcinoma. Ductal carcinoma in situ - present Negative for extensive intraductal component (EIC). Size (extent) of DCIS - Estimated size of DCIS ? DCIS comprise <5% of total tumor volume. Architectural pattern - solid Nuclear grade - grade 1 Necrosis ? not identified Lobular carcinoma in situ ? not identified Tumor extension: Skin ? skin is not present. Nipple ? not applicable Skeletal muscle ? no skeletal muscle present. Margins - Invasive and Ductal carcinoma in situ are 0.5 cm away from the closest anterior margin. Regional lymph nodes: Total number of lymph nodes examined - 3 Number of sentinel lymph nodes examined - 3 Number of lymph nodes with macrometastases, micrometastases or isolated tumor cells - 0 Treatment effect - no known presurgical therapy. Lymphvascular invasion ? not identified Dermal lymphvascular invasion ? not applicable Distant metastasis ? not applicable Additional Pathologic Findings ?fibrocystic changes and intraductal hyperplasia without atypia. Ancillary Studies: Previously performed at [facility] ([id number]) [place]: positive (>95%, strong intensity) [place]: positive (>95%, strong intensity) [id number]: negative (0) Microcalcifications ? not identified Clinical History - Please make reference to previous specimen from [facility] ([id number]), right breast mass, ultrasound-guided core needle biopsy with diagnosis of ?invasive ductal carcinoma, grade 2.? PATHOLOGIC STAGE: pT1c pN0(sn) pMx The above summary is in compliance with [employer] (CAP) Cancer Protocols Checklist and [place] Joint Committee on Cancer (AJCC), Staging Manual, 8th Ed. MICROSCOPIC DESCRIPTION Slides are reviewed. GROSS DESCRIPTION A - Received fresh for frozen section consultation labeled with the patient's name is a specimen designated right axillary sentinel lymph node. The specimen consists of an irregular fragment of yellow-macias, fatty tissue measuring 11 x 5.5 x 1.5 cm. Dissection reveals a possible lymph node measuring 5 mm in greatest dimension. This possible lymph node is submitted in its entirety for frozen section consultation in one block. / AM:thalia 07/16/2022 B - Received fresh for intraoperative consultation labeled with the patient's name is a specimen designated right breast mass. The specimen consists of a piece of fibroadipose tissue with needle localization measuring 7 x 5 x 3 cm. The specimen is oriented as follows: wire - anterior, long stitch - lateral, short stitch - superior. The specimen is inked as follows: anterior - yellow, posterior - black, superior - blue, inferior - green, medial - red and lateral - orange. Serial sections reveal a macias, indurated mass measuring 1.5 x 1 x 1 cm and this mass is 0.5 cm away from the closest anterior margin. This information is conveyed to the surgeon intraoperatively. Sections of the rest of the specimen reveal macias-yellow adipose cut surfaces with scant fibrous area. Wind Development Director sections are submitted in 12 cassettes as follows: 1 - perpendicular medial, lateral and superior margins, 2 - perpendicular inferior, posterior margins, 3 - tumor with closest anterior margin, 4-6 - rest of the tumor, 7 & 8 - Wind Development Director sections adjacent to the tumor, 9-12 - Wind Development Director sections away from the tumor. Cassette 8 will be submitted after additional fixation. / SJ:thalia 07/17/2022 C - Received fresh for frozen section diagnosis labeled with the patient's name is a specimen designated right sentinel lymph nodes axillary. The specimen consists of two pieces of adipose tissue measuring 10 x 4 x 1 cm and 8 x 5.5 x 1.5 cm. Two lymph nodes are identified measuring 2 x 1 cm and 1.6 x 0.7 cm. The lymph nodes are submitted in entirety for frozen section diagnosis in two cassettes with each cassettes containing one lymph node. / AM:thalia 07/17/2022 TC:0 CPT: 19978 x3, 26603 x2, 53788, 04852
--- NOTE | 2022-07-16 | IMM_PTH ---
PATIENT: JADE OVERTON LOC: [facility] [place] U#:[id number] AGE/SX: 62/F ROOM: RE07/16/[address]: Dr. Himanshu Adasm MD : 1960 BED: DIS: 07/16/2022 SPEC #: [id number] RECD: 07/19/22 13:55 STATUS: LIZZIE REQ #: [id number] MARIVEL: 07/16/22 00:[address]: Himanshu Adams DEPT: IMMUNOHISTOCHEMISTRY RECD BY: Paz Arceo ENTERED: 07/19/22 13:59 SP TYPE: IMMUNO OTHR DR: Dr. Delano Shaw MD Tissues: A - Axillary lymph node, NOS B - Right breast, NOS C - Axillary lymph node, NOS Procedures: E-CAD (initial) CALPONIN-1 (add) CK7 (add) CK8 (add) E-CAD (add) Pankeratin (initial) Pankeratin (add) P40 (add) PHYSIC[facility] INSTIT[facility] [address] [address] SPECIMEN INFORMATION: Tissue Source: A ? Right axillary sentinel lymph node, B ? Right breast mass, C - Right axillary sentinel lymph nodes Clinical Info: Breast cancer Specimen Number: [id number] A, B2, B3, C1 & C2 CPT code: 45611 x3, 07053 x11 METHODOLOGY: Deparaffinized sections of prefer/formalin-fixed tissue or PAP/DQ stained slides are incubated with monoclonal/polyclonal antibodies/oligonucleotide probes. Localization is made via biotin free immunoperoxidase method. Appropriate controls are performed and reacted as expected. Results on target cell population are indicated in the following table: RESULTS: ANTIBODY / CLONE RESULT Block A AE1-3 (AE1/AE3/PCK26) negative CK7 (OV-TL12/30) negative Block B2 E-Cad (ECH-6) positive CK8 ([id number]) positive Calponin-1 (NV958D) positive P40 (BC28) positive Block B3 E-Cad (ECH-6) positive CK8 ([id number]) positive Calponin-1 (KF273V) negative P40 (BC28) negative Block C1 AE1-3 (AE1/AE3/PCK26) negative CK7 (OV-TL12/30) negative Block C2 AE1-3 (AE1/AE3/PCK26) negative CK7 (OV-TL12/30) negative These tests were developed and their performance characteristics determined by [facility]. They may not have been cleared or approved by the U.S. Food and Drug Administration. The FDA has determined that such clearance or approval is not necessary. The above immunohistochemical/dualISH markers are ordered and reviewed by the Pathologist. INTERPRETATION: A. Right axillary sentinel lymph node, biopsy: One lymph node, negative for metastatic carcinoma. B. Right breast mass, lumpectomy with wire localization: Invasive ductal carcinoma. C. Right axillary sentinel lymph nodes, biopsy: Two out of two lymph nodes, negative for metastatic carcinoma. SJ:thalia 07/20/2022
--- NOTE | 2022-07-16 11:30 | NM_ITS ---
PROCEDURE: NUCLEAR MEDICINE Injection [place] Node - RIGHT breast(s). REASON FOR EXAM: Female, 62 years old. Right breast cancer. TECHNIQUE: [place] node localization using radionuclide methods of the RIGHT breast(s) was performed following subcutaneous administration of 1.1 mCi of of sulfur colloid Tc-99m. COMPARISON STUDIES : NM - None. CR - Not available for review at this time. CT - Not available for review at this time. MR - Not available for review at this time. US - Not available for review at this time. FINDINGS: 1.1 mCi of technetium labeled sulfur colloid was injected in 4 equal aliquots subcutaneously in the periareolar region. NM/Lymph Node Injection Only IMPRESSION: Subcutaneous injection of 1.1 mCi of technetium labeled sulfur colloid in 4 equal aliquots in the periareolar region of the right breast for sentinel node imaging.. Electronically Signed: Jorge Parada MD at 12:59 EST ,
[2022-07-16] MEDS: Lactated Ringers 1,000 ML 15 ML IV ×2 (11:33→16:28)
--- NOTE | 2022-07-16 12:03 | BI_ITS ---
SURGICAL BREAST SPECIMEN RADIOGRAPH CLINICAL: Document presence of tissue clip marker in biopsy specimen. FINDINGS: Specimen shows presence of tissue clip marker. Electronically Signed: Jorge Parada MD at 15:33 EST , BI/Breast Biopsy Specimen IMPRESSION: undefined
--- NOTE | 2022-07-16 13:12 | HP.PCM_ITS ---
History and Physical Date of Admission: 07/16/22 Visit Reasons:?Discuss Surgery/Already had breast BX Chief Complaint: discuss surgery/already had breast bx Is patient in pain?: No Allergies No Known Allergies Allergy (Verified 07/09/22 12:32) Medications lovastatin 40 mg tablet 40 mg PO DAILY 30 days ##30 09/10/17 [History Confirmed 07/09/22] cyanocobalamin (vitamin B-12) 1,000 mcg capsule 1,000 mcg PO DAILY 11/09/20 [History Confirmed 07/09/22] escitalopram oxalate 5 mg tablet 5 mg PO DAILY 11/09/20 [History Confirmed 07/09/22] meloxicam 15 mg tablet 15 mg PO BID 11/09/20 [History Confirmed 07/09/22] bisoprolol fumarate 10 mg tablet 10 mg PO DAILY 01/17/21 [History Confirmed 07/09/22] PFSH Medical History? Alcohol use disorder, mild, abuse Colon cancer screening Contusion of right eyebrow Hyperlipidemia Hypertension Hypertension Laceration of eyebrow, right Obesity (BMI 30-39.9) Surgical wound dehiscence Surgical wound infection Tobacco abuse Tobacco abuse counseling Surgical History? History of removal of cyst History of tonsillectomy History of tubal ligation S/P colonoscopy with polypectomy (~11/18/17) Status post left hip replacement Family History?(Updated 07/09/22 @ 12:30 by Bridget Mars) Father DiabetesMother Hypertension Diabetes Social History? Smoking Status:? Current every day smoker alcohol intake:? never substance use type:? does not use HPI HPI HPI: 62-year-old female who is referred by Dr. Delano Shaw because of abnormal breast imaging with a mass identified in the right breast.? A written copy of my surgical consult recommendations will return to him.? On June 02, 2022 the patient had bilateral screening mammography.? This demonstrated a mass in the right breast 9 to 10 o'clock position.? A right breast ultrasound was obtained suggesting right breast 10 o'clock position +10 cm that there is an irregular hypoechoic mass measuring 1.1 x 1 x 0.8 cm.? No abnormally enlarged lymph nodes.? Cystic lesion is seen subjacent to the skin surface to the axilla measuring 1 x 0.9 x 0.5 cm felt to be consistent with a sebaceous cyst.? Patient subsequently had an ultrasound-guided needle core biopsy of this site.? 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 Estrogen receptor positive at greater than 95%.? Progesterone receptor positive greater than 95%.? HER2/santosh negative. 62-year-old female.? G2, .? Menarche at age 11.? First child born when she was 23.? She did breast-feed briefly.? No history of previous breast biopsies.? Not on estrogen replacement.? Family history only notable for a paternal grandmother who had breast cancer. The patient does not notice anything on her own self-exam Pertinent findings include ongoing tobacco use and history of left hip replacement 2 years ago with subsequent wound dehiscence and wound infection. ROS General General: Yes breast cancer; No weight change, appetite, fatigue, colon cancer or weakness HEENT HEENT: No difficulty swallowing, eye injury, eye surgery, swollen glands or hoarseness Endo Endocrine: No thyroid disease, diabetes mellitus, thyroid cancer, Hair loss, heat intolerance or cold intolerance Skin Skin: No rash or changing moles Breast Breast: No left breast lump, right breast lump, nipple discharge, breast pain, abnormal mammogram, abnormal US or breast enlargement Musc Musculoskeletal: Yes arthritis Cardio Cardiovascular: Yes high blood pressure; No murmur, pacemaker, heart disease, atrial fibrillation, heart attack, heart stent, palpitations, shortness of breat with exertion or chest pain Psych Psychiatric: Yes anxiety; No depression or hearing voices Resp Respiratory: No shortness of breath, No sleep apnea, No cough, No COPD, No asthma, No emphysema and No wheezing Gastro Gastrointestinal: No abdominal pain, No nausea or vomiting, No diarrhea, No constipation, No blood in stool, No acid reflux, No hemorrhoids, No ulcers, No gallbladder problem and No black,tarry stools Devin Hematologic: No blood thinners, No blood disorders, No bleeding, No anemia and No blood clots Neuro Neurologic: No system reviewed and no additional complaints, except as documented, No as per HPI, No abnormal gait, No abnormal hearing, No abnormal movements, No abnormal speech, No behavioral changes, No burning sensations, No confusion, No convulsions, No disequilibrium, No dizziness, No localized weakness, No frequent falls, No headache(s), No lack of coordination, No loss of vision, No memory loss, No numbness, No other visual disturbances, No radicular pain, No restless legs, No sensory deficit, No syncope, No tingling, No tremor(s), No weakness and No other Exam Const General: cooperative, comfortable and no acute distress Nutritional Appearance: obese morbidly obese Orientation: alert and awake [facility] Head: normal to inspection Eyes General: appearance normal, both eyes and all related structures Neck Neck: normal visual inspection Chest Other: Right breast: Well-healed punctate incision right breast 9:00.? Sebaceous cyst within the axillary skin fold.? Per sprint odor noted.? No focal mass no nipple discharge no axillary clavicular adenopathy Left breast: No focal mass.? No nipple discharge.? No axillary clavicular adenopathy, inframammary moisture noted bilaterally Resp Other: Increased anterior posterior diameter, clear Cardio Rate: regular rate Rhythm: regular rhythm GI Other: Soft, notably overweight, cannot detect any internal organs, nontender Musc Other: Mild kyphosis noted Skin Other: Moisture noted bilateral axilla and bilateral inframammary folds Neuro General: patient alert, patient awake and patient oriented x3 Extrem General: no calf tenderness Psych Appearance: grossly normal Assessment and Plan Assessment and Plan (1) Breast cancer: ?Status:?Acute ?Plan: Upper outer quadrant right breast invasive ductal carcinoma. I recommended the patient a stereotactic wire localized size upper outer right breast lumpectomy with blue dye nuclear tracer right axillary sentinel lymph node biopsy with conversion to lymph node dissection if indicated.? She is aware that postoperative radiotherapy will be recommended as well as postoperative radiation oncology and medical oncology consultation.? I have described to the patient and her technique, benefit, risk of alternatives. It is of note that the patient's had a previous wound infection from the hip.? We will contact infectious disease nursing.? I anticipate that the patient likely will need nasal swab and possible preoperative nasal Bactroban therapy.? She is certainly at increased operative infection risk. She has had an opportunity to ask and have questions answered.? I anticipate preoperative cleansing with antibacterial soaps and showers.? We will try to maximize hygiene prior to attempting this procedure.? Tentatively we will schedule her for August 16, 2021 I appreciate the ongoing option of assisting with her surgical care Copy: Dr. Delano Adams M.D., F.Stacie.C.S. I have examined the patient and the H&P has been reviewed. There are no clinical changes since date of exam. Himanshu Adams M.D., Felix.[email or web address].CNitinS.
--- NOTE | 2022-07-16 13:50 | OP.PCM_ITS ---
Problems Associated Problem List Diagnoses (1) Breast cancer: Report of Operation Date of Procedure: 07/16/22 Pre-Operative Diagnosis: Upper outer quadrant right breast cancer Post-Operative Diagnosis: Same Surgery/Procedure Performed:: Stereotactic wire localization upper outer quadrant right breast Wire localized upper outer quadrant right breast lumpectomy Nuclear tracer and blue dye right axillary sentinel lymph node biopsy Description of Surgical Findings:: Synoptic Portion: Element Response Options Operation performed with curative intent. Yes Tracer(s) used to identify sentinel nodes in the upfront surgery (non- neoadjuvant) setting (select all that apply). Dye and radioactive tracer Tracer(s) used to identify sentinel nodes in the neoadjuvant setting (select all that apply). Not applicable All nodes (colored or non-colored) present at the end of a dye-filled lymphatic channel were removed. Yes All significantly radioactive nodes were removed. Yes All palpably suspicious nodes were removed. Yes Biopsy-proven positive nodes marked with clips prior to chemotherapy were identified and removed. Not applicable Timeout and informed consent was obtained patient was sterilely taken the stereotactic unit placed prone on the table the right breast was placed in the cc view the marking clip in question from previous biopsy was identified stereotactic images were obtained digital information was staying on a single target site the breast was prepped with Betadine 1/2 cc of 1% lidocaine was used as a local anesthetic Kopan's needle was advanced to depth +15 mm enfast view and lateral view demonstrated adequate localization sterile dressings were applied. She was subsequently taken to the operating room for definitive resection It is of note and upon arrival to the hospital per radiology she had nuclear tracer injected into the right periareolar breast. Patient was taken to the operating placed supine table underwent general anesthesia the right arm was carefully wrapped with soft roll and placed the right angles to the table the right breast was prepped with alcohol 2 cc of isosulfan blue dye was injected and massage was performed for 3 minutes. The right breast was then sterilely prepped and draped. A oblique incision was made in the right axilla sharp dissection carried down through his tissue very small blue lymphatic tracking identified a very significant amount of fibrofatty tissue occupying the entire axilla making identification of lymph nodes extraordinarily difficult both blue dye tracking and radiotracer was utilized to the best ability neither of these were working to perfection. To the best of my ability I tracked the lymphatic channel and at the end of the the procedure was able to remove 3 sentinel nodes in line with the blue dye. Interesting enough the nuclear tracer did not highlight the lymph nodes that were removed and that were blue. In fact inspecting the entire axilla with the neoprobe did not really detect any focal area of activity. There was no palpable disease at the end no visible disease at the end the nuclear tracer at the end of the procedure. 2 separate samplings of packet of material was sent. Hemostasis was intact. A curvilinear incision was made guided by the wire electrocautery dissection performed the tumor was actually reasonably superficially placed circumferential dissection was performed and it was completely removed. It was sent to mammography and it was noted to be seemingly centralized within the excision. Margin was felt to be 5 mm after review by pathology. For marking clips were placed within the breast at the resection cavity. Because of the location the breast and axilla there was actually communication of the 2 pockets. I used 0.25% Marcaine [address] local in both spots. Because of the breast and axillary communication I elected to put a 10 round IGLESIA drain. I shorten the tip to length pulled it out through a stab incision secured to the skin with 3-0 nylon placed at the axilla both wounds were closed with deep layers of interrupted 3-0 Vicryl and then running subicular 4-0 Monocryl Steri-Strips Telfa OpSite bulky dry dressings applied. Sponge and instrument and needle counts were reported to the surgeon to be correct. Specimen upper outer quadrant right breast lumpectomy. Right axillary sentinel lymph nodes with report by pathology 3 and number all negative on frozen section. Drains 1 round 10 Tamazight IGLESIA. Blood loss minimal The patient was taken to the recovery area in satisfied condition without apparent complication Himanshu Adams M.D., F.A.C.S. Surgeon: Himanshu Adams
--- NOTE | 2022-07-16 13:54 | DCINST_ITS ---
Discharge Instructions Procedure Breast Surgery Diet Discharge Diet: No restrictions Activity Discharge Activity: May Not Drive (for 2-3 days or while taking narcotic pain meds.) May shower in (days): 1 Lifting Restrictions: 10 pounds for 1 week. Dressing / Incision Call your doctor if your incision/area has: Continuous Slow Oozing and Sudden Increased Bleeding Call your doctor if you observe: Fever of 101 or Higher Suture Line Care: Avoid Pulling/Pushing and Avoid Pinching/Bending Remove Dressing in: 1 day Additional Dressing/Incision Instructions:: Remove bulky dressing tomorrow. May leave any opsite dressing for 3-4 days. Keep dressing in place until your follow-up appointment. Please change the dressing around the drain site daily and cleanse with a Q-tip and peroxide. Keep this entire area clean and dry with no showers or tub baths until after office follow-up and after future drain removal. Follow Up Care Please Follow Up With: Himanshu Adams MD When: 07/19/22 Test Results: Test results from this visit will be discussed in further detail at your follow- up appointment, if applicable. Discharge Plan Admission Primary Reason for Your Visit: Upper outer right breast cancer Attending Provider: Himanshu Adams Primary Care Provider: Delano Shaw Discharge Orders/Prescriptions Prescriptions: New hydrocodone-acetaminophen 5-325 mg tablet 1 tab PO Q6H PRN (Reason: pain) 2 Days Qty: 8 0RF Continued lovastatin 40 mg tablet 40 mg PO DAILY 30 Days Qty: 30 Label Comments: meloxicam 15 MG tablet 15 mg PO DAILY cyanocobalamin (vitamin B-12) 1,000 MCG capsule 1,000 mcg PO DAILY bisoprolol fumarate 10 mg Tablet 10 mg PO DAILY aspirin 81 mg Tablet,Delayed Release (Dr/Ec) 81 mg PO DAILY cholecalciferol (vitamin D3) [Vitamin D3] 125 mcg (5,000 unit) Tablet 125 mcg PO DAILY Referrals / Follow Up: Delano Shaw MD [Primary Care Provider] - Disposition Disposition (needs filled in before D/C Order can be placed): Home, Self Care
[2022-07-16] MEDS: Cefazolin 2 GM in 0.9% Normal Saline 100 ML IV (14:10)
[2022-07-16] MEDS: Isosulfan Blue 1% 5 ML Vial (14:15)
[2022-07-16] MEDS: Bupivacaine Mpf 0.5% 30 ML VIAL (15:55)
[2022-07-16] MEDS: HYDROcodone Bitartrate/Apap 5/325 Tablet PO (17:35)
== END 2022-07-16 18:16 | disposition home or self-care (01) ==
LOC: SDC 10:52 → AC 10:53
PROVIDERS: PCP Family Medicine; Visit Provider Surgery
PROC: (CPT 19301; principal; 2022-07-16 13:40)
DX: C50.911 Malignant neoplasm of unspecified site of right female breast (principal); Z68.41 Body mass index [BMI] 40.0-44.9, adult; Z17.0 Estrogen receptor positive status [ER+]; Z80.3 Family history of malignant neoplasm of breast; F17.200 Nicotine dependence, unspecified, uncomplicated; E78.5 Hyperlipidemia, unspecified; I10 Essential (primary) hypertension; E66.9 Obesity, unspecified; Z96.642 Presence of left artificial hip joint
CPT/HCPCS: 19302; 38900; 00404; 19281; 38792; 76098; 88305; 88307; 88331; 88332; 88341; 88342; A9541; J7120; J2405; Q9968

== ENCOUNTER → 2022-08-14 | Outpatient (CLI) | payer OTHER, SELFPAY ==
--- NOTE | 2022-08-14 13:04 | BD_ITS ---
STUDY: DUAL ENERGY X-RAY ABSORPTIOMETRY / DXA REASON FOR EXAM: Female, 62 years old. SCREENING TECHNIQUE: Bone Mineral Density (BMD) measurements of lumbar spine and right hip were obtained. COMPARISON: None. FINDINGS: Lumbar Spine (L1-L4): g/cm2 (1.195) / T-score (1.3) / Z-score (3.0) Findings are suggestive of normal bone density with a low fracture risk. Right Femur Total: g/cm2 (1.044) / T-score (0.8) / Z-score (2.0) Right Femoral Neck: g/cm2 (0.732) / T-score (-1.1) / Z-score (0.4) BD/Dexa Bone Density Study IMPRESSION: The patient is considered osteopenic as outlined below according to World Griffin Organization (WHO) criteria with a low fracture risk. Reference Information: The T-score is the number of standard deviations above or below the standard which is normal for young adults at their peak bone mineral density. The World Health Organization (WHO) interprets the T-scores as follows: Above -1 Normal bone density Between -1 and -2.5 Osteopenia Equal to / or below -2.5 Osteoporosis As a practical clinical guideline, osteopenia may be graded as follows: Mild -1 through -1.5 Moderate -1.6 through -2.0 Severe -2.1 through -2.4 The Z-score is the number of standard deviations above or below age-matched controls. A Z-score of less than -1.5 would be considered abnormal. References: 1. NIH Osteoporosis and Related Bone Diseases www osteo.org 2. International Society for Clinical Densitometry www iscd.org 3. National Osteoporosis Foundation www nof.org Electronically Signed: Jorge Pardaa MD at 13:26 EST ,
== END | disposition home or self-care (01) ==
PROVIDERS: PCP Family Medicine; Referring Provider Internal Medicine Hematology & Oncology; Visit Provider Internal Medicine Hematology & Oncology
DX: Z78.0 Asymptomatic menopausal state (principal)
CPT/HCPCS: 77080

== ENCOUNTER → 2023-07-01 | Outpatient (CLI) | payer OTHER, SELFPAY ==
--- NOTE | 2023-07-01 09:22 | BI_ITS ---
MAMMOGRAPHY - BILATERAL DIAGNOSTIC REASON FOR EXAM: Female, 63 years old. Prior right lumpectomy with radiation and hormonal replacement. PERTINENT HISTORY: Personal history of breast cancer. Grandmother with breast cancer. TECHNIQUE: Digital bilateral breast anthony (3D mammographic acquisition) in the CC and MLO projections. 2-D mediolateral oblique (MLO) and craniocaudad (CC) views of both breasts were obtained. CAD: Full Field Digital Mammography with Computer Added Detection was performed. COMPARISON: Comparison is made with prior abdomen examination dated June 02, 2022. FINDINGS: Breast Composition: There are scattered areas of fibroglandular density. There are no dominant masses or suspicious calcifications. Since prior study, the patient underwent a lumpectomy in the upper lateral aspect of the right breast with resultant post surgical scarring. The previously seen nodule has been removed. Surgical clips are seen in the right axilla. No other significant abnormalities are identified. BI/DIAG MAMM W/CAD BILJUAN IMPRESSION: Status post lumpectomy in the upper lateral aspect of the right breast with resultant postoperative scarring. One year follow-up recommended. (A) ASSESSMENT CATEGORY: BIRADS Category 2: Benign. A letter regarding these results will be sent to the patient by the facility within 30 days. Approximately 10% of breast cancers are not detected by mammography. A normal mammogram should not delay biopsy of a clinically suspicious abnormality. Electronically Signed: Jorge Parada MD at 13:17 EST ,
== END | disposition home or self-care (01) ==
LOC: OPBI 09:21
PROVIDERS: PCP Family Medicine; Referring Provider Student in an Organized Health Care Education/Training Program; Visit Provider Student in an Organized Health Care Education/Training Program
DX: C50.911 Malignant neoplasm of unspecified site of right female breast (principal); Z17.0 Estrogen receptor positive status [ER+]
CPT/HCPCS: 77062; 77066; G0279

== ENCOUNTER → 2024-07-06 | Outpatient (CLI) | payer MEDICARE, SELFPAY ==
--- NOTE | 2024-07-06 10:47 | BI_ITS ---
MAMMOGRAPHY - BILATERAL SCREENING REASON FOR EXAM: Female, 64 years old. Routine annual screening examination. PERTINENT HISTORY: Personal history of breast cancer. History of prior right lumpectomy with radiation therapy. Grandmother with breast cancer. TECHNIQUE: Digital bilateral breast cornel (3D mammographic acquisition) in the CC and MLO projections. 2-D mediolateral oblique (MLO) and craniocaudad (CC) views of both breasts were obtained. CAD: Full Field Digital Mammography with Computer Added Detection was performed. COMPARISON: Comparison is made with prior outside examination of June 02, 2022 FINDINGS: Breast Composition: There are scattered areas of fibroglandular density. There are no dominant masses or suspicious calcifications. The patient is status post lumpectomy in the upper lateral aspect of the right breast with resultant postoperative scarring. Surgical clips are seen at operative site. Surgical clips are also seen in the right axilla. No other significant abnormalities are identified. There has been no significant change since the prior study. BI/SCRN MAMM (CAD)W/CORNEL BILAT IMPRESSION: Stable bilateral screening mammogram. Yearly follow-up mammogram recommended. (A) ASSESSMENT CATEGORY: BIRADS Category 2: Benign. A letter regarding these results will be sent to the patient by the facility within 30 days. Approximately 10% of breast cancers are not detected by mammography. A normal mammogram should not delay biopsy of a clinically suspicious abnormality. [id number] Electronically Signed: Jorge Parada MD at 12:21 EST ,
== END | disposition home or self-care (01) ==
LOC: OPBI 10:45
PROVIDERS: Referring Provider Student in an Organized Health Care Education/Training Program; Visit Provider Student in an Organized Health Care Education/Training Program
DX: Z12.31 Encounter for screening mammogram for malignant neoplasm of breast (principal); C50.411 Malignant neoplasm of upper-outer quadrant of right female breast; Z17.0 Estrogen receptor positive status [ER+]
CPT/HCPCS: 77063; 77067

== ENCOUNTER → 2024-09-01 | Outpatient (CLI) | payer MEDICARE, SELFPAY ==
--- NOTE | 2024-09-01 09:44 | BD_ITS ---
PROCEDURE: DEXA BONE DENSITY STUDY REASON FOR EXAM: F, age 64 y/o . Patient is postmenopausal.. TECHNIQUE: DEXA scan of the lumbar spine and right hip. COMPARISON: Comparison is made with prior study dated August 14, 2022. FINDINGS: Lumbar Spine (L1-L4): g/cm2 (1.209)/T-score (1.4)/Z-score (3.2) findings are suggestive of with a fracture risk. Right Femur Total: g/cm2 (1.067)/T-score (1.0)/Z-score (2.3) Right Femoral Neck: g/cm2 (0.808)/T-score (-0.4)/Z-score (1.2) The T-Scores on the most recent prior examination were: Lumbar Spine (L1-L4): There has been of bone density since the previous examination. Right Femur Total: Improvement of 2.2%.. BD/Dexa Bone Density Study IMPRESSION: NORMAL T-SCORES. Reading Location: [place] [id number]
== END | disposition home or self-care (01) ==
PROVIDERS: Referring Provider Nurse Practitioner Family; Visit Provider Nurse Practitioner Family
DX: M85.80 Other specified disorders of bone density and structure, unspecified site (principal); Z79.811 Long term (current) use of aromatase inhibitors; Z13.820 Encounter for screening for osteoporosis
CPT/HCPCS: 77080

== ENCOUNTER → 2025-05-12 | Outpatient (CLI) | payer MEDICARE, SELFPAY ==
--- NOTE | 2025-05-12 08:37 | US_ITS ---
PROCEDURE: BREAST LIMITED UNILATERAL 05/12/2025 REASON FOR EXAM: F, Age 65 y/o , PALPABLE MASS L BREAST Recent trauma. COMPARISON: Prior mammogram done earlier in the day.. TECHNIQUE: Procedure Code: USBRSTLIMIT Modality: US Procedure: BREAST LIMITED UNILATERAL. The upper inner aspect of the left breast was examined with ultrasound. FINDINGS: The palpable abnormality and mammographic abnormality corresponds to a 2.7 cm x 3.3 cm 1.2 cm complex nodular density at the 11 o'clock position of the breast at 12 cm from the nipple. With the patient's history of recent trauma, this may represent resolving hematoma. Sonographic follow-up in 4 months recommended. US/Breast Limited Unilateral IMPRESSION: Findings suggestive of hematoma corresponding to the palpable lump as described . BI-RADS 3: PROBABLY BENIGN. RECOMMENDATION: 4 month follow-up ultrasound. Reading Location: [place] [id number]
--- NOTE | 2025-05-12 09:00 | BI_ITS ---
EXAM: DIAG MAMM W/CAD, BILAT 05/12/2025 CLINICAL HISTORY: F, Age 65 y/o , PALPABLE MASS L BREAST. Personal history of breast cancer. Prior right lumpectomy and radiation treatment. TECHNIQUE: Procedure Code: [id number] Modality: MG Procedure: DIAG MAMM W/CAD, BILAT. COMPARISON: Prior exam(s) dated July 06/2024.. FINDINGS: TISSUE DENSITY: There are scattered areas of fibroglandular density. Bilateral Breast Mammographic Findings: The patient is status post lumpectomy in the deep upper lateral aspect of the right breast with postoperative scarring. Surgical clips are seen in the right axilla. There now is evidence of a 2.9 cm by 2.7 cm nodular density in the deep axillary region of the left breast corresponds with the palpable abnormality. With the patient's history of injury, this may represent a hematoma. Targeted sonographic correlation recommended. BI/DIAG MAMM W/CAD, BILAT IMPRESSION: New nodular density in the deep upper lateral aspect of the left breast as desc ribed most likely representing a post traumatic hematoma per patient's history. Sonographic correlation recommended. OVERALL FINAL ASSESSMENT BI-RADS 0: INCOMPLETE - NEED ADDITIONAL IMAGING EVALUATION. RECOMMENDATION: Ultrasound Recommended Additional Recommendation none A letter with findings and recommendations will be mailed to the patient. Reading Location: [place] [address]
== END | disposition home or self-care (01) ==
LOC: OPBI 08:35
PROVIDERS: Referring Provider Internal Medicine Medical Oncology; Visit Provider Internal Medicine Medical Oncology
DX: N63.22 Unspecified lump in the left breast, upper inner quadrant (principal); Z85.3 Personal history of malignant neoplasm of breast
CPT/HCPCS: 76642; 77062; 77066; G0279